=== PATIENT | male | born 1970 | race Caucasian/White ===

== ENCOUNTER 2022-10-06 15:44 | Outpatient (CLI) | payer OTHER, SELFPAY ==
--- NOTE | 2022-10-06 16:00 | CRLHL7_ITS ---
For Patients: As a result of the Cures Act, medical imaging exams and procedure reports are released immediately into your electronic medical record. You may view this report before your referring provider. If you have questions, please contact your health care provider. Indication: SINUS PAIN AND PRESSURE. SINUSITIS Technique: Performed without IV contrast Comparison: 03/15/2020 Findings: Frontal sinuses: Trace mucosal thickening within the frontal sinuses. Ethmoid sinuses: Patchy mucosal thickening within the ethmoid sinuses. Maxillary sinuses: Mild mucosal thickening within the inferior maxillary sinuses, left greater than right. The maxillary sinus drainage pathways are patent on both sides. Sphenoid sinuses: Trace mucosal thickening bilaterally. Patent sphenoethmoidal recesses. Nasal Cavity: Postoperative changes. No polyps. No TMJ abnormalities identified. The visualized portions of the orbits, intracranial contents and upper soft tissue neck are grossly negative. Impression: 1. Mild bilateral sinus disease. Decreased mucosal thickening left sphenoid sinus. 2. Patency of the sinus drainage pathways. Please note that all CT scans at this facility use dose modulation, iterative reconstruction, and/or weight-based dosing when appropriate to reduce radiation dose to as low as reasonably achievable. Dictated by Suman Orellana MD @ 10/07/2022 11:29:37 AM (Electronically Signed)
== END 2022-10-06 15:45 | disposition home or self-care (01) ==
LOC: CT 15:46
PROVIDERS: PCP Family Medicine; Visit Provider Otolaryngology
DX: J32.9 Chronic sinusitis, unspecified (principal); J32.3 Chronic sphenoidal sinusitis
CPT/HCPCS: 70486

== ENCOUNTER 2022-12-04 13:15 | Outpatient (CLI) | payer OTHER, SELFPAY | END 2022-12-04 13:16 | disposition home or self-care (01) | PROVIDERS: PCP Family Medicine; Visit Provider Family Medicine | DX: Z00.00 Encounter for general adult medical examination without abnormal findings (principal); E78.5 Hyperlipidemia, unspecified; R55 Syncope and collapse; Z12.5 Encounter for screening for malignant neoplasm of prostate | CPT/HCPCS: 80048; 80061; 84153 ==

== ENCOUNTER 2022-12-28 07:59 | Outpatient (CLI) | payer OTHER, SELFPAY ==
--- NOTE | 2022-12-28 08:15 | CRLHL7_ITS ---
For Patients: As a result of the Century Cures Act, medical imaging exams and procedure reports are released immediately into your electronic medical record. You may view this report before your referring provider. If you have questions, please contact your health care provider. INDICATION : Cervicalgia. TECHNIQUE : Cervical spine MRI without contrast. The following sequences were obtained: Sagittal T1, T2 weighted and STIR sequences. Axial T2-weighted and gradient sequences. COMPARISON: COMPARISONNone. FINDINGS: Mild cervical kyphosis. No recent compression fracture or marrow replacing process. Posterior fossa structures are normal. Cervical cord signal is normal. No extraspinal soft tissue abnormalities. Discs/Endplates: Disc desiccation at C4-5, C5-6 and C6-7. The remaining discs are within normal limits. Findings at individual levels as follows: Craniocervical junction: Alignment is maintained. C2-C3: No spinal canal or neural foraminal stenosis. C3-C4: Shallow central protrusion minimally flattens the thecal sac. No spinal canal stenosis. Left uncovertebral arthrosis contributes to mild left neural foraminal stenosis. No right neural foraminal stenosis. C4-C5: Shallow disc bulge flattens the thecal sac without spinal canal stenosis. No neural foraminal stenosis. C5-C6: Shallow disc bulge flattens the ventral sac without spinal canal stenosis. No neural foraminal stenosis. Left uncovertebral arthrosis contributes to mild left neural foraminal stenosis. No right neural foraminal stenosis. C6-C7: Shallow disc bulge minimally flattens the thecal sac. No spinal canal or neural foraminal stenosis. C7-T1: No spinal canal or neural foraminal stenosis. T1-2: No spinal canal or neural foraminal stenosis. IMPRESSION: 1. Scattered cervical spondylosis without high-grade spinal canal/neural foraminal stenosis or neural impingement. 2. Cervical cord signal is normal. No intradural pathology Dictated by Michael Roberts MD @ 12/28/2022 1:08:32 PM (Electronically Signed)
== END 2022-12-28 08:00 | disposition home or self-care (01) ==
PROVIDERS: PCP Family Medicine; Visit Provider Family Medicine
DX: M54.2 Cervicalgia (principal); M47.892 Other spondylosis, cervical region
CPT/HCPCS: 72141

== ENCOUNTER 2023-10-12 18:30 | Emergency (ER) | payer BC, SELFPAY ==
[2023-10-12 18:36] VITALS: BP 141/97; PULSE 98; RESP 18; TEMP 36.5; O2SAT 98; BMI 22.9
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
--- OUTSIDE RECORDS SUMMARY | 2023-10-12 18:59 | XMS_ITS | Continuity of Care Document ---
Author Name Unknown Organization [facility] Address [address] [place] [address] Care Team Providers Care Assembler Clip On Sunglasses Name Role Phone Elsewhere, Pcp Primary Care Provider Unavailabl e Source Comments Patient records contain information from all sites at [facility]. For routine questions regarding patient records, call [phone] during business hours, M-F 8:00 AM - 5:00 PM Central Time. Record requests for emergency care only can be directed to [phone] at any time.[facility] Encounters Date Type Department Care Team Description 10/07/2023 Clinical Communication Pharmacy Prior Auth [id number] Larry Jones RX Approval (Emgality 120MG/ML Solution Auto-Injector) 10/04/2023 Orders Only [facility] Pharm[facility] - [address] [phone] Glenda Richards C.Ph.T. 10/03/2023 Refill Department of Neurology in [place], [place] [address] [place] [address] Alber Powers M.D. Med Refill 09/17/2023 [facility] [address] [place] [address] Palmer Quijano M.D. Sinusitis Chronic (Primary Dx) 08/31/2023 Clinical Communication Pharmacy Prior Auth [id number] Jenny Márquez 08/30/2023 Refill Department of Neurology in [address] [address] Leticia De Los Santos M.D. Med Refill 08/30/2023 Refill Department of Neurology in [address] [address] Alber Powers M.D. Med Refill 08/20/2023 3:15 PM CDT Office Visit Department of Neurology in [address] [address] Alber Powers M.D. Occipital Neuralgia (Primary Dx); Migraine Headache; Headache Unspecified 06/22/2023 9:15 AM [place] Procedure visit Department of Neurology in [address] [phone] Trinity Rivers D.O. Occipital Neuralgia 04/14/2023 9:15 AM [place] Procedure visit Department of Neurology in [address] [address] Alber Powers M.D. Occipital Neuralgia 04/02/2023 2:30 PM CDT Comprehensive Visit Department of Neurology in [address] [address] Alber Powers M.D. Migraine Headache (Primary Dx); Occipital Neuralgia 09/21/2022 Orders Only Department of Sleep Medicine in [address] [address] Eduardo Daley M.D., M.P.H. 05/20/2021 1:30 PM [place] Procedure visit Department of Physical Medicine and Rehabilitation in [address] [phone] Mannie Ashford D.O. Pain Neck (Primary Dx); Myofascial Pain Syndrome; Myalgia 04/28/2021 Clinical Communication Department of Physical Medicine and Rehabilitation in [address] [phone] Mannie Ashford D.OCristel 04/18/2021 Orders Only Department of Physical Medicine and Rehabilitation in [place], [place] [address] [place] [address] Mannie Ashford D.O. Pain Neck (Primary Dx); Myofascial Pain Syndrome 04/15/2021 3:30 PM [place] Comprehensive Visit Department of Physical Medicine and Rehabilitation in [address] [phone] Mannie Ashford D.O. Pain Neck (Primary Dx); Spondylosis Cervical Without Myelopathy; Myofascial Pain Syndrome 04/03/2021 2:30 PM CDT Office Visit Department of Neurology in [address] [phone] Eduardo Daley M.D., M.P.H. 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 02/20/2021 Orders Only Department of Pain Medicine in [address] [address] Mannie Wild D.O. 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 Dauffenbach, Jason P, D.O. Pain Neck; Spondylosis Cervical Without Myelopathy Discharge Disposition: Home or Self Care 01/29/2021 Clinical Communication Department of Pain Medicine in [address] [address] Mannie Wild D.O. 01/23/2021 9:15 AM CDT Comprehensive Visit Department of Physical Medicine and Rehabilitation in [address] [address] Mannie Ashford D.O. Pain Neck (Primary Dx); Spondylosis Cervical Without Myelopathy; Myofascial Pain Syndrome; Stenosis Spinal Cervical 01/20/2021 Clinical Communication Department of Sleep Medicine in [place], [place] [address] [place] [phone] Edaurdo Daley M.D., M.P.H. 01/20/2021 7:29 AM CDT - 01/20/2021 11:59 PM CDT Hospital Encounter Department of Radiology in [place] [address] [place] [phone] Eduardo Daley M.D., M.P.H. Post Traumatic Headache Unspecified Not Intractable Discharge Disposition: Home or Self Care 01/20/2021 7:29 AM CDT - 01/20/2021 11:59 PM CDT Hospital Encounter Department of Radiology in [place], [place] [address] [place] [address] Eduardo Daley M.D., M.P.H. Post Traumatic Headache Unspecified Not Intractable Discharge Disposition: Home or Self Care 01/14/2021 9:04 AM CDT - 01/14/2021 11:59 PM CDT Hospital Encounter Department of Radiology in [address] [address] Eduardo Daley M.D., M.P.H. Post Traumatic Headache Unspecified Not Intractable; Pain Neck Discharge Disposition: Home or Self Care 01/14/2021 8:00 AM CDT Comprehensive Visit Department of Neurology in [address] [phone] Eduardo Daley M.D., M.P.H. Pain Neck (Primary Dx); Post Traumatic Headache Unspecified Not Intractable Allergies No known active allergies Medications Medication Sig Dispensed Refills Start Date End Date Status omega 7-bwr-vyh-fish oil 1,000 mg (120 mg-180 mg) capsule Take 1 capsule by mouth. Takes during the school year. 09/28/2016 Active amoxicillin-pot clavulanate (AUGMENTIN) 875-125 mg per tablet Take 1 tablet by mouth 2 (two) times a day. 03/23/2023 Active rizatriptan GRAVITY PROSPECTING OPERATOR HELPER (MAXALT-GRAVITY PROSPECTING OPERATOR HELPER) 5 mg disintegrating tablet Dissolve 5 mg in the mouth as needed. 04/04/2023 Active gabapentin (Neurontin) 100 mg capsule 1 cap every night for 3 days. If symptoms not improved, increase dose per med sched to maximum 3 cap 3 times daily. 270 capsule 12 08/20/2023 Active SUMAtriptan (IMITREX) 100 mg tablet Take 1 tablet (100 mg total) by mouth as needed for migraine. May repeat dose once in 2 hours if migraine unresolved. Do not exceed 200 mg in 24 hours. 9 tablet 5 08/30/2023 Active galcanezumab-gnlm (EMGALITY) 120 mg/mL injection Inject 1 mL (120 mg total) under the skin every 30 (thirty) days. One time 240 mg dose 1 mL 11 08/31/2023 Active Active Problems Problem Noted Date Diagnosed Date Occipital Neuralgia 04/02/2023 Migraine Headache 04/03/2021 Post Traumatic Headache Unspecified Not Intracta ble 04/03/2021 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 Smoking Status as of 10/12/2023 Tobacco Use Types Packs/Day Years Used Date Smoking Tobacco: Never Assessed Social Connection and Isolat ion Panel [NHANES] Answer Date Recorded In a typical week, how many times do you talk on the phone with family, friends, or neighbors? More than three times a week 01/20/2021 How often do you get togethe r with friends or relatives? Twice a week 01/20/2021 How often do you attend chur or pentecostalism services? Never 01/20/2021 Do you belong to any clubs o r organizations such as samaritan groups, unions, fraternal or athletic groups, or school groups? Yes 01/20/2021 How often do you attend meet ings of the clubs or organizations you belong to? More than 4 times per year 01/20/2021 Are you , , di vorced, , never , or living with a partner? 01/20/2021 AUDIT-C Answer Date Recorded Q1: How often do you have a drink containing alcohol? 4 or more times a week 01/20/2021 Q2: How many drinks containi ng alcohol do you have on a typical day when you are drinking? 1 or 2 Q3: How often do you have si x or more drinks on one occasion? Less than monthly 01/20/2021 Overall Financial Resource Strain (CARDIA) Answe r Date Recorded How hard is it for you to pa y for the very basics like food, housing, medical care, and heating? Not hard at all 01/20/2021 [facility] - Occupational Stress Questionnaire Answer Date Recorded Do you feel stress - tense, restless, nervous, or anxious, or unable to sleep at night because your mind is troubled all the time - these days? Only a little 01/20/2021 Exercise Vital Sign Answer Date Recorde d On average, how many days pe r week do you engage in moderate to strenuous exercise (like a brisk walk)? 3 days 01/20/2021 On average, how many minutes do you engage in exercise at this level? 90 min 01/20/2021 Hunger Vital Sign Answer Date Recorded Within the past 12 months, y ou worried that your food would run out before you got the money to buy more. Never true 01/21/20 21 Within the past 12 months, t he food you bought just didn't last and you didn't have money to get more. Never true 01/20/2021 PRAPARE - Transportation Answer Date Re corded In the past 12 months, has l ack of transportation kept you from medical appointments or from getting medications? No 01/05 In the past 12 months, has l ack of transportation kept you from meetings, work, or from getting things needed for daily living? No 01/20/2021 Housing Stability Vital Sign Answer Isrrael e Recorded In the last 12 months, was t here a time when you were not able to pay the mortgage or rent on time? No 01/20/2021 In the last 12 months, how many places have you lived? 1 01/20/2021 In the last 12 months, was t here a time when you did not have a steady place to sleep or slept in a care home (including now)? No 01/20/2021 Nutrition Answer Date Recorded Nutrition: EVOO Fat Source Yes 01/20 On average, how many serving s of fruits and vegetables do you eat per day (serving size is equal to 1 cup or approximately the size of a tennis ball)? 0-1 01/20/2021 Dental Answer Date Recorded Dental: Regular Dentist Yes 06/18/19 Employment Answer Date Recorded Employment status Employed and actively working without restrictions 01/20/2021 Education Answer Date Recorded What is the highest level of school you have completed or the highest degree you have received? 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, [employer], [employer]) 01/20/2021 Sex and Gender Information Value Date Recorded Sex Assigned at Not on file Gender Identity Male 12/30/2020 8:23 AM CDT Sexual Orientation Straight 12/30/2020 8: 23 AM CDT Last Filed Vital Signs Vital Sign Reading Time Taken Comments Blood Pressure 132/85 08/20/2023 2:57 PM CDT Pulse 95 08/20/2023 2:57 PM CDT Temperature 36 ??C (96.8 ??F) 03/11/2021 10:44 AM CDT Respiratory Rate 16 03/11/2021 10:44 AM CDT Oxygen Saturation 100% 03/11/2021 10:35 AM CDT Inhaled Oxygen Concentration - - Weight 71 kg (156 lb 8.4 oz) 08/20/2023 2:57 PM CDT Height 172.7 cm (5' 8) 03/11/2021 9:55 AM CDT Body Mass Index 23.8 03/11/2021 9:55 AM CDT Plan of Treatment Upcoming Encounters Date Type Department Care Team (Late st Contact Info) Description 11/15/2023 9:30 AM CDT Comprehensive Visit Department of Neurology in [place], [place] [address] [place] [address] Alex Clinton M.D. [address] [place] [address] Procedures Procedure Name Priority Date/Time Associated Diagnosis Comments PM NERVE BLOCK INJECTION Routine 06/22/2023 9:15 AM [place] Occipital Neuralgia HEADACHE NERVE BLOCKS - NEUROLOGY Routine 04/14/2023 9:15 AM [place] Occipital Neuralgia WY INJ TRIGGER PNT >=3 MUS Routine 05/20/2021 2:04 PM [place] Pain Neck Myofascial Pain Syndrome FL CERVICAL SPINE MEDIAL BRANCH NERVE BLOCK INJECTION Routine 03/11/2021 10:48 AM CDT Spondylosis Cervical Without Myelopathy FL CERVICAL SPINE MEDIAL BRANCH NERVE BLOCK INJECTION Routine 02/20/2021 4:35 PM CDT Pain Neck Spondylosis Cervical Without Myelopathy MR BRAIN WITHOUT AND WITH IV CONTRAST RAD - Routine (most inpatients and all outpatients) 01/20/2021 8:55 AM CDT Post Traumatic Headache Unspecified Not Intractable MR CERVICAL SPINE WITHOUT IV CONTRAST RAD - Routine (most inpatients and all outpatients) 01/20/2021 8:34 AM CDT Post Traumatic Headache Unspecified Not Intractable DX CERVICAL SPINE 2-3 VIEWS RAD - Routine (most inpatients and all outpatients) 01/14/2021 9:26 AM CDT Post Traumatic Headache Unspecified Not Intractable Pain Neck ECHOCARDIOLOGY IMAGE EXAM Routine 03/22/2015 9:22 AM CDT ECHO STRESS Routine 03/22/2015 9:11 AM CDT RADIOLOGY IMAGE EXAM Routine 06/24/2010 2:27 PM [place] Results * Nerve Block Injection (06/22/2023 9:15 AM [place]) Narrative Trinity Rivers D.O. - 06/22/2023 9:15 AM [place] Trinity Rivers D.O. ? 06/22/2023 ??9:54 AM Nerve Block Injection Performed by: Trinity Rivers D.O. Authorized by: Trinity Rivers D.O. ?? Care team members present 1. Va Perez L.PNeil PROCEDURE SUMMARY Indications: Occipital neuralgia/migraine ?? Body area: head/face/neck Procedure location (head/face/neck nerve): Left greater occipital Greater occipital position: seated Needle size: 25 G Needle length: other (5/8 needle) Nerve block type: single injection INJECTED MEDICATIONS: Injection(s), anesthetic agent(s) and/or steroid(s): The injected medication(s) listed was divided equally between the identified injection location(s) Total volume of injectate (mL): 1.5ml ?? 1 mL BUPivacaine 0.5 % (5 mg/mL) 20 mg methylPREDNISolone acetate 40 mg/mL PROCEDURE DETAILS Greater occipital description: The patient was placed in the appropriate position with the neck in a flexed position. ??Prior to the procedure, the occipital protuberance was palpated, and a point one third from the midline on a line that connects the occipital protuberance to the mastoid process was identified as the anticipated location of the greater occipital nerve. ??Palpation was also performed to note the location of the occipital artery. The needle was introduced in a caudal to cephalad approach at a shallow angle taking care to gently contact periosteum. ?? After negative aspiration the medication was introduced in a fan like manner. Following the injection, the needle was withdrawn. ??The patient tolerated the procedure well and there were no apparent complications. ?? After an appropriate amount of observation, the patient was dismissed from the clinic in good condition under their own power. ?? Complications: no apparent complications ?? CONSENT Consent obtained: verbal Consent given by: Patient Code Number Stamper was present. PRE-PROCEDURE DETAILS Appropriate hand hygiene, gown, cap, mask, protective eyewear, sterile gloves, skin preparation, sterile drape, and strict aseptic technique were utilized as applicable for the procedure.: yes ?? Skin preparation: alcohol Trinity Rivers D.O. PROCEDURE/MINOR SURG ICAL ORDERABLES * Headache nerve block - Neurology (04/14/2023 9:15 AM [place]) Narrative [facility] - 04/14/2023 9:15 AM [place] Alber Powers M.D. ? 04/14/2023 ??9:28 AM Headache nerve block - Neurology Performed by: Alber Powers M.D. Authorized by: Alber Powers M.D. ?? Care team members present 1. Alber Powers M.D. 2. Va Perez, LCristelPCristelNCristel PROCEDURE SUMMARY Indications: occipital neuralgia Pre procedure pain score: 3/10 Post procedure pain score: 0/10 ?? Body area: head/face/neck Procedure location (head/face/neck nerve): Left greater occipital and Left lesser occipital Greater occipital position: seated Lesser occipital position: seated Needle size: 21 G Needle length: 2 in Nerve block type: single injection Nerve stimulator: no INJECTED MEDICATIONS: Injection(s), anesthetic agent(s) and/or steroid(s): The injected medication(s) listed was divided equally between the identified injection location(s) Total volume of injectate (mL): 6 Total steroid in injectate (mg): 0 ?? 4 mL BUPivacaine 0.5 % (5 mg/mL) 2 mL lidocaine 10 mg/mL (1 %) PROCEDURE DETAILS Greater occipital description: The patient was placed in the appropriate position with the neck in a flexed position. ??Prior to the procedure, the occipital protuberance was palpated, and a point one third from the midline on a line that connects the occipital protuberance to the mastoid process was identified as the anticipated location of the greater occipital nerve. ??Palpation was also performed to note the location of the occipital artery. The needle was introduced in a caudal to cephalad approach at a shallow angle taking care to gently contact periosteum. ?? After negative aspiration the medication was introduced in a fan like manner. Following the injection, the needle was withdrawn. ??The patient tolerated the procedure well and there were no apparent complications. ?? After an appropriate amount of observation, the patient was dismissed from the clinic in good condition under their own power. ?? Lesser occipital description: The patient was placed in the appropriate position with the neck in a flexed position. ??Prior to the procedure, the occipital protuberance was palpated and a point two thirds from the midline on a line that connects the occipital protuberance to the mastoid process was identified as the anticipated location of the lesser occipital nerve. The needle was introduced in a caudal to cephalad approach at a shallow angle taking care to gently contact periosteum with the tip of the needle at a shallow depth. ??After negative aspiration the medication was introduced in a fan like manner. Following the injection, the needle was withdrawn. ??The patient tolerated the procedure well and there were no apparent complications. ??After an appropriate amount of observation, the patient was dismissed from the clinic in good condition under their own power. ?? Complications: no apparent complications ?? CONSENT Consent obtained: written (Risks, benefits and alternatives were discussed and a written Informed Consent was obtained. Please see Informed Consent form for further details.) UNIVERSAL PROTOCOL All relevant documentation and testing were reviewed and available. All required blood products, implants, devices and or special equipment were made available as applicable. Pre-procedure verification was conducted and the correct site was marked if required. A fire risk assessment was done as applicable. The procedural time-out to verify correct patient, correct side/site, and procedure was conducted prior to performing the procedure and confirmed in a procedural pause. PRE-PROCEDURE DETAILS Appropriate hand hygiene, gown, cap, mask, protective eyewear, sterile gloves, skin preparation, sterile drape, and strict aseptic technique were utilized as applicable for the procedure.: yes ?? Skin preparation: alcohol SEDATION / ANESTHESIA Anesthesia method: nerve block Nerve block type: lidocaine, bupivacaine Alber Powers M.D. NEUROLOGY ORDERAB LES [facility] NA * WY INJ TRIGGER PNT >=3 MUS (05/20/2021 2:04 PM [place]) Narrative [facility] - 05/20/2021 2:04 PM [place] Mannie Ashford D.O. ? 05/21/2021 ??1:44 PM [facility]R Trigger Point Injection (Procedure Only) (Left cervical and left thoracic) Date/Time: 05/20/2021 2:04 PM Performed by: Mannie Ashford D.O. Authorized by: Mannie Ashford D.O. Care team members present 1. Rex Mcdonough, L.A.T., A.T.C. PROCEDURE SUMMARY Soft tissue site: left cervical and left thoracic Cervical: Levator scapula, upper trapezius, and rhomboid Thoracic: Lattisimus dorsi Cervical position: seated Thoracic position: prone Needle size: 27 G Needle length: 1.25 in Number of muscles injected: 3 or more muscles INJECTED MEDICATIONS The injected medication(s) listed was divided equally between the identified injection location(s) ?? Total volume of injectate (mL): ??6 2 mL lidocaine 10 mg/mL (1 %) 2 mL ropivacaine (PF) 2 mg/mL (0.2 %) 10 mg triamcinolone acetonide 40 mg/mL Other medication: ??1 mL of 8.4% sodium bicarbonate PROCEDURE DETAILS Cervical procedure description: The patient was placed in the appropriate position. Prior to the procedure, the appropriate cervical region was examined to determine the location of the trigger point(s) and optimal needle path. Thereafter, a needle was advanced into the trigger point(s) and after negative aspiration, the medication was injected. Following the injection, the needle was withdrawn. ??The patient tolerated the procedure well and there were no apparent complications. ??After an appropriate amount of observation, the patient was dismissed from the clinic in good condition under their own power. ?? Thoracic procedure description: The patient was placed in the appropriate position. ??Prior to the procedure, the thoracic region was examined to determine the location of the trigger point(s) and optimal needle path. Thereafter, a needle was advanced into the trigger point(s) and after negative aspiration, the medication was injected. Following the injection, the needle was withdrawn. ??The patient tolerated the procedure well and there were no apparent complications. ??After an appropriate amount of observation, the patient was dismissed from the clinic in good condition under their own power. ?? Complications: no apparent complications ?? ADDITIONAL PROCEDURE COMMENTS PPE use information for possible contact monitoring: PPE used during visit: Provider was wearing a mask throughout entire session. Patient was wearing a mask throughout entire session. CONSENT Consent obtained: written PRE-PROCEDURE DETAILS Appropriate hand hygiene, gown, cap, mask, protective eyewear, sterile gloves, skin preparation, sterile drape, and strict aseptic technique were utilized as applicable for the procedure.: hand hygiene performed ?? Skin preparation: ??Chlorhexidine SEDATION / ANESTHESIA Anesthesia method: topical application Topical application type: aerosol cold spray Mannie Ashford D.O. PROCEDURE/MINOR SURG ICAL ORDERABLES [facility] NA * Cervical Spine Medial Branch Nerve (03/11/2021 10:48 AM CDT) Only the most recent of2 resultswithin the time period is included. Narrative Mannie Wild D.O. - 03/11/2021 10:21 AM CDT Mannie Wild D.O. ? 03/11/2021 10:40 AM Cervical Spine Medial Branch Nerve Date/Time: 03/11/2021 10:21 AM Performed by: Mannie Wild D.O. Authorized by: Mannie Wild D.O. PROCEDURE SUMMARY Indications: Spondylosis without myelopathy Site: cervical Cervical: medial branch block Medial branch nerve block innervating the Right C4-C5, Right C5-C6, Right C6-C7, Left C4-C5, Left C5-C6 and Left C6-C7 facet joints. Needle or RF cannula: Spinal Needle size: 25 G Needle length: 3.5 in Flow: not applicable Patient position: prone INJECTED MEDICATIONS Total volume of injectate (mL): 4 ?? 4 mL bupivacaine 0.5 % (5 mg/mL) 2 mL iohexoL 300 mg iodine/mL Other medication: ??Glycopyrrolate 0.2 mg PROCEDURE DETAILS ?? Medial branch block - cervical: Using fluoroscopy, the mid-body of the articular pillar at the appropriate levels were identified and marked. Using fluoroscopic guidance, a spinal needle was advanced to each target. After negative aspiration, the contrast was injected at each site. Spread of contrast approximated the region of the medial branches/dorsal ramus and there was no evidence of intravascular uptake. The patient tolerated the procedure well and there were no apparent complications. After appropriate observation, the patient was dismissed in good condition under their own power. The patient was instructed to keep a pain diary and report the results of the injection. ?? CONSENT Consent obtained: written (splunk architect present) UNIVERSAL PROTOCOL All relevant documentation and testing were reviewed and available. All required blood products, implants, devices and or special equipment were made available as applicable. Pre-procedure verification was conducted and the correct site was marked if required. A fire risk assessment was done as applicable. The procedural time-out was conducted prior to performing the procedure and confirmed in a procedural pause. PRE-PROCEDURE DETAILS Procedure purpose: ??Diagnostic Appropriate hand hygiene, gown, cap, mask, protective eyewear, sterile gloves, skin preparation, sterile drape, and strict aseptic technique were utilized as applicable for the procedure: yes ?? Site preparation: ??Chlorhexidine SEDATION / ANESTHESIA Anesthesia method: none ATTESTATION STATEMENT The teaching physician rule is not applicable. Mannie Wild D.O. FLUORO GUIDED P AIN PROCEDURES * MR Brain without and with IV Contrast (01/20/2021 8:55 AM CDT) Anatomical Region Laterality Modality Head, Brain, Neuroradiology [facility], Neuroradiology [facility], [facility]adiology [facility] N/A Magnetic Resonance 01/20/2021 9:25 AM CDT Impressions 01/20/2021 9:43 AM CDT 1. Nonspecific scattered T2 FLAIR hyperintense white matter lesions which could be seen in the setting of chronic migraine or chronic small vessel ischemic changes. 2. No acute infarct, focal parenchymal enhancement or mass. Narrative 01/20/2021 9:43 AM CDT EXAM: MR BRAIN WITHOUT AND WITH IV CONTRAST COMPARISON:None pertinent to this exams. FINDINGS: No abnormal restricted diffusion to suggest acute infarct. No microhemorrhages. Scattered T2 FLAIR hyperintense lesions involving bilateral centrum semiovale and masterson radiata. No associated abnormal enhancement. No midline shift. The basal cisterns are patent. Flow voids of the major arteries in the skull base are intact. Bilateral orbits, paranasal sinuses and mastoid air cells are normal in signal. Procedure Note Israel Andrew M.B., Castro Santos - 01/20/2021 EXAM: MR BRAIN WITHOUT AND WITH IV CONTRAST COMPARISON:None pertinent to this exams. FINDINGS: No abnormal restricted diffusion to suggest acute infarct. No microhemorrhages. Scattered T2 FLAIR hyperintense lesions involving bilateral centrumsemiovale and masterson radiata. No associated abnormal enhancement. No midline shift. The basal cisterns are patent. Flow voids of the major arteries in the skull base are intact. Bilateral orbits, paranasal sinuses and mastoid air cells are normal insignal. IMPRESSION: 1. Nonspecific scattered T2 FLAIR hyperintense white matter lesions whichcould be seen in the setting of chronic migraine or chronic small vesselischemic changes. 2. No acute infarct, focal parenchymal enhancement or mass. Eduardo Daley M.D., M.P.H. [facility] MRI PROC EDURES * MR Cervical Spine without IV Contrast (01/20/2021 8:34 AM CDT) Anatomical Region Laterality Modality Spine, Cervical Spine, Neuro radiology [facility], Neuroradiology [facility], Neuroradiology [facility] N/A Magneti c Resonance 01/20/2021 8:37 AM CDT Impressions 01/20/2021 8:55 AM CDT 1. No acute fracture or traumatic listhesis. 2. Unchanged mild reversal of cervical lordosis. 3. Mild cervical spondylosis mostly at C6-C7 level with mild bilateral neural foraminal narrowing. Narrative 01/20/2021 8:55 AM CDT EXAM: ??MR CERVICAL SPINE WITHOUT IV CONTRAST COMPARISON: ??Cervical spine radiograph, 01/14/2021 FINDINGS: Craniocervical alignment is normal. Reversed lordosis centered at C4 level, unchanged. Bone marrow signal is age-appropriate. The spinal cord is normal in signal. Skull base-C2: ??The foraminal magnum is patent. C2-3: ??Central canal and neural foramina are patent. C3-4: ??Small disc bulge with mild effacement of the ventral thecal sac. No significant neural foraminal narrowing. C4-5: ??Small disc bulge with mild-moderate effacement of the ventral thecal sac. No significant neural foraminal narrowing. C5-6: ??Central canal and neural foramina are patent. C6-7: ??Mild uncovertebral and facet hypertrophy with mild bilateral neural foraminal narrowing. The central canal is patent. C7-T1: ??Central canal and neural foramina are patent. The paraspinal soft tissues are unremarkable. Procedure Note Israel Andrew M.B., Castro Santos - 01/20/2021 EXAM: MR CERVICAL SPINE WITHOUT IV CONTRAST COMPARISON: Cervical spine radiograph, 01/14/2021 FINDINGS: Craniocervical alignment is normal. Reversed lordosis centered at T3inzkb, unchanged. Bone marrow signal is age-appropriate. The spinal cord is normal insignal. Skull base-C2: The foraminal magnum is patent. C2-3: Central canal and neural foramina are patent. C3-4: Small disc bulge with mild effacement of the ventral thecal sac.No significant neural foraminal narrowing. C4-5: Small disc bulge with mild-moderate effacement of the ventralthecal sac. No significant neural foraminal narrowing. C5-6: Central canal and neural foramina are patent. C6-7: Mild uncovertebral and facet hypertrophy with mild bilateralneural foraminal narrowing. The central canal is patent. C7-T1: Central canal and neural foramina are patent. The paraspinal soft tissues are unremarkable. IMPRESSION: 1. No acute fracture or traumatic listhesis. 2. Unchanged mild reversal of cervical lordosis. 3. Mild cervical spondylosis mostly at C6-C7 level with mild bilateralneural foraminal narrowing. Eduardo Daley M.D., M.P.H. [facility] MRI PROC EDURES * DX Cervical Spine 2-3 Views (01/14/2021 9:26 AM CDT) Anatomical Region Laterality Modality Cervical Spine, Musculoskele marian RST LOS, Neuroradiology ARZ LOS, Muskuloskeletal FLA LOS N/A Digita l Radiography 01/14/2021 9:42 AM CDT Impressions 01/14/2021 9:44 AM CDT Vertebral body heights maintained without evidence of vertebral compression fracture. Mild broad reversal of the normal cervical lordosis. No focal spondylolisthesis or angulation at any level. Mild to moderate degenerative disc disease from C4-C7. Facet arthropathy is moderate in severity and most pronounced bilaterally at C7-T1. Prevertebral soft tissues are normal. Lung apices are clear. Narrative 01/14/2021 9:44 AM CDT EXAM: DX CERVICAL SPINE 2-3 VIEWS Procedure Note Josef Bowling M.D. - 01/14/2021 EXAM: DX CERVICAL SPINE 2-3 VIEWS IMPRESSION: Vertebral body heights maintained without evidence of vertebral compression fracture. Mild broad reversal of the normal cervical lordosis.No focal spondylolisthesis or angulation at any level. Mild to moderate degenerative disc disease from C4-C7. Facet arthropathy is moderate inseverity and most pronounced bilaterally at C7-T1. Prevertebral soft tissues arenormal. Lung apices are clear. Eduardo Daley M.D., M.P.H. [facility] IMAGING PROCEDURES * ECHOCARDIOLOGY IMAGE EXAM (03/22/2015 9:22 AM CDT) Anatomical Region Laterality Modality Other 03/22/2015 9:22 AM CDT Addenda Addendum by ProviderEdgar M.D. on 03/22/2015 9:22 AM CDT ECHO^^^MCR Non-Radiology Image 03/22/2015 09:22:00 Historical Provider IMG NON RAD IMAGING PROCEDURES * Echo Stress (03/22/2015 9:11 AM CDT) Anatomical Region Laterality Modality Echocardiography 03/22/2015 9:11 AM CDT Historical Provider CV ECHO PROCEDURES * XR Chest 2 Views (06/24/2010 2:27 PM [place]) Anatomical Region Laterality Modality Other 06/24/2010 2:27 PM [place] Historical Provider IMG NON RAD IMAGING PROCEDURES Visit Diagnoses Diagnosis Start Date Post Traumatic Headache Unspecified Not Intractable 01/14/2021 Pain Neck 01/14/2021 Post Traumatic Headache Unspecified Not Intractable 01/14/2021 Pain Neck 01/14/2021 Post Traumatic Headache Unspecified Not Intractable 01/20/2021 Post Traumatic Headache Unspecified Not Intractable 01/20/2021 Pain Neck 01/23/2021 Spondylosis Cervical Without Myelopathy 01/23/2021 Myofascial Pain Syndrome 01/23/2021 Stenosis Spinal Cervical 01/23/2021 Spondylosis Cervical Without Myelopathy 02/20/2021 Pain Neck 02/20/2021 Spondylosis Cervical Without Myelopathy 02/20/2021 Spondylosis Cervical Without Myelopathy 03/11/2021 Migraine Headache 04/03/2021 Post Traumatic Headache Unspecified Not Intractable 04/03/2021 Pain Neck 04/15/2021 Spondylosis Cervical Without Myelopathy 04/15/2021 Myofascial Pain Syndrome 04/15/2021 Pain Neck 04/18/2021 Myofascial Pain Syndrome 04/18/2021 Pain Neck 05/20/2021 Myofascial Pain Syndrome 05/20/2021 Myalgia 05/20/2021 Migraine Headache 04/02/2023 Occipital Neuralgia 04/02/2023 Occipital Neuralgia 04/14/2023 Occipital Neuralgia 06/22/2023 Occipital Neuralgia 08/20/2023 Migraine Headache 08/20/2023 Headache Unspecified 08/20/2023 Sinusitis Chronic 09/17/2023 Care Teams Assembler Clip On Sunglasses Relationship Specialty Start Date End Date Elsewhere, Pcp PCP - General Family Medicine 02/20/21
--- OUTSIDE RECORDS SUMMARY | 2023-10-12 18:59 | XMS_ITS | Clinical Summary ---
Author Name Unknown Organization [facility] Address [place], [place] [address] Care Team Providers Care Delivery Manager Name Role Phone Giacomo Mcclain MD Primary Care Provider [phone] Allergies No known active allergies Medications Medication Sig Dispensed Refills Start Date End Date Status csejmbxf-hkr-YO-lyc open-lutein (CENTRUM SILVER MEN) 300-600-300 mcg tab Take 1 tablet by mouth once daily. 0 09/28/2016 Active Txekx-8-GNU-EPA-Fis h Oil (FISH OIL) 1,000 mg (120 mg-180 mg) cap Take 1 capsule by mouth once daily. 0 09/28/2016 Active nortriptyline (PAMELOR) 10 mg capsule 02/04/2022 Active SUMAtriptan (IMITREX) 100 mg tablet 02/23/2022 Active diclofenac (VOLTAREN) 75 mg delayed-release tablet Take 75 mg by mouth. 10/07/2020 Active methylPREDNISolone (Medrol, John,) 4 mg tabletIndications:S ubacute maxillary sinusitis Take by mouth as instructed per packaging. 21 Tablet 04/15/2022 Active 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 Tobacco Use Types Packs/Day Years Used Date Smoking Tobacco: Never Smokeless Tobacco: Never Tobacco Cessation:Counseling Given: Yes Social Connections Answer Date Recorded Frequency of Communication with Friends and Fami ly Not on file 06/07/2021 Financial Resource Strain Answer Date R ecorded Difficulty of Paying Living Expenses Not on file 06/07/2021 Difficulty of Paying Living Expenses Not on file 06/07/2021 Sex and Gender Information Value Date Recorded Sex Assigned at Not on file Gender Identity Not on file Sexual Orientation Not on file Obstetrics History Last Filed Vital Signs Vital Sign Reading Time Taken Comments Blood Pressure 120/80 04/15/2022 12:48 PM ASSISTANCE COORDINATOR Pulse 98 04/15/2022 12:58 PM ASSISTANCE COORDINATOR Temperature 36.4 ??C (97.6 ??F) 04/15/2022 12:[address] Respiratory Rate 14 04/15/2022 12:48 PM ASSISTANCE COORDINATOR Oxygen Saturation 98% 04/15/2022 12:48 PM ASSISTANCE COORDINATOR Inhaled Oxygen Concentration - - Weight 68.6 kg (151 lb 4.8 oz) 04/15/2022 12:48 PM ASSISTANCE COORDINATOR Height 173.5 cm (5' 8.31) 09/28/2016 8:31 AM CD T Body Mass Index 22.8 09/28/2016 8:31 AM CDT Plan of Treatment Health Maintenance Due Date Last Done Comments Tdap 1981 Depression screening for age 12+ 1982 HIV for age 15-65 1985 Hepatitis C screening for ag e 18-79 1988 Tetanus booster 1990 Colonoscopy through age 75 2015 Lipids for age 45-75 2015 BMI (ht and wt on same day) for age 18+ 09/28/2017 09/28/2016 Zoster (shingles) series for age 50+ (1 of 2) 2020 COVID-19 vaccine series (2022- season) 2023 04/25/2021, 08/29/2020, 07/31/2020 Influenza for age 50-64 02/06/2024 Pneumococcal series for age 6-64 Aged Out No longer eligible b ased on patient's age to complete this topic Care Teams Delivery Manager Relationship Specialty Start Date End Date Giacomo Mcclain MD [address] [place] [address] PCP - General Family Practice 06/28/20
--- OUTSIDE RECORDS SUMMARY | 2023-10-12 18:59 | XMS_ITS | Encounter Summary ---
Author Name Unknown Organization [facility] Address [address] [place] [address] Care Team Providers Care Director Sterile Processing Name Role Phone Elsewhere, Pcp Primary Care Provider Unavailabl e Reason for Visit * Reason Onset Date Comments RX Approval 10/07/2023 Emgality 120MG/M L Solution Auto-Injector Encounter Details Date Type Department Care Team (Latest Contact Info) Description 10/07/2023 Clinical Communication Pharmacy Prior Auth RO [phone] Larry Jones RX Approval (Emgality 120MG/ML Solution Auto-Injector) 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 Tobacco Use Types Packs/Day Years Used Date Smoking Tobacco: Never Smokeless Tobacco: Never Social Connection and Isolat ion Panel [NHANES] Answer Date Recorded In a typical week, how many times do you talk on the phone with family, friends, or neighbors? More than three times a week 01/20/2021 How often do you get togethe r with friends or relatives? Twice a week 01/20/2021 How often do you attend chur or rastafari services? Never 01/20/2021 Do you belong to any clubs o r organizations such as moravian groups, unions, fraternal or athletic groups, or [...] and heating? Not hard at all 01/20/2021 [facility] of Occupat ional Health - Occupational Stress Questionnaire Answer Date [...] place to sleep or slept in a alf (including now)? No 01/20/2021 Nutrition Answer Date [...] 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, BEHAVIORAL HEALTH TECH, JHONATAN) 01/20/2021 Sex and Gender Information Value Date Recorded Sex Assigned at Not on file Gender Identity Male 12/30/2020 8:23 AM CDT Sexual Orientation Straight 12/30/2020 8: 23 AM CDT documented as of this encounter Miscellaneous Notes * Telephone Encounter - Larry Jones - 10/07/2023 9:40 AM CDT Pharmaceutical prior authorization has been approved for Emgality 120MG/ML Solution Auto-Injector. If you have any follow-up questions, please send an [place] message to P [facility] EPA POOL. documented in this encounter Plan of Treatment Upcoming Encounters Date Type Department Care Team (Late st Contact Info) Description 11/15/2023 9:30 AM CDT Comprehensive Visit Department of Neurology in [place], [place] [address] [place] [address] Alex Clinton M.D. [address] [place] [address] documented as of this encounter Visit Diagnoses Not on filedocumented in this encounter Care Teams Director Sterile Processing Relationship Specialty Start Date End Date Elsewhere, Pcp PCP - General Family Medicine 02/20/21 documented as of this encounter
--- OUTSIDE RECORDS SUMMARY | 2023-10-12 18:59 | XMS_ITS | Encounter Summary ---
Author Name Unknown Organization [facility] Address [address] [place] [address] Care Team Providers Care Sap Grc Security Name Role Phone Elsewhere, Pcp Primary Care Provider Unavailabl e Encounter Details Date Type Department Care Team (Late st Contact Info) Description 10/04/2023 Orders Only [facility] - [place] [address] [place] [address] Glenda Rihcards C.Ph.T. [address] [place] [address] 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 Tobacco Use Types Packs/Day Years [...] 01/20/2021 How often do you attend chur ch or evangelical services? Never 01/20/2021 Do you belong to any clubs o r organizations such as quaker groups, unions, fraternal or athletic groups, or [...] and heating? Not hard at all 01/20/2021 [facility] of Occupat ional Health - Occupational Stress [...] place to sleep or slept in a correction (including now)? No 01/20/2021 Nutrition Answer Date [...] 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, PATIENT REGISTRATION MANAGER, JHONATAN) 01/20/2021 Sex and Gender Information Value Date Recorded Sex Assigned at Not on file Gender Identity Male 12/30/2020 8:23 AM CDT Sexual Orientation Straight 12/30/2020 8: 23 AM CDT documented as of this encounter Plan of Treatment Upcoming Encounters Date Type Department Care Team (Late st Contact Info) Description 11/15/2023 9:30 AM CDT Comprehensive Visit Department of Neurology in [place], [place] [address] [place] [address] Alex Clinton M.D. [address] [place] [address] documented as of this encounter Visit Diagnoses Not on filedocumented in this encounter Care Teams Sap Grc Security Relationship Specialty Start Date End Date Elsewhere, Pcp PCP - General Family Medicine 02/20/21 documented as of this encounter
--- OUTSIDE RECORDS SUMMARY | 2023-10-12 18:59 | XMS_ITS | Encounter Summary ---
Author Name Unknown Organization [facility] Address [address] [place] [address] Care Team Providers Care Forklift Operator Name Role Phone Elsewhere, Pcp Primary Care Provider Unavailabl e Reason for Visit * Reason Comments Med Refill Encounter Details Date Type Department Care Team (Late st Contact Info) Description 10/03/2023 Refill Department of Neurology in [place], [place] [address] [address] Alber Powers M.D. [address] [place] [phone] Med Refill 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 Tobacco Use Types Packs/Day Years [...] often do you attend chur ch or baptism services? Never 01/20/2021 Do you belong to any clubs o r organizations such as mandaeism groups, unions, fraternal or athletic groups, or [...] and heating? Not hard at all 01/20/2021 [facility] of Occupat ional Health - Occupational Stress [...] place to sleep or slept in a skilled nursing (including now)? No 01/20/2021 Nutrition Answer Date [...] 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, FISHER TRAMMEL NET, JHONATAN) 01/20/2021 Sex and Gender Information Value Date Recorded Sex Assigned at Not on file Gender Identity Male 12/30/2020 8:23 AM CDT Sexual Orientation Straight 12/30/2020 8: 23 AM CDT documented as of this encounter Plan of Treatment Upcoming Encounters Date Type Department Care Team (Late st Contact Info) Description 11/15/2023 9:30 AM CDT Comprehensive Visit Department of Neurology in [place], [place] [address] [place] [address] Alex Clinton M.D. [address] [place] [address] documented as of this encounter Visit Diagnoses Not on filedocumented in this encounter Care Teams Forklift Operator Relationship Specialty Start Date End Date Elsewhere, Pcp PCP - General Family Medicine 02/20/21 documented as of this encounter
--- OUTSIDE RECORDS SUMMARY | 2023-10-12 18:59 | XMS_ITS | Referral Summary ---
Author Name Unknown Organization [facility] Address [address] [place] [address] Care Team Providers Care Data Security Consultant Name Role Phone Elsewhere, Pcp Primary Care Provider Unavailabl e Source Comments Patient records contain information from all sites at [facility]. For routine questions regarding patient records, call [phone] during business hours, M-F 8:00 AM - 5:00 PM Central Time. Record requests for emergency care only can be directed to [phone] at any time.[facility] Encounters Date Type Department Care Team Description 10/07/2023 Clinical Communication Pharmacy Prior Auth [id number] Larry Jones RX Approval (Emgality 120MG/ML Solution Auto-Injector) 10/04/2023 Orders Only [facility] Pharmacy - [address] [phone] Glenda Richards, Gorge.Ph.T. 10/03/2023 Refill Department of Neurology in [place], [place] [address] [place] [address] Alber Powers M.D. Med Refill 09/17/2023 [facility] [address] [place] [address] Palmer Quijano M.D. Sinusitis Chronic (Primary Dx) 08/31/2023 Clinical Communication Pharmacy Prior Auth [phone] Jenny Márquez 08/30/2023 Refill Department of Neurology in [place], [place] [address] [place] [phone] Leticia De Los Santos M.D. Med Refill 08/30/2023 Refill Department of Neurology in [place], [place] [address] [place] [phone] Alber Powers M.D. Med Refill 08/20/2023 3:15 PM CDT Office Visit Department of Neurology in [place], [place] [address] [place] [phone] Alber Powers M.D. Occipital Neuralgia (Primary Dx); Migraine Headache; Headache Unspecified from Last 3 Months Allergies No known active allergies Medications Medication Sig Dispensed Refills Start Date End Date Status omega 7-sbl-law-fish oil 1,000 mg (120 mg-180 mg) capsule Take 1 capsule by mouth. Takes during the school year. 09/28/2016 Active amoxicillin-pot clavulanate (AUGMENTIN) 875-125 mg per tablet Take 1 tablet by mouth 2 (two) times a day. 03/23/2023 Active rizatriptan ESTIMATOR (MAXALT-ESTIMATOR) 5 mg disintegrating tablet Dissolve 5 mg [...] Unspecified Not Intracta ble 04/03/2021 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 Tobacco Use Types Packs/Day Years Used Date Smoking Tobacco: Never Smokeless Tobacco: Never Tobacco Cessation:Counseling Given: Not Answered Social Connection and Isolat ion Panel [NHANES] Answer Date Recorded In a typical week, how many times do you talk on the phone with family, friends, or neighbors? More than three times a week 01/20/2021 How often do you get togethe r with friends or relatives? Twice a week 01/20/2021 How often do you attend chur ch or presybeterian services? Never 01/20/2021 Do you belong to any clubs o r organizations such as yarsanism groups, unions, fraternal or athletic groups, or [...] and heating? Not hard at all 01/20/2021 [facility] of Occupat ional Health - Occupational Stress [...] place to sleep or slept in a detention (including now)? No 01/20/2021 Nutrition Answer Date [...] 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, BLACK TOP SPREADER MACHINE OPERATOR, JHONATAN) 01/20/2021 Sex and Gender Information Value [...] CDT Comprehensive Visit Department of Neurology in [place], [place] [address] [place] [address] Alex Clinton M.D. [address] [place] [address] Care Teams Data Security Consultant Relationship Specialty Start Date End Date Elsewhere, Pcp PCP - General Family Medicine 02/20/21
--- OUTSIDE RECORDS SUMMARY | 2023-10-12 18:59 | XMS_ITS ---
Author Name Unknown Organization [facility] Address [address] [place] [address] Care Team Providers Care Knock Out Hand Name Role Phone Unavailable Unavailable Unavailable Surgery Details Not on file Complications Check Surgery Details section. Procedure Estimated Blood Loss Check Surgery Details section. Procedure Findings Check Surgery Details section. Procedure Specimens Taken Check Surgery Details section.
--- OUTSIDE RECORDS SUMMARY | 2023-10-12 19:00 | XMS_ITS | Encounter Summary ---
Author Name Unknown Organization [facility] Address [address] [place] [address] Care Team Providers Care Head Refrigeration Engineer Name Role Phone Elsewhere, Pcp Primary Care Provider Unavailabl e Reason for Visit * Reason Comments Med Refill Encounter Details Date Type Department Care Team (Late st Contact Info) Description 08/30/2023 Refill Department of Neurology in [place], [place] [address] [place] [address] Leticia De Los Santos M.D. [address] [place] [address] Med Refill 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 Tobacco Use Types [...] often do you attend chur ch or mandaen services? Never 01/20/2021 Do you belong to any clubs o r organizations such as roman catholic groups, unions, fraternal or athletic groups, or [...] and heating? Not hard at all 01/20/2021 [facility] - Occupational Stress Questionnaire Answer Date [...] place to sleep or slept in a jail (including now)? No 01/20/2021 Nutrition Answer Date [...] 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, HEEL TOP LIFT SPLITTER, JHONATAN) 01/20/2021 Sex and Gender Information Value Date Recorded Sex Assigned at Not on file Gender Identity Male 12/30/2020 8:23 AM CDT Sexual Orientation Straight 12/30/2020 8: 23 AM CDT documented as of this encounter Plan of Treatment Upcoming Encounters Date Type Department Care Team (Late st Contact Info) Description 11/15/2023 9:30 AM CDT Comprehensive Visit Department of Neurology in [place], [place] [address] [place] [address] Alex Clinton M.D. [address] [place] [address] documented as of this encounter Visit Diagnoses Not on filedocumented in this encounter Care Teams Head Refrigeration Engineer Relationship Specialty Start Date End Date Elsewhere, Pcp PCP - General Family Medicine 02/20/21 documented as of this encounter
--- OUTSIDE RECORDS SUMMARY | 2023-10-12 19:00 | XMS_ITS | Encounter Summary ---
Author Name Unknown Organization [facility] Address [address] [place] [address] Care Team Providers Care Break Out Man Name Role Phone Elsewhere, Pcp Primary Care Provider Unavailabl e Reason for Referral * Outpatient (Routine) - Authorized Specialty Diagnoses / Procedures Referred By Harsh dooley Referred To Contact Neurology Diagnoses Occipital Neuralgia Headache Unspecified Alber Powers M.D. [address] [place] [phone] [facility] Referral ID Status Reason Start Date Expiration Date V isits Requested Visits Authorized [id number] Authorized 08/20/2023 02/18/2025 1 1 Reason for Visit * Reason Comments Headache * Appointment Request (Routine) - Closed Specialty Diagnoses / Procedures Referred By Harsh dooley Referred To Contact Neurology Referral ID Status Reason Start Date Expiration Date Visits Re quested Visits Authorized [id number] Closed 07/19/2023 07/18/2024 1 1 Encounter Details Date Type Department Care Team (Late st Contact Info) Description 08/20/2023 3:15 PM CDT Office Visit Department of Neurology in [place], [place] [address] [place] [phone] Alber Powers M.D. [address], [place] [address] Occipital Neuralgia (Primary Dx); Migraine Headache; Headache Unspecified 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 Tobacco Use Types Packs/Day Years [...] often do you attend chur ch or islam services? Never 01/20/2021 Do you belong to any clubs o r organizations such as taoism groups, unions, fraternal or athletic groups, or [...] and heating? Not hard at all 01/20/2021 [facility] - Occupational [...] place to sleep or slept in a long-term (including now)? No 01/20/2021 Nutrition Answer Date [...] 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, STATIONARY ENGINEER APPRENTICE, [employer]) 01/20/2021 Sex and Gender Information Value Date Recorded Sex Assigned at Not on file Gender Identity Male 12/30/2020 8:23 AM CDT Sexual Orientation Straight 12/30/2020 8: 23 AM CDT documented as of this encounter Last Filed Vital Signs Vital Sign Reading Time Taken Comments Blood Pressure 132/85 08/20/2023 2:57 PM CDT Pulse 95 08/20/2023 2:57 PM CDT Temperature - - Respiratory Rate - - Oxygen Saturation - - Inhaled Oxygen Concentration - - Weight 71 kg (156 lb 8.4 oz) 08/20/2023 2:57 PM CDT Height - - Body Mass Index 23.8 03/11/2021 9:55 AM CDT documented in this encounter Progress Notes * Alber Powers M.D. - 08/20/2023 3:15 PM CDT SUBJECTIVE CHIEF COMPLAINT / REASON FOR VISIT Destin Schroeder is a 53 y.o. male who presents for evaluation of . 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 Also arrange for occipital nerve block. The occipital nerve block was helpful however did not last as long as we had hoped and we repeated an injection in June with steroids that was performed by Dr. Rivers here in [place]. With the initiation of Emgality he actually has fairly good control of his migraine headaches as they significantly reduced in frequency. He initially mentioned a message to us through the portal about his Emgality wearing off before his next dose although it sounds as though a number of other headpain and headache symptoms of were what he was really experiencing after clarifying with him today.Of it sounds as though he would have some difficulties with what he largely describes as a squeezing, needing and burning-like pain largely centered as a focal spot in the middle of the forehead although at times there can be a more bandlike component although not all the time. The burning and needing component can also move around. He endorses as well different pain in the left side of the neck as well as in the posterior neck and shoulder blade on the left. He did state that because of his symptoms in his forehead he was prescribed Augmentin as well as antihistamines to help with potential sinus infection component. This did help somewhat in terms of removing the burning component but he still had a pressure and squeezing like sensation in the middle of the forehead. REVIEW OF SYSTEMS REVIEW OF SYSTEMS OBJECTIVE PHYSICAL EXAM General: Male in his 50s, alert, attentive, no acute distress Vitals: BP 132/85, HR 95 Neuro: Limited exam today. Alert and interactive. Cranial nerves grossly symmetric. Antigravity strength all extremities. Casual gait is normal. For details of the neurologic examination, please see the neurologic examination form. ASSESSMENT / PLAN #1 Occipital Neuralgia #2 Migraine Headache After clarifying today it sounds as though his migraine headaches in his occipital neuralgia overall are under fairly good control with the initiation of Emgality and occipital nerve blocks. The other pains that he is describing do not seem consistent with migraine and seem like a relatively focal burning type sensation largely centered in the middle of the forehead as outlined below. #3 Focal burning and needing leg pain in the procerus and midline forehead region His symptoms are somewhat peculiar as they do not necessarily fit with a classical tension-type headache nor necessarily local nerve irritation with supraorbital or perhaps supratrochlear branch nerve irritation although again it does not fit definitively in these dermatomes necessarily. I did discuss with him a trial of low-dose gabapentin with slow uptitration to see if this would help with anyof largely neuropathic pain symptoms that he is describing. He does have a meeting with ENT to discuss if any sinus symptoms could be at play and I would encourage him to discuss that with them. Additionally I discussed with him referral to the headache Clinic in [place] to determine if they would have any additional more advanced therapies or a good explanation for his predominantly forehead symptoms given their fairly distressing to him. We would should have a good trial of gabapentin completed prior to this appointment. Questions answered the best my ability. Encouraged him to reach out to our office with questions orconcerns. Total time 25 minutes documented in this encounter Plan of Treatment Upcoming Encounters Date Type Department Care Team (Late st Contact Info) Description 11/15/2023 9:30 AM CDT Comprehensive Visit Department of Neurology in [place], [place] [address] [place] [phone] Alex Clinton M.D. [address] [place] [address] Scheduled Referrals Name Type Priority Associated Diagnoses Orde r Schedule Neurology - Headache consult (clinic) Outpatient Referral Routine Occipital Neuralgia Headache Unspecified Expected: 08/20/2023, Expires: 11/19/2024 documented as of this encounter Visit Diagnoses Diagnosis Occipital Neuralgia- Primary Migraine Headache Headache Unspecified documented in this encounter Care Teams Break Out Man Relationship Specialty Start Date End Date Elsewhere, Pcp PCP - General Family Medicine 02/20/21 documented as of this encounter
--- OUTSIDE RECORDS SUMMARY | 2023-10-12 19:00 | XMS_ITS | Encounter Summary ---
Author Name Unknown Organization [facility] Address [address] [place] [address] Care Team Providers Care Licensed Embalmer Name Role Phone Elsewhere, Pcp Primary Care Provider Unavailabl e Reason for Referral * Outpatient (Routine) - Authorized Specialty Diagnoses / Procedures Referred By Harsh t Referred To Contact Otorhinolaryngology Diagnoses Sinusitis Chronic Palmer Quijano M.D. [address] [place] [address] [facility] Referral ID Status Reason Start Date Expiration Date V isits Requested Visits Authorized [id number] Authorized 09/17/2023 03/18/2025 1 1 Encounter Details Date Type Department Care Team (Late st Contact Info) Description 09/17/2023 [facility] [address] [place] [address] Palmer Quijano M.D. [address] [place] [phone] Sinusitis Chronic (Primary Dx) 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 Tobacco Use Types Packs/Day Years [...] often do you attend chur ch or protestant services? Never 01/20/2021 Do you belong to any clubs o r organizations such as pentecostal groups, unions, fraternal or athletic groups, or [...] and heating? Not hard at all 01/20/2021 [facility] - Occupational [...] 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, POTATO CHIP PACKAGING MACHINE OPERATOR, [employer]) 01/20/2021 Sex and Gender Information Value Date Recorded Sex Assigned at Not on file Gender Identity Male 12/30/2020 8:23 AM CDT Sexual Orientation Straight 12/30/2020 8: 23 AM CDT documented as of this encounter Plan of Treatment Upcoming Encounters Date Type Department Care Team (Late st Contact Info) Description 11/15/2023 9:30 AM CDT Comprehensive Visit Department of Neurology in [place], [place] [address] [place] [phone] Alex Clinton M.D. [address] [place] [phone] Scheduled Referrals Name Type Priority Associated Diagnoses Order Schedule Otolaryngology Referral Outpatient Referral Routine Sinusitis Chronic Expected: 09/17/2023 (Approximate), Expires: 12/16/2024 documented as of this encounter Visit Diagnoses Diagnosis Sinusitis Chronic- Primary documented in this encounter Care Teams Licensed Embalmer Relationship Specialty Start Date End Date Elsewhere, Pcp PCP - General Family Medicine 02/20/21 documented as of this encounter
--- OUTSIDE RECORDS SUMMARY | 2023-10-12 19:00 | XMS_ITS | Encounter Summary ---
Author Name Unknown Organization [facility] Address [address] [place] [address] Care Team Providers Care Petroleum Blending Plant Operator Name Role Phone Elsewhere, Pcp Primary Care Provider Unavailabl e Reason for Visit * Reason Comments Med Refill Encounter Details Date Type Department Care Team (Late st Contact Info) Description 08/30/2023 Refill Department of Neurology in [place], [place] [address] [phone] Alber Powers M.D. [address], [place] [address] Med Refill 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 Tobacco Use [...] often do you attend chur ch or anabaptist services? Never 01/20/2021 Do you belong to any clubs o r organizations such as zoroastrian groups, unions, fraternal or athletic groups, or [...] and heating? Not hard at all 01/20/2021 [facility] - Occupational Stress [...] 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, EDITOR IN CHIEF, JHONATAN) 01/20/2021 Sex and Gender Information Value Date Recorded Sex Assigned at Not on file Gender Identity Male 12/30/2020 8:23 AM CDT Sexual Orientation Straight 12/30/2020 8: 23 AM CDT documented as of this encounter Plan of Treatment Upcoming Encounters Date Type Department Care Team (Late st Contact Info) Description 11/15/2023 9:30 AM CDT Comprehensive Visit Department of Neurology in [place], [place] [address] [place] [address] Alex Clinton M.D. [address] [place] [address] documented as of this encounter Visit Diagnoses Not on filedocumented in this encounter Care Teams Petroleum Blending Plant Operator Relationship Specialty Start Date End Date Elsewhere, Pcp PCP - General Family Medicine 02/20/21 documented as of this encounter
--- OUTSIDE RECORDS SUMMARY | 2023-10-12 19:00 | XMS_ITS | Encounter Summary ---
Author Name Unknown Organization [facility] Address [address] [place] [address] Care Team Providers Care Aemt Name Role Phone Elsewhere, Pcp Primary Care Provider Unavailabl e Encounter Details Date Type Department Care Team (Late st Contact Info) Description 08/31/2023 Clinical Communication Pharmacy Prior Auth [id number] [phone] Jenny Márquez 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 Tobacco Use Types Packs/Day Years [...] often do you attend chur ch or episcopalian services? Never 01/20/2021 Do you belong to [...] and heating? Not hard at all 01/20/2021 [facility] - Occupational Stress [...] place to sleep or slept in a longterm (including now)? No 01/20/2021 Nutrition Answer Date [...] 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, WEATHER STRIPPER, JHONATAN) 01/20/2021 Sex and Gender Information Value Date Recorded Sex Assigned at Not on file Gender Identity Male 12/30/2020 8:23 AM CDT Sexual Orientation Straight 12/30/2020 8: 23 AM CDT documented as of this encounter Plan of Treatment Upcoming Encounters Date Type Department Care Team (Late st Contact Info) Description 11/15/2023 9:30 AM CDT Comprehensive Visit Department of Neurology in [place], [place] [address] [place] [address] Alex Clinton M.D. [address] [place] [address] documented as of this encounter Visit Diagnoses Not on filedocumented in this encounter Care Teams Aemt Relationship Specialty Start Date End Date Elsewhere, Pcp PCP - General Family Medicine 02/20/21 documented as of this encounter
[2023-10-12 19:36] VITALS: PULSE 68
--- NOTE | 2023-10-12 20:11 | CT_ITS ---
Patient: SHAINA RENTERIA Facility:?[facility] Patient ID:?[id number] Site Patient ID:?[id number] Site :?[id number] Study:?CT-Knee Right WO-10/12/2023 8:37:15 PM Ordering Physician:JUSTIN Final Report: Indication: Tibial plateau fracture. Technique: Multiple axial CT images of the right knee without contrast. Sagittal and coronal reformatted images were submitted for review. Comparison: Right knee radiographs 10/12/2023. Findings: There is a splitting comminuted, impacted and depressed fracture of the lateral tibial plateau which extends to involve the medial tibial spine and posterior medial aspect of the medial tibial plateau. There is approximately 7 mm of depression in the lateral tibial plateau with up to 20 mm of lateral widening on axial image 125 of series 3. Fracture line also extends to the tibial fibular joint and into the proximal lateral tibial diaphysis. No additional fracture demonstrated. No additional osseous abnormality. Hardware in the distal femur as imaged appears intact. Large lipohemarthrosis. Soft tissues elsewhere as imaged are unremarkable. Impression: 1. Comminuted, splitting and depressed fracture of the lateral tibial plateau with extension into the posterior medial tibial plateau. 2. Large lipohemarthrosis. Dictated by Mannie Helton MD @ 10/12/2023 8:57:43 PM Please note that all CT scans at this facility use dose modulation, iterative reconstruction, and/or weight-based dosing when appropriate to reduce radiation dose to as low as reasonably achievable. Dictated by: Mannie Helton MD @ 10/12/2023 20:57:54 Signed by:Fina Helton MD @10/12/2023 8:57:54 PM (Electronic Signature)
[2023-10-12 20:15] VITALS: O2SAT 98
[2023-10-12 20:30] VITALS: BP 128/84; PULSE 74; RESP 18; TEMP 36.5; O2SAT 98
[2023-10-12 21:30] VITALS: BP 132/74; PULSE 78; RESP 18; TEMP 36.5; O2SAT 98
[2023-10-12 21:48] VITALS: BP 132/74; PULSE 78; RESP 18; TEMP 36.5
== END 2023-10-12 21:58 | disposition home or self-care (01) ==
PROVIDERS: Emergency Provider Emergency Medicine Emergency Medical Services; PCP Family Medicine
DX: S82.101A Unspecified fracture of upper end of right tibia, initial encounter for closed fracture (principal); V19.3XXA Pedal cyclist (driver) (passenger) injured in unspecified nontraffic accident, initial encounter
CPT/HCPCS: 73552; 73560; 73700; 94761; 99284

== ENCOUNTER 2024-01-20 09:13 | Outpatient (CLI) | payer BC, SELFPAY ==
--- OUTSIDE RECORDS SUMMARY | 2024-01-20 09:16 | XMS_ITS | Encounter Summary ---
Author Organization [facility] Address [address] [place] [address]. [place] [address] Care Team Providers Care Plant Puller Name Role Phone Suman Hartman MD Primary Care Provider [phone] Encounter Details Date Type Department Care Team (Late st Contact Info) Description 10/15/2023 11:00 AM CDT Office Visit [facility] [address] [place] [phone] Sonia Roldan 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 Tobacco Use Types Packs/Day Years Used Date Smoking Tobacco: Never Smokeless Tobacco: Never Alcohol Use Standard Drinks/Week Comments Yes 0 (1 standard drink = 0.6 oz pur e alcohol) occ Adolescent Education Answer Date Record ed Getting School Help Needed Not on file 10/14 Sex and Gender Information Value Date Recorded Sex Assigned at Not on file Gender Identity Not on file Sexual Orientation Not on file documented as of this encounter Plan of Treatment Not on file documented as of this encounter Visit Diagnoses Not on filedocumented in this encounter Care Teams Plant Puller Relationship Specialty Start Date End Date Suman Hartman MD [facility] [address] [place] [address] PCP - General Family Medicine 10/15/23 documented as of this encounter
--- OUTSIDE RECORDS SUMMARY | 2024-01-20 09:16 | XMS_ITS | Encounter Summary ---
Author Organization [facility] Address formerly [facility] [address] Care Team Providers Care Senior Relationship Manager Name Role Phone Suman Hartman MD Primary Care Provider + [phone] Reason for Visit * Auth/Cert Specialty Diagnoses / Procedures Referred By Contac t Referred To Contact Surgery Diagnoses Fracture of tibial plateau, closed, right, initial encounter Fracture of tibial plateau, closed, right, initial encounter [S82.141A] Procedures IN OPEN TX TIBIAL FRACTURE PROXIMAL UNICONDYLAR IN OPEN RX BILAT TIB PLAT FX Open reduction internal fixation tibial plateau fracture, right knee Periop Services [address] [place] [address] Referral ID Status Reason Start Date Expiration Date Visits Re quested Visits Authorized [id number] 1 1 Encounter Details Date Type Department Care Team (Late st Contact Info) Description 10/15/2023 1:26 PM CDT Anesthesia Event [facility] PeriOp Services [address] [place] [phone] [facility] ANESTHESIA [address] [place], [place] [address] Anesthesia Record Procedure Summary Procedure Name Responsible Anesthesiologist Anesthesia Start Time Anesthesia Stop Time Open reduction and internal fixation of right Schatzker 2 tibial plateau fracture (Right: Knee) Fahad Wisdom MD 10/15/23 1326 10/15/23 1618 Events Date Time Event Comment 10/15/2023 1326 An Start 1326 MD Present 1329 An Start Data 1330 AN REASSESS I attest that I have identified and re-evaluated the patient immediately before the induction of anesthesia and I am satisfied that the anesthetic plan is suitable for the patient's condition and procedure. The first vital signs recorded are pre- induction. Rachel Valentin, DIANDRA ASSISTANT DEAN 1330 MD Present 1331 An Induction 1332 An LMA 1332 MD Present 1335 Anesthesia Ready for Procedu re 1335 MD Present 1335 MD Present 1354 Quick Note Tourniquet infl ated RLE 300mmHg. 1410 MD Present 1505 MD Present 1550 MD Present 1611 MD Present 1612 LMA Removed 1612 an stop data 1618 An Stop Electronically signed by Bhanu Zendejas APRN CRNA on October 15, 2023 4:18 PM 1618 MD Present Meds Name Total midazolam 1 mg/mL 2 mg ketorolac 30 mg/mL 30 mg lidocaine 2% 50 mg propofol 10 mg/mL 200 mg propofol drip mcg/kg/min 516.71 mg phenylephrine (LAURA-SYNEPHRINE) injection 200 mcg dexamethasone (DECADRON) 4 mg/mL 8 mg ondansetron 2 mg/mL 4 mg glycopyrrolate 0.2 mg/mL 0.2 mg ceFAZolin Sodium (ANCEF) injection 2 g 2 g methadone 10 mg/mL 20 mg rocuronium 10 mg/mL 20 mg lactated ringers infusion 1,300 mL * Agents Name O2 N2O Air Exp Sevoflurane Exp Isoflurane Exp Desflurane Ins Sevoflurane Ins Isoflurane Ins Desflurane * Blood No blood administrations on file. Lines, Drains, and Airways Type Details Placement Removal Incision/Surgical Site 10/15/23; 1555; R ight; Tibial 10/15/23 1555 by Pramod Preciado RN Peripheral IV 10/15/23; 1156; 20 G ; Right; Antecubital fossa; Chlorhexidine; Tolerated well 10/15/23 1156 by Nola Unger RN 10/15/23 1849 by Chelsea Loving RN Urethral Catheter 10/15/23; 1342; No; Surgical procedure; 16 fr; Other (comment) (End of surgery) 10/15/23 1342 by Pramod Preciado RN 10/15/23 1556 by Pramod Preciado RN Supraglottic Airway Placement Date: 10/15/23; Placement Time: 1342 (created via procedure documentation); Mask Ventilation: 1; LMA Size: 4; Airway Brand: I-Gel; Attempts: 1 10/15/23 1343 by Rachel Valentin APRN ASSISTANT DEAN 10/15/23 1612 by Bhanu Zendejas APRN ASSISTANT DEAN Brace/Orthotic/Orthosis 10/15/23; 1613; lower, right; leg; immobilizer, hinged brace (Immobilizer); 10/15/23; 211010/15/23 161 by Anna Maier RN 10/15/232110 by Inpatient, Nurse documented in this encounter 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 Tobacco Use Types Packs/Day Years [...] on file documented as of this encounter OR Notes * Anesthesia Postprocedure Evaluation - Fahad Wisdom MD - 10/15/2023 4:19 PM CDT Patient: Destin Schroeder Procedure: Procedure(s): Open reduction internal fixation tibial plateau fracture, right knee Anesthesia Type: General Note: Disposition: Inpatient Postop Pain Control: Challenging Challenges/Interventions: Acute Pain Sign Out: ONGOING pain issues (pain in foot distant from surgical site. Surgeon aware.) PONV: No Neuro/Psych: Uneventful Sign Out: Acceptable/Baseline neuro status Airway/Respiratory: Uneventful Sign Out: Acceptable/Baseline resp. status CV/Hemodynamics: Uneventful Sign Out: Acceptable CV status; No obvious hypovolemia; No obvious fluid overload Other NRE: NONE DID A NON-ROUTINE EVENT OCCUR? No Last vitals: Vitals Value Taken Time BP 155/101 10/15/23 1615 Temp Pulse 91 10/15/23 1618 Resp 4 10/15/23 1618 SpO2 98 % 10/15/23 1618 Vitals shown include unfiled device data. Electronically Signed By: Fahad Wisdom MD October 15, 2023 4:19 PM * Anesthesia Procedure Notes - Rachel Valentin APRN CRNA - 10/15/2023 1:43 PM CDTAssociated Order(s): Airway Airway Patient location during procedure: OR Staff - ASSISTANT DEAN: Rachel Valentin APRN CRNA Performed By: ASSISTANT DEAN Consent for Airway Urgency: elective Indications and Patient Condition Indications for airway management: burt-procedural Induction type:intravenous Mask difficulty assessment: 1 - vent by mask Final Airway Details Final airway type: supraglottic airway Supraglottic Airway Details Type: LMA Brand: I-Gel LMA size: 4 Post intubation assessment Placement verified by: capnometry, equal breath sounds and chest rise Number of attempts at approach: 1 Number of other approaches attempted: 0 Secured with: commercial tube hyde Ease of procedure: easy Dentition: Unchanged * Anesthesia Preprocedure Evaluation - Fahad Wisdom MD - 10/15/2023 10:05 AM CDT Anesthesia Pre-Procedure Evaluation Patient: Destin Schroeder : 1970 Procedure : Procedure(s): Open reduction internal fixation tibial plateau fracture, right knee History reviewed. No pertinent past medical history. History reviewed. No pertinent surgical history. No Known Allergies 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 Tobacco Use Smoking status: Never Smokeless tobacco: Never Substance Use Topics Alcohol use: Yes Comment: occ Wt Readings from Last 1 Encounters: No data found for Wt Anesthesia Evaluation Pt has had prior anesthetic. Type: General. No history of anesthetic complications ROS/MED HX ENT/Pulmonary: - neg pulmonary ROS Neurologic: Comment: Congenital hearing loss (+) migraines, Cardiovascular: - neg cardiovascular ROS METS/Exercise Tolerance: Hematologic: - neg hematologic ROS Musculoskeletal: - neg musculoskeletal ROS GI/Hepatic: - neg GI/hepatic ROS Renal/Genitourinary: - neg Renal ROS Endo: - neg endo ROS Psychiatric/Substance Use: - neg psychiatric ROS Infectious Disease: - neg infectious disease ROS Malignancy: - neg malignancy ROS Other: - neg other ROS Physical Exam Airway Mallampati: I TM distance: > 3 FB Neck ROM: full Mouth opening: > 3 cm Respiratory Devices and Support Dental Cardiovascular cardiovascular exam normal Rhythm and rate: regular and normal Pulmonary pulmonary exam normal breath sounds clear to auscultation OUTSIDE LABS: CBC: No results found for: WBC, HGB, HCT, PLT BMP: No results found for: NA, POTASSIUM, CHLORIDE, CO2, BUN, CR, GLC COAGS: No results found for: PTT, INR, FIBR POC: No results found for: BGM, HCG, HCGS HEPATIC: No results found for: ALBUMIN, PROTTOTAL, ALT, AST, GGT, ALKPHOS, BILITOTAL,BILIDIRECT, ROSSANA OTHER: No results found for: PH, LACT, A1C, JOSÉ MIGUEL, PHOS, MAG, LIPASE, AMYLASE, TSH,T4, T3, CRP, SED Anesthesia Plan ASA Status: 2 NPO Status: NPO Appropriate Anesthesia Type: General. - Airway: LMA Induction: Intravenous. Maintenance: Balanced. Consents Anesthesia Plan(s) and associated risks, benefits, and realistic alternatives discussed. Questions answered and patient/lifeline representatives(s) expressed understanding. - Discussed: Risks, Benefits and Alternatives for BOTH SEDATION and the PROCEDURE were discussed - Discussed with: Patient, Rubber Off - Extended Intubation/Ventilatory Support Discussed: No. - Patient is DNR/DNI Status: No Use of blood products discussed: No . Postoperative Care Pain management: IV analgesics, Oral pain medications, Multi-modal analgesia. - Plan for long acting post-op opioid use PONV prophylaxis: Ondansetron (or other 5HT-3), Dexamethasone or Solumedrol, Background Propofol Infusion Comments: Other Comments: Methadone for opiate analgesia Fahad Wisdom MD I have reviewed the pertinent notes and labs in the chart from the past 30 days and (re)examined the patient. Any updates or changes from those notes are reflected in this note. documented in this encounter Miscellaneous Notes * Addendum Note - Fahad Wisdom MD - 10/15/2023 5:35 PM CDT Addendum created 10/15/23 1735 by Fahad Wisdom MD Clinical Note Signed * Anesthesia Care Transfer Note - Bhanu Zendejas APRN CRNA - 10/15/2023 4:18 PM CDT Patient: Destin Schroeder Procedure: Procedure(s): Open reduction internal fixation tibial plateau fracture, right knee Diagnosis: Fracture of tibial plateau, closed, right, initial encounter [S82.141A] Diagnosis Additional Information: No value filed. Anesthesia Type: General Note: Oropharynx: oropharynx clear of all foreign objects Level of Consciousness: drowsy Oxygen Supplementation: face mask Level of Supplemental Oxygen (L/min / FiO2): 6 Independent Airway: airway patency satisfactory and stable Dentition: dentition unchanged Vital Signs Stable: post-procedure vital signs reviewed and stable Report to RN Given: handoff report given Patient transferred to: PACU Handoff Report: Identifed the Patient, Identified the Reponsible Provider, Reviewed the pertinent medical history, Discussed the surgical course, Reviewed Intra-OP anesthesia mangement and issues during anesthesia, Set expectations for post-procedure period and Allowed opportunity for questions andacknowledgement of understanding Vitals: Vitals Value Taken Time BP 155/101 10/15/23 1615 Temp Pulse 84 10/15/23 1617 Resp 4 10/15/23 1617 SpO2 98 % 10/15/23 1617 Vitals shown include unfiled device data. Electronically Signed By: Bhanu Zendejas APRN CRNA October 15, 2023 4:18 PM documented in this encounter Plan of Treatment Not on file documented as of this encounter Procedures Procedure Name Priority Date/Time Associated Diagnosis Comments ANE AIRWAY SUPRAGLOTTIC PERFORMABLE Routine 10/15/2023 1:43 PM CDT documented in this encounter Results * ANE AIRWAY SUPRAGLOTTIC PERFORMABLE (10/15/2023 1:43 PM CDT) Narrative Rachel Valentin APRN ASSISTANT DEAN - 10/15/2023 1:43 PM CDT Rachel Valentin APRN ASSISTANT DEAN ? 10/15/2023 ??1:43 PM Airway ? Patient location during procedure: OR Staff - ? ASSISTANT DEAN: Rachel Valentin APRN ASSISTANT DEAN ? Performed By: ASSISTANT DEAN Consent for Airway ? Urgency: elective Indications and Patient Condition ? Indications for airway management: burt-procedural ? Induction type:intravenous ? Mask difficulty assessment: 1 - vent by mask Final Airway Details ? Final airway type: supraglottic airway Supraglottic Airway Details ? Type: LMA ? Brand: I-Gel ? LMA size: 4 Post intubation assessment ? Placement verified by: capnometry, equal breath sounds and chest rise ? Number of attempts at approach: 1 ? Number of other approaches attempted: 0 ? Secured with: commercial tube hyde ? Ease of procedure: easy ? Dentition: Unchanged Fahad Wisdom MD IN [facility] [place] documented in this encounter Visit Diagnoses Not on filedocumented in this encounter Administered Medications Inactive Administered Medications - up to 3 most recent administrations Medication Order MAR Action Action Date Dose Rate Site ceFAZolin Sodium (ANCEF) injection 2 g Routine, 2 g, Intravenous, PRE-OP/PRE-PROCEDURE, Starting on Wed10/15/23 at 1123, For 1 dose, Give first dose within 1 hour PRIOR to incision. If patient weight is greater than or equal to 120 kg increase dose to 3 g., Indications: Perioperative Pharmacoprophylaxis, Pre-procedure $Given 10/15/2023 1:26 PM CDT 2 g dexAMETHasone (DECADRON) injection Intravenous, PRN, Administer over 1 Minutes, Starting on Wed10/15/23 at 1331, Anesthesia Intra-op $Given 10/15/2023 1:31 PM CDT 8 mg glycopyrrolate (ROBINUL) injection Intravenous, PRN, Administer over 1-2 Minutes, Starting on Wed10/15/23 at 1331, Anesthesia Intra-op $Given 10/15/2023 1:31 PM CDT 0.2 mg ketorolac (TORADOL) injection Intravenous, PRN, Administer over 2 Minutes, Starting on Wed10/15/23 at 1331, Anesthesia Intra-op $Given 10/15/2023 1:31 PM CDT 30 mg lactated ringers infusion at 10 mL/hr, Intravenous, CONTINUOUS, IF patient NOT on dialysis., Pre-procedure, Starting on Wed10/15/23 at 1130, Until Wed10/15/23 at 1613 $New Bag 10/15/2023 2:57 PM CDT Restarted 10/15/2023 1:26 PM CDT $New Bag 10/15/2023 11:56 AM CDT 10 mL/hr lidocaine 2% injection (MDV) Intravenous, PRN, Starting on Wed10/15/23 at 1331, Anesthesia Intra-op $Given 10/15/2023 1:31 PM CDT 50 mg methadone (DOLOPHINE) injection Intravenous, PRN, Starting on Wed10/15/23 at 1331, Anesthesia Intra-op $Given 10/15/2023 1:31 PM CDT 20 mg midazolam (VERSED) injection Intravenous, Administer over 2 Minutes, PRN, Starting on Wed10/15/23 at 1328, Anesthesia Intra-op $Given 10/15/2023 1:28 PM CDT 2 mg ondansetron (ZOFRAN) injection Intravenous, PRN, Administer over 2-5 Minutes, Starting on Wed10/15/23 at 1331, Anesthesia Intra-op $Given 10/15/2023 1:31 PM CDT 4 mg phenylephrine (LAURA-SYNEPHRINE) injection Intravenous, CONTINUOUS PRN, Starting on Wed10/15/23 at 1336, Anesthesia Intra-op $New Bag 10/15/2023 1:36 PM CDT 200 mcg propofol (DIPRIVAN) infusion Intravenous, CONTINUOUS PRN, Starting on Wed10/15/23 at 1331, Anesthesia Intra-op $New Bag 10/15/2023 1:31 PM CDT 50 mcg/kg/min 21.09 mL/hr propofol (DIPRIVAN) injection 10 mg/mL vial Intravenous, PRN, Starting on Wed10/15/23 at 1331, Anesthesia Intra-op $Given 10/15/2023 1:31 PM CDT 200 mg rocuronium injection Intravenous, PRN, Starting on Wed10/15/23 at 1331, Anesthesia Intra-op $Given 10/15/2023 1:31 PM CDT 20 mg documented in this encounter Care Teams Senior Relationship Manager Relationship Specialty Start Date End Date Suman Hartman MD [facility] [address] [place] [address] PCP - General Family Medicine 10/15/23 documented as of this encounter
--- OUTSIDE RECORDS SUMMARY | 2024-01-20 09:16 | XMS_ITS | Encounter Summary ---
Author Organization [facility] Address [address] [place] [address]. [place] [address] Care Team Providers Care Analytics Intern Name Role Phone Suman Hartman MD Primary Care Provider Encounter Details Date Type Department Care Team (Late st Contact Info) Description 10/15/2023 4:05 PM CDT Office Visit [facility] Supervisor Services [address] [place] [phone] Suman Martin 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 Tobacco Use Types Packs/Day Years [...] on filedocumented in this encounter Care Teams Analytics Intern Relationship Specialty Start Date End Date Suman Hartman MD [facility] [address] [place] [address] PCP - General Family Medicine 10/15/23 documented as of this encounter
--- OUTSIDE RECORDS SUMMARY | 2024-01-20 09:16 | XMS_ITS | Clinical Summary ---
Author Organization [facility] Address [address] [place] [address] Care Team Providers Care Painter Spray Name Role Phone Suman Hartman MD Primary Care Provider Allergies No known active allergies Medications Medication Sig Dispensed Refills Start Date End Date Status galcanezumab-gnlm (EMGALITY) 120 MG/ML injection Inject 120 mg Subcutaneous every 28 days Active oxyCODONE (ROXICODONE) 5 MG tablet Take 5 mg by mouth every 6 hours as needed for severe pain Active ibuprofen (ADVIL/MOTRIN) 200 MG capsule Take 200 mg by mouth every 4 hours as needed for fever Active acetaminophen (TYLENOL) 325 MG tabletIndications:Cl osed fracture of right tibial plateau, initial encounter Take 2 tablets (650 mg) by mouth every 4 hours as needed for mild pain 50 tablet 10/15/2023 Active oxyCODONE (ROXICODONE) 5 MG tabletIndications:Cl osed fracture of right tibial plateau, initial encounter Take 1-2 tablets (5-10 mg) by mouth every 4 hours as needed for moderate to severe pain 26 tablet 10/15/2023 Active senna-docusate (SENOKOT-S/PERICOLAC E) 8.6-50 MG tabletIndications:Cl osed fracture of right tibial plateau, initial encounter Take 1-2 tablets by mouth 2 times daily 30 tablet 10/15/2023 Active rivaroxaban ANTICOAGULANT (XARELTO) 10 MG TABS tabletIndications:Cl osed fracture of right tibial plateau, initial encounter Take 1 tablet (10 mg) by mouth daily (with dinner) for 30 days 30 tablet 10/15/2023 Active Active Problems No known active problems 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 Tobacco Use Types Packs/Day Years Used Date Smoking Tobacco: Never Smokeless Tobacco: Never Tobacco Cessation:Counseling Given: Not Answered Alcohol Use Standard Drinks/Week Comments Yes 0 (1 standard drink = 0.6 oz pur e alcohol) occ Adolescent Education Answer Date Record ed Getting School Help Needed Not on file 10/14 Sex and Gender Information Value Date Recorded Sex Assigned at Not on file Gender Identity Not on file Sexual Orientation Not on file Last Filed Vital Signs Vital Sign Reading Time Taken Comments Blood Pressure 148/99 10/15/2023 6:47 PM CDT Pulse 99 10/15/2023 6:47 PM CDT Temperature 36.8 ??C (98.2 ??F) 10/15/2023 6:47 PM CD T Respiratory Rate 18 10/15/2023 6:47 PM CDT Oxygen Saturation 94% 10/15/2023 6:47 PM CDT Inhaled Oxygen Concentration - - Weight 70.3 kg (154 lb 14.4 oz) 024 11:29 AM CDT Height 172.7 cm (5' 8) 10/15/2023 11:2 9 AM CDT Body Mass Index 23.55 10/15/2023 11:29 AM CDT Plan of Treatment Health Maintenance Due Date Last Done Comments ADVANCE CARE PLANNING 1970 ANNUAL REVIEW OF HM ORDERS 1970 CT COLONOGRAPHY 1970 FIT 1970 FLEX SIG 1970 GLUCOSE 1970 YEARLY PREVENTIVE VISIT 1970 sDNA (Cologuard) 1970 COLONOSCOPY 1980 COLORECTAL CANCER SCREENING 1980 HIV SCREENING 1985 HEPATITIS C SCREENING 1988 HEPATITIS B IMMUNIZATION (1 of 3 - 19+ 3-dose series) 1989 LIPID 2010 ZOSTER IMMUNIZATION (1 of 2) 2020 COVID-19 Vaccine ( - 2022- season) 2023 05/21/2022, 04/25/2021, 08/29/2020, Additional history exists PHQ-2 (once per calendar year) 2023 INFLUENZA VACCINE (#1) 2024 05/21/2022, 2021 DTAP/TDAP/TD IMMUNIZATION (3 - Td or Tdap) 06/06/2031 06/06/2021, 12/24/2005 HPV IMMUNIZATION Aged Out No longer e ligible based on patient's age to complete this topic IPV IMMUNIZATION Aged Out No longer e ligible based on patient's age to complete this topic MENINGITIS IMMUNIZATION Aged Out No l onger eligible based on patient's age to complete this topic Pneumococcal Vaccine: Pediatrics (0 to 5 Years) and At-Risk Patients (6 to 64 Years) Aged Out No longer eligible based on patient's age to complete this topic RSV MONOCLONAL ANTIBODY Aged Out No l onger eligible based on patient's age to complete this topic Medical Devices Implanted Type Area Burner Tender Device Identifier Shelf Expiration Date Model / Serial / Lot Drillable Bone Void Filler 5 Cc Implanted:Qty : 1 on 10/15/2023 by Francis Banks MD at [facility] Cement, Bone Right: Knee Depuy 01/01/2026 07.705.00 5S / / [id number] Drillable Bone Void Filler, 3cc Implanted:Qty : 1 on 10/15/2023 by Francis Banks MD at [facility] Cement, Bone Right: Knee SYNTHES 02/01/2026 07.705.00 3S / / [id number] Imp Scr Syn Ang Locking 3.5x80mm 02.127.180 - [id number] Implanted:Qty : 1 on 10/15/2023 by Francis Banks MD at [facility] Metallic Hardware/Anc hor Right: Tibia SYNTHES-STRATEC 02.127.18 0 / / LOAD [id number] SEPTEMBER 30 2023 Imp Scr Syn Cortex 3.5x34mm Self Tap Ss 204.834 - [id number] Implanted:Qty : 1 on 10/15/2023 by Francis Banks MD at [facility] Metallic Hardware/Anc hor Right: Tibia SYNTHES-STRATEC 204.834 / / LOAD [id number] 07 OCT 2023 Plate Proximal Tibia 6h Rt 3.4x702kk - [id number] Implanted:Qty : 1 on 10/15/2023 by Francis Banks MD at [facility] Metallic Hardware/Anc hor Right: Tibia SYNTHES-STRATEC 02.127.22 0 / / LOAD 8102 SEPTEMBER 30 2023 Screw Stardrive W/T15 3.5x32mm - [id number] Implanted:Qty : 1 on 10/15/2023 by Francis Banks MD at [facility] Metallic Hardware/Anc hor Right: Tibia SYNTHES-STRATEC 02.127.13 2 / / LOAD 8102 SEPTEMBER 30 2023 Screw Stardrive W/T15 3.5x34mm - [id number] Implanted:Qty : 1 on 10/15/2023 by Francis Banks MD at [facility] Metallic Hardware/Anc hor Right: Tibia SYNTHES-STRATEC 02.127.13 4 / / LOAD 8102 SEPTEMBER 30 2023 Screw Stardrive W/T15 3.5x50mm - [id number] Implanted:Qty : 2 on 10/15/2023 by Francis Banks MD at [facility] Metallic Hardware/Anc hor Right: Tibia SYNTHES-STRATEC 02.127.15 0 / / LOAD 8102 SEPTEMBER 30 2023 Imp Scr Syn Ang Locking 3.5x70mm 02.127.170 - [id number] Implanted:Qty : 1 on 10/15/2023 by Francis Banks MD at [facility] Metallic Hardware/Anc hor Right: Tibia SYNTHES-STRATEC 02.127.17 0 / / LOAD 8102 SEPTEMBER 30 2023 Screw Stardrive W/T15 3.5x75mm - [id number] Implanted:Qty : 2 on 10/15/2023 by Francis Banks MD at [facility] Metallic Hardware/Anc hor Right: Tibia SYNTHES-STRATEC 02.127.17 5 / / LOAD 8102 SEPTEMBER 30 2023 Imp Wire Jane 1.6v923sd 292.71 - [id number] Implanted:Qty : 10 on 10/15/2023 by Francis Banks MD at [facility] Right: Knee SYNTHES-STRATEC 292.71 / / LOAD [id number] 07 OCT 2023 Care Teams Painter Spray Relationship Specialty Start Date End Date Suman Hartman MD [facility] [address] [address] PCP - General Family Medicine 10/15/23
--- OUTSIDE RECORDS SUMMARY | 2024-01-20 09:16 | XMS_ITS | Clinical Summary ---
Author Organization [facility] Address [place], [place] [address] Care Team Providers Care Auto Washer Name Role Phone Giacomo Mcclain MD Primary Care Provider [phone] Allergies No known active allergies Medications Medication Sig Dispensed Refills Start Date End Date Status wcxtxpcf-yjy-HU-lyc open-lutein (CENTRUM SILVER MEN) 300-600-300 mcg tab Take 1 tablet by mouth once daily. 0 09/28/2016 Active Wrbsm-0-FYJ-EPA-Fis h Oil (FISH OIL) 1,000 mg (120 [...] Comments Blood Pressure 120/80 04/15/2022 12:48 PM MULTIMEDIA TECHNICIAN Pulse 98 04/15/2022 12:58 PM MULTIMEDIA TECHNICIAN Temperature 36.4 ??C (97.6 ??F) 04/15/2022 12:[address] Respiratory Rate 14 04/15/2022 12:48 PM MULTIMEDIA TECHNICIAN Oxygen Saturation 98% 04/15/2022 12:48 PM MULTIMEDIA TECHNICIAN Inhaled Oxygen Concentration - - Weight 68.6 kg (151 lb 4.8 oz) 04/15/2022 12:48 PM MULTIMEDIA TECHNICIAN Height 173.5 cm (5' 8.31) 09/28/2016 8:31 [...] age to complete this topic Care Teams Auto Washer Relationship Specialty Start Date End Date Giacomo Mcclain MD [address] [place] [phone] PCP - General Family Practice 06/28/20
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
--- OUTSIDE RECORDS SUMMARY | 2024-01-20 09:16 | XMS_ITS | Referral Summary ---
Author Organization [place] Address [address] [place] [id number] Care Team Providers Care Dialysis Technician Name Role Phone Suman Hartman MD Primary [...] 10/15/2023 11:29 AM CDT Plan of Treatment Not on file Medical Devices Implanted Type Area Heat Seal Operator Device Identifier Shelf Expiration Date Model / Serial / Lot Drillable Bone Void Filler 5 Cc Implanted:Qty : 1 on 10/15/2023 by Francis Banks MD at [facility] Cement, Bone Right: Knee Depuy 01/01/2026. 5S / / [id number] Drillable Bone Void Filler, 3cc Implanted:Qty : 1 on 10/15/2023 by Francis Banks MD at [facility] Cement, Bone Right: Knee SYNTHES 02/01/2026. 3S / / [id number] Imp Scr Syn Ang Locking 3.5x80mm 180 - [id number] Implanted:Qty : 1 on 10/15/2023 by Francis Banks MD at [facility] Metallic Hardware/Anc hor Right: Tibia SYNTHES-STRATEC 18 0 / / LOAD 8102 SEPTEMBER 30 2023 Imp Scr Syn Cortex 3.5x34mm Self Tap Ss 204.834 - [id number] Implanted:Qty : 1 on 10/15/2023 by Francis Banks MD at [facility] Metallic Hardware/Anc hor Right: Tibia SYNTHES-STRATEC 204.834 / / LOAD 8006 07 OCT 2023 Plate Proximal Tibia 6h Rt 3.2v162vs - [id number] Implanted:Qty : 1 on 10/15/2023 by Francis Banks MD at [facility] Metallic Hardware/Anc hor Right: Tibia SYNTHES-STRATEC 02.127.22 0 / / LOAD 8102 SEPTEMBER 30 2023 Screw Stardrive W/T15 3.5x32mm - [id number] Implanted:Qty : 1 on 10/15/2023 by Francis Banks MD at [facility] Metallic Hardware/Anc hor Right: Tibia SYNTHES-STRATEC 02.127.13 2 / / LOAD 8102 SEPTEMBER 30 2023 Screw Stardrive W/T15 3.5x34mm - [id number] Implanted:Qty : 1 on 10/15/2023 by Francis Banks MD at [facility] Metallic Hardware/Anc hor Right: Tibia SYNTHES-STRATEC 02.127.13 4 / / LOAD 8102 SEPTEMBER 30 2023 Screw Stardrive W/T15 3.5x50mm - [id number] Implanted:Qty : 2 on 10/15/2023 by Francis Banks MD at [facility] Metallic Hardware/Anc hor Right: Tibia SYNTHES-STRATEC 02.127.15 0 / / LOAD 8102 SEPTEMBER 30 2023 Imp Scr Syn Ang Locking 3.5x70mm 02.127.170 - [id number] Implanted:Qty : 1 on 10/15/2023 by Francis Banks MD at [facility] Metallic Hardware/Anc hor Right: Tibia SYNTHES-STRATEC 02.127.17 0 / / LOAD 8102 SEPTEMBER 30 2023 Screw Stardrive W/T15 3.5x75mm - [id number] Implanted:Qty : 2 on 10/15/2023 by Francis Banks MD at [facility] Metallic Hardware/Anc hor Right: Tibia SYNTHES-STRATEC 02.127.17 5 / / LOAD 8102 SEPTEMBER 30 2023 Imp Wire Jane 1.2t331xg 292.71 - [id number] Implanted:Qty : 10 on 10/15/2023 by Francis Banks MD at [facility] Right: Knee SYNTHES-STRATEC 292.71 / / LOAD 8006 07 OCT 2023 Care Teams Dialysis Technician Relationship Specialty Start Date End Date Suman Hartman MD [facility] [address] [place] [address] PCP - General Family Medicine 10/15/23
--- OUTSIDE RECORDS SUMMARY | 2024-01-20 09:16 | XMS_ITS | Encounter Summary ---
Author Organization [facility] Address [address] [place] [address]. [place] [address] Care Team Providers Care Permit Agent Name Role Phone Suman Hartman MD Primary Care Provider [phone] Reason for Visit * Auth/Cert Specialty Diagnoses / Procedures Referred By Enricoac t Referred To Contact Surgery Diagnoses Fracture of tibial plateau, closed, right, initial encounter Fracture of tibial plateau, closed, right, initial encounter [S82.141A] Procedures OH OPEN TX TIBIAL FRACTURE PROXIMAL UNICONDYLAR OH OPEN RX BILAT TIB PLAT FX Open reduction internal fixation tibial plateau fracture, right knee [facility] [address] [place] [address] Referral ID Status Reason Start Date Expiration Date Visits Re quested Visits Authorized [id number] 1 1 Encounter Details Date Type Department Care Team (Latest Contact Info) Description 10/15/2023 11:05 AM CDT - 10/15/2023 7:00 PM CDT Hospital Encounter [facility] PreOP/PostOP [address] [place] [id number] Francis Banks MD [facility] [address] [place] [address] Closed fracture of right tibial plateau, initial encounter (Primary Dx) Discharge Disposition: Home or Self Care 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 Tobacco Use Types Packs/Day Years [...] DR. FRANCIS B[facility]KS M.D. CLINIC PHONE NUMBER: [phone] [facility] * Attachments The following attachments cannot be sent through Care Everywhere. * (s) After Anesthesia (Sleep Medicine) (Japanese) documented in this encounter Medications at Time [...] All of this was verbalized via the studio producer and additional written instructions provided in the AVS. documented in this encounter Miscellaneous Notes * Op Note - Francis Banks MD - 10/15/2023 4:39 PM CDT Destin Schroeder October 15, 2023 [facility] PREOPERATIVE DIAGNOSIS: Right Schatzker II tibial plateau fracture POSTOPERATIVE DIAGNOSIS: Right Schatzker II tibial plateau fracture PROCEDURE: Open reduction and internal fixation of right Schatzker 2 tibial plateau fracture SURGEON: Santosh Banks MD. SPECIAL EDUCATION CASE MANAGER: Ximena Shepherd PA-C, who provided retraction, positioning and was crucial throughout the entire case. ANESTHESIA: Femoral nerve block followed by general anesthetic. ESTIMATED BLOOD LOSS: 10 cc. Implants: Implant Name Type Inv. Item Serial No. Room Clerk Lot No. LRB No. Used Action Drillable Bone Void Filler 5 cc Depuy [id number] Right 1 Implanted IMP WIRE GAMALIEL 1.3P090FH 292.71 - [id number] IMP WIRE GAMALIEL 1.1Z457UH 292.71 SYNTHES-STRATEC LOAD 8006 07 OCT 2023 Right 4 Used as a Supply PLATE PROXIMAL TIBIA 6H RT 3.4O800NT - [id number] Metallic Hardware/[place] PLATE PROXIMAL TIBIA 6H RT 3.6X401VN SYNTHES-STRATEC LOAD 8102 SEPTEMBER 30 2023 Right 1 Implanted IMP SCR SYN CORTEX 3.5X75MM SELF TAP SS 204.875 - [id number] Metallic Hardware/[place] IMP SCR SYN CORTEX 3.5X75MM SELF TAP SS 204.875 SYNTHES-STRATEC LOAD 8102 SEPTEMBER 30 2023 Right 1 Wasted IMP SCR SYN CORTEX 3.5X80MM SELF TAP SS 204.880 - [id number] Metallic Hardware/[place] IMP SCR SYN CORTEX 3.5X80MM SELF TAP SS 204.880 SYNTHES-STRATEC LOAD 8102 SEPTEMBER 30 2023 Right 1 Wasted SCREW STARDRIVE W/T15 3.5X32MM - [id number] Metallic Hardware/[place] SCREW STARDRIVE W/T15 [id number] LOAD 8102 SEPTEMBER 30 2023 Right 1 Implanted SCREW STARDRIVE W/T15 3.5X34MM - [id number] Metallic Hardware/[place] SCREW STARDRIVE W/T15 [id number] LOAD 8102 SEPTEMBER 30 2023 Right 1 Implanted SCREW STARDRIVE W/T15 3.5X50MM - [id number] Metallic Hardware/[place] SCREW STARDRIVE W/T15 [id number] LOAD 8102 SEPTEMBER 30 2023 Right 2 Implanted IMP SCR SYN ANG LOCKING 3.5X70MM 02.127.170 - [id number] Metallic Hardware/[place] IMP SCR SYN ANG LOCKING 3.5X70MM 02.127.170 SYNTHES-STRATEC LOAD 8102 SEPTEMBER 30 2023 Right 1 Implanted SCREW STARDRIVE W/T15 3.5X75MM - [id number] Metallic Hardware/[place] SCREW STARDRIVE W/T15 3.1J37JUZPMEFFY-[id number] LOAD 8102 SEPTEMBER 30 2023 Right 2 Implanted IMP SCR SYN ANG LOCKING 3.5X80MM 02.127.180 - [id number] Metallic Hardware/[place] IMP SCR SYN ANG LOCKING 3.5X80MM 02.127.180 SYNTHES-STRATEC LOAD 8102 SEPTEMBER 30 2023 Right 1 Implanted IMP SCR SYN CORTEX 3.5X34MM SELF TAP SS 204.834 - [id number] Metallic Hardware/[place] IMP SCR SYN CORTEX 3.5X34MM SELF TAP SS 204.834 SYNTHES-STRATEC LOAD 8006 07 OCT 2023 Right 1 Implanted IMP SCR SYN CORTEX 3.5X36MM SELF TAP SS 204.836 - [id number] Metallic Hardware/[place] IMP SCR SYN CORTEX 3.5X36MM SELF TAP SS 204.836 SYNTHES-STRATEC LOAD 8006 07 OCT 2023 Right 2 Wasted IMP SCR SYN CORTEX 3.5X38MM SELF TAP SS 204.838 - [id number] Metallic Hardware/[place] IMP SCR SYN CORTEX 3.5X38MM SELF TAP SS 204.838 SYNTHES-STRATEC LOAD 8006 07 OCT 2023 Right 1 Wasted IMP SCR SYN CORTEX 3.5X60MM SELF TAP SS 204.860 - [id number] Metallic Hardware/[place] IMP SCR SYN CORTEX 3.5X60MM SELF TAP [...] hearing impaired. Contact Rachel with Surgery Info: [phone] services notified of need for cellar worker on 10/15/23 at 11:00 AM EKG CARDIAC - HIM SCAN 10/14/2023 12:00 AM CDT documented in this encounter Results * XR Surgery TEODORA L/T 5 Min Fluoro w Stills (10/15/2023 3:42 PM CDT) Narrative [facility] - 10/15/2023 3:43 PM CDT This exam was marked as non-reportable because it will not be read by a radiologist or a [facility] non-radiologist provider. Francis Banks MD IMG DIAGNOSTI C IMAGING ORDERABLES [facility] * EKG Cardiac - HIM Scan (10/14/2023 12:00 AM CDT) 10/14/2023 Provider Outside ECG ORDERABLES documented in this encounter Visit Diagnoses Diagnosis Closed fracture of right tibial plateau, initial encounter- Primary documented in this encounter Administered Medications Inactive [...] $Given 10/15/2023 5:05 PM CDT 5 mg tranexamic acid (LYSTEDA) tablet 1,950 mg 1,950 [...] ($Given - Provi zachariah: Rachel Valentin APRN CRNA) celecoxib (celeBREX) capsule 400 mg (COMPLETED) 400 [...] Switch to gravity)1326 (Restarted - Provider: Rachel Vlaentin APRN CRNA)1457 ($New Bag - Provider: Rachel L Homero, SQL SERVER DBA FLATBED TRUCK DRIVER)1601 (Anesthesia Volume Adjustment - Provider: Bhanu Zendejas, SQL SERVER DBA FLATBED TRUCK DRIVER) PRN Medication Order 10/13/2023 10/14/2023 10/15/2023 acetaminophen [...] MD) documented in this encounter Care Teams Permit Agent Relationship Specialty Start Date End Date Suman Hartman MD [facility] [address] . [place] [address] PCP - General Family Medicine 10/15/23 documented as of this encounter
--- OUTSIDE RECORDS SUMMARY | 2024-01-20 09:17 | XMS_ITS | Encounter Summary ---
Author Organization [facility] Address [address] [place] [id number] Care Team Providers Care Recreational Aide Name Role Phone Elsewhere, Pcp Primary Care Provider Unavailabl e Reason for Visit * Outpatient (Routine) - Closed Specialty Diagnoses / Procedures Referred By Harsh dooley Referred To Contact Neurology Diagnoses Occipital Neuralgia Headache Unspecified Alber Powers M.D. [address] [place] [address] [facility] Referral ID Status Reason Start Date Expiration Date Visits Re quested Visits Authorized [id number] Closed 08/20/2023 02/18/2025 1 1 Encounter Details Date Type Department Care Team (Latest Contact Info) Description 11/15/2023 9:30 AM CDT Comprehensive Visit Department of Neurology in [place], [place] [address] [place] [address] Alex Clinton M.D. [address] [place] [address] Occipital Neuralgia; Headache Unspecified 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 Tobacco Use Types Packs/Day Years Used Date Smoking Tobacco: Never Smokeless Tobacco: Never MILI Utilities Answer Date Recorded In the past 12 months has e electric, gas, oil, or water company threatened to shut off services in your home? No 11/14/2023 Social Connection and Isolat ion Panel [NHANES] Answer Date Recorded In a typical week, how many times do you talk on the phone with family, friends, or neighbors? More than three times a week 01/20/2021 How often do you get togethe r with friends or relatives? Twice a week 01/20/2021 How often do you attend chur ch or yazdanism services? Never 01/20/2021 Do you belong to any clubs o r organizations such as confucianism groups, unions, fraternal or athletic groups, or [...] and heating? Not hard at all 01/20/2021 PHQ-2 Answer Date Recorded PHQ-2 Score 3 11/15/2023 [facility] [...] to strenuous exercise (like a brisk walk)? 4 days 11/14/2023 On average, how many minutes do you engage in exercise at this level? 70 min 11/14/2023 Hunger Vital Sign Answer Date Recorded Within the past 12 months, y ou worried that your food would run out before you got the money to buy more. Never true 11/14/19 24 Within the past 12 months, t he food you bought just didn't last and you didn't have money to get more. Never true 11/14/2023 PRAPARE - Transportation Answer Date Re corded In the past 12 months, has l ack of transportation kept you from medical appointments or from getting medications? No 02/2024 In the past 12 months, has l ack of transportation kept you from meetings, work, or from getting things needed for daily living? No 11/14/2023 Depression Answer Date Recor ded PHQ-9 Total Score (max 27) 7 11/14 Nutrition Answer Date Recorded On average, how many serving s of fruits and vegetables do you eat per day (serving size is equal to 1 cup or approximately the size of a tennis ball)? 0-2 11/14/2023 Dental Answer Date Recorded Dental: Regular Dentist Yes 06/18/19 Employment Answer Date Recorded Employment status N/A 11/14/2023 Housing Stability Answer Date Recorded What is your living situation today? I have a [employer] [facility] to live 11/14/2023 Education Answer Date Recorded What is the highest level of school you have completed or the highest degree you have received? 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, [employer], [employer]) 01/20/2021 Sex and Gender Information Value Date Recorded Sex Assigned at Male 11/14/2023 12:11 PM CDT Gender Identity Male 12/30/2020 8:23 AM CDT Sexual Orientation Straight 12/30/2020 8: 23 AM CDT documented as of this encounter Last Filed Vital Signs Vital Sign Reading Time Taken Comments Blood Pressure 121/80 11/15/2023 9:15 AM CDT Pulse 90 11/15/2023 9:15 AM CDT Temperature - - Respiratory Rate - - Oxygen Saturation - - Inhaled Oxygen Concentration - - Weight - - Height - - Body Mass Index - - documented in this encounter Patient Instructions * Patient Instructions* Alex Clinton M.D. - 11/15/2023 9:30 AM CDT Consider duloxetine (Cymbalta) starting at 20 mg once daily and increase by 20 mg each week up to 60 mg once daily over 3 weeks. Otherwise, consider the Cefaly device 20 minutes once daily as an adjunctive preventive treatment or on an as needed basis for 60 minutes at onset of headache. This can be purchased online or at the [facility] store without the need for prescription. documented in this encounter Consult Notes * Alex Clinton M.D. - 11/15/2023 9:30 AM CDT SUBJECTIVE REFERRING PROVIDER / PRIMARY CARE PROVIDER Alber Powers M.D. [address] [id number] CHIEF COMPLAINT / REASON FOR VISIT Mr. Schroeder is a 53 y.o.right handed male who was evaluated today for headaches. HISTORY OF PRESENT ILLNESS: He has had a 4-5 year history of headaches. He has 3 types of pain at this point, the most problematic pain is in the center of the forehead that is a burning pain in the forehead. This has been present since his last MRI of head and no significant change in the pain since the prior imaging. He hasleft sided headaches with trigeminal autonomic features (watering in the left eye), but that could last the entire day. He has rare moments of pain with 1-2 days in the past month. In the past month,he has had 28-30 headache days with 1-2 severe headache days per week. At times he will have tingling in the left shoulder and posterior up to ear. He has been taking frequent analgesics in the past month related to a right lower extremity injury, but before this was not overusing medication (1-2 times per week acetaminophen or ibuprofen). He takes sumatriptan 1-3 days per month. He has been irritable with nortriptyline and gabapentin so no longer taking. Patient Reported History Via Questionnaire His headaches began to occur about 7 year(s) ago.In describing the headaches today, he says they tend to start unilaterally and sometimes bilaterally and tend to start in the frontal region. The quality of the head pain is constant and pressure-like. He estimates the maximal intensity of his headaches to be 9 out of 10 on a scale in which 0 out of ten signifies no pain and 10 out of 10 signifies the worst pain imaginable. The headaches are sometimes associated with no migrainous symptoms and a sense of restlessness or agitation and tearing in an eye. He does not experience vertigo. Once established, his headaches are generally worsened by coughing/sneezing/bending over/straining and routinemental activity (e.g. concentrating, reading). Untreated or ineffectively treated headaches may persist for 2 day(s) and the most severe headaches may last up to 4 day(s). Patient reports that he experiences mixing up words or having difficulty expressing thoughts at thestart of headaches and it lasts for less than 5 minutes. He has noticed feeling worse physically or mentally than circumstances would dictate and increased neck pain or stiffness in the last day or two before a headache starts. At times during his headaches and on the same side as the head pain he experiences a sense of restlessness or agitation and tearing in an eye. The patient notes that too little sleep, changes in the weather/barometric pressure, alcohol, stress, fatigue, physical exertion and other Lifting, signing in ASL, working on iPad and laptop. tends to trigger his headaches. The patient rates the severity and disability of average headaches as 3 out of 3 in severity. Over the past 4 weeks he reports having a headache for 10 days out of 28. CURRENT HEADACHE TREATMENTS: The patient has used the following headache acute treatments in the last 4 weeks: acetaminophen (Tylenol) at a dose of 500 to 4000 mg daily for headaches only. Sumatriptan (Imitrex) at a dose of 100 to 200 mg 1 to 3 days per month for headaches only. The patient has used the following headache preventative treatments in the last 4 weeks: Galcanezumab (Emgality) at a dose of 240 mg for the first month followed by 120 mg monthly. Taken for 2 - 12 Months. Improvement noted? - Yes. Tolerated? - Yes. PRIOR HEADACHE TREATMENTS: The patient has tried the following acute (abortive) treatments in the past: ibuprofen (Advil, Motrin) at a dose of 400 to 2400 mg 3 to 6 days per week for both headaches and other reasons. Rizatriptan (Maxalt) at a dose of less than 10 mg less often than monthly for headaches only. The patient has tried following headache preventative treatments in the past: Propranolol (Inderal) at a dose of less than 80 mg. Taken for Less than 1 Month. Improvement noted?- No. Tolerated? - No. Nortriptyline (Pamelor, Aventyl HCL) at a dose of less than 40 mg. Taken for Less than 1 Month. Improvement noted? - No. Tolerated? - No. Gabapentin (Neurontin) at a dose of less than 900 mg. Taken for Days. Improvement noted? - No. Tolerated? - No. Magnesium at a dose of Less than 400 mg. Taken for Days. Improvement noted? - No. Tolerated? - Yes. REVIEW OF SYSTEMS Destin Schroeder's history was reviewed including allergies, current medications, review of systems, family history, medical and surgical history, social history, and problem list. Mr. Schroeder has given his verbal consent to participate in the [facility] Headache registry. OBJECTIVE PHYSICAL EXAMINATION General: Alert, oriented, and answering questions appropriately. Skin: No gross rashes or lesions present. Head: Normocephalic and atraumatic. Eyes: Sclera anicteric. Lungs: Normal respiratory excursions. Neuro: In summary, it was a normal neurologic examination with no focal deficits or pathologic reflexes. However, limited due to right lower extremity injury. For details of the neurologic examination, please see the neurologic examination form. DIAGNOSTICS Reviewed MRI of head from 01/20/21 was reviewed and normal other than non- specific subcortical T2 hyperintensities and a prominent sella turcica. 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 Schroeder is a 53 y.o. male who is presenting with headache. Findings are consistent with a mixedclinical presentation. The focal frontal pain would best be described as a nummular headache, but burning pain in my experience can be seen on rare occasion in migraine. MRI of head has not shown a secondary cause to headaches and headaches have not changed character since last imaging. The headaches have some trigeminal autonomic features, but the temporal profile is more consistent with migraine rather than a trigeminal autonomic cephalgia. RECOMMENDATIONS Consider duloxetine (Cymbalta) starting at 20 mg once daily and increase by 20 mg each week up to 60 mg once daily over 3 weeks. Otherwise, consider the Cefaly device 20 minutes once daily as an adjunctive preventive treatment or on an as needed basis for 60 minutes at onset of headache. This can be purchased online or at the [facility] store without the need for prescription. If the above is not effective, then would consider a trial of topiramate starting at 15 mg at nightand increase by 15 mg each week up to 100 mg at night over 6 weeks. Side effects can include difficulties thinking, weight loss, and a tingling sensation in the extremities. They should take the medication two hours before bedtime. This medication should be avoided with a prior history of kidney stones, glaucoma, or during . If the above is not effective, then would consider a trial of Botox following a standard chronic migraine (PREEMPT) protocol, performing one round, every 3 months, for a minimum of 3 rounds. There shannon cumulative benefit with each round of Botox. The rounds usually consist of anywhere from 25 to 33injections with 150-200 units of Botox. Typically, there are no side effects, but rarely a droopy eyelid, sore neck, or neck weakness can occur and these side effects often resolve after several weeks. If these side effects occur, let the proceduralist know and they can make adjustments to the protocol in order to prevent a recurrence. If the above is not effective, then would consider a trial of verapamil starting at 80 mg once daily and increase by 80 mg each week up to 80 mg three times daily over 3 weeks. Side effects can include postural dizziness and constipation, but is often well tolerated. For severe headache instead of sumatriptan could consider naratriptan 2.5 mg as needed, but limit the use to no more than 9 days a month (twice a week). On days of use, may repeat dose once 2-4 hourslater. Rescue therapy or nausea with severe headaches, take Compazine 10 mg at onset. May repeat dose onceafter 6 hours. Limit use to no more than 9 days a month (twice a week). At some point could consider bilateral supraorbital nerve blocks. Otherwise, indomethacin trial, atogepant, or rimegepant would be alternative considerations at somepoint. I have completed my evaluation and made my recommendations. The patient will follow up with their primary provider. We are a consultative practice and prescriptions should come from the patient's primary providers. Each of the above described preventive medications should be tried one at a time for at least threemonths at the highest tolerated dose before believing it has failed. A successful preventive will be one that decreases the headache frequency by at least 50%. Once a successful preventive is found, then would continue it for at least 12 months before considering a taper and stopping the medication. Mr. Schroeder was given written instructions for the dosing and titration and the common side effectsof these medications. I attempted to answer any questions that he had regarding his headaches and the proposed treatment. Patient education: The patient was ready to learn and had no apparent learning barriers. Their learning preferences includes listening. The diagnosis and treatment plans were explained and the patient expressed understanding of the content. I personally spent 56 minutes in care of the patient today. Time includes both non face to face andface to face patient care. Alex Clinton M.D. 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 [address] [place] [phone] 01/21/2024 2:00 PM CDT Comprehensive Visit Department of Otorhinolaryngology in [address] [phone] Priti Martínez APRN, C.N.P., D.N.P. [address] [place] [phone] documented as of this encounter Visit Diagnoses Diagnosis Occipital Neuralgia Headache Unspecified documented in this encounter Additional Health Concerns Assessment Noted Time PHQ-9 Depression Total Score: 7 11/15/19 24 9:00 AM CDT documented as of this encounter Care Teams Recreational Aide Relationship Specialty Start Date End Date Elsewhere, Pcp PCP - General Family Medicine 02/20/21 documented as of this encounter
--- OUTSIDE RECORDS SUMMARY | 2024-01-20 09:17 | XMS_ITS | Encounter Summary ---
Author Organization [facility] Address [address] [place] [address] Care Team Providers Care Information Clerk Name Role Phone Elsewhere, Pcp Primary Care Provider Unavailabl e Reason for Visit * Reason Comments Neuralgia Occipital - Nerve bl ock * Outpatient (Routine) - Closed Specialty Diagnoses / Procedures Referred By Contfawad t Referred To Contact Diagnoses Occipital Neuralgia Procedures Headache nerve block - Neurology Alber Powres M.D. [address], [place] [address] [facility] Region Referral ID Status Reason Start Date Expiration Date Visits Re quested Visits Authorized [id number] Closed 11/24/2023 11/23/2024 1 1 Encounter Details Date Type Department Care Team (Latest Contact Info) Description 12/24/2023 9:45 AM CDT Procedure visit Department of Neurology in [place], [place] [address] [place] [phone] Alber Powers M.D. [address], [place] [address] Occipital Neuralgia 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 Tobacco Use Types Packs/Day Years Used Date Smoking Tobacco: Never Smokeless Tobacco: Never C Utilities Answer Date Recorded In the past [...] any clubs o r organizations such as congregation groups, unions, fraternal or athletic groups, or [...] Answer Date Recorded PHQ-2 Score 3 11/15/2023 [employer] of Occupat ional Health - Occupational Stress [...] your living situation today? I have a [facility] place to live 11/14/2023 Education Answer Date Recorded What is the highest level of school you have completed or the highest degree you have received? 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, MUD JACK OPERATOR, JHONATAN) 01/20/2021 Sex and Gender Information Value Date Recorded Sex Assigned at Male 11/14/2023 12:11 PM CDT Gender Identity Male 12/30/2020 8:23 AM CDT Sexual Orientation Straight 12/30/2020 8: 23 AM CDT documented as of this encounter Procedure Notes * Alber Powers M.D. - 12/24/2023 9:45 AM CDTAssociated Order(s): Headache nerve block - Neurology Pre-Procedure Diagnose(s): Occipital Neuralgia Post-Procedure Diagnose(s): Occipital Neuralgia Headache nerve block - Neurology Performed by: Alber Powers M.D. Authorized by: Alber Powers M.D. Care team members present 1. Alber Pwoers M.D. 2. Va Perez, L.P.NCristel PROCEDURE SUMMARY Indications: occipital neuralgia, supraorbital neuralgia Pre procedure pain score: 4/10 Post procedure pain score: 0/10 Body area: head/face/neck Procedure location (head/face/neck nerve): Left greater occipital, Left lesser occipital and Left supraorbital Greater occipital position: seated Lesser occipital position: seated Supraorbital position: supine Needle size: 21 G Needle length: 2 in Nerve block type: single injection Nerve stimulator: no INJECTED MEDICATIONS: Injection(s), anesthetic agent(s) and/or steroid(s): Total volume of injectate (mL): 7 Total steroid in injectate (mg): 40 4 mL BUPivacaine 0.5 % (5 mg/mL) 2 mL lidocaine 10 mg/mL (1 %) 40 mg triamcinolone acetonide 40 mg/mL PROCEDURE DETAILS Greater occipital description: The patient was placed in the appropriate position with the neck in a flexed position. Prior to the procedure, the occipital protuberance was palpated, and a point one third from the midline on a line that connects the occipital protuberance to the mastoid process was identified as the anticipated location of the greater occipital nerve. Palpation was also performedto note the location of the occipital artery. The needle was introduced in a caudal to cephalad approach at a shallow angle taking care to gently contact periosteum. After negative aspiration the medication was introduced in a fan like manner. Following the injection, the needle was withdrawn. The patient tolerated the procedure well and there were no apparent complications. After an appropriate amount of observation, the patient was dismissed from the clinic in good condition under their own power. Lesser occipital description: The patient was placed in the appropriate position with the neck in aflexed position. Prior to the procedure, the occipital protuberance was palpated and a point two thirds from the midline on a line that connects the occipital protuberance to the mastoid process was identified as the anticipated location of the lesser occipital nerve. The needle was introduced in acaudal to cephalad approach at a shallow angle taking care to gently contact periosteum with the tip of the needle at a shallow depth. After negative aspiration the medication was introduced in a fanlike manner. Following the injection, the needle was withdrawn. The patient tolerated the procedure well and there were no apparent complications. After an appropriate amount of observation, the patient was dismissed from the clinic in good condition under their own power. Supraorbital description: The patient was appropriate position. Prior to the procedure, the supraorbital foramen was palpated and examined to determine the location of the nerve and optimal needle path. Thereafter, a needle was advanced near the nerve and after negative aspiration, the medication was injected. Following the injection, the needle was withdrawn. The patient tolerated the procedure well and there were no apparent complications. After an appropriate amount of observation, the patient was dismissed from the clinic in good condition under their own power. Complications: no apparent complications Additional Procedure Comments Patient did have mild nausea after occipital nerve blocks what sounds as though it is a common symptom he experiences during nerve block. CONSENT Consent obtained: written (Risks, benefits and [...] utilized as applicable for the procedure.: yes Skin preparation: alcohol SEDATION / ANESTHESIA Anesthesia method: nerve block Nerve block type: lidocaine, bupivacaine documented in this encounter Plan of Treatment Upcoming Encounters Date Type Department Care Team (Latest Contact Info) Description 01/20/2024 11:15 AM CDT Clinical Communication Virtual Review in [place], [place] [address] [place] [address] 01/21/2024 9:30 AM CDT Appointment Department of Radiology, [facility], in [place], [place] [address] [place] [phone] Priti Martínez, DIANDRA, C.N.P., D.N.P. [address] [place] [phone] 01/21/2024 2:00 PM CDT Comprehensive Visit Department of Otorhinolaryngology in [place], [place] 200 [place] [address] Priti Martínez, DIANDRA, C.N.P., D.N.P. 200 [place] [address] documented as of this encounter Procedures Procedure Name Priority Date/Time Associated Diagnosis Comments GA INJ ANES GREATER OCCIPITAL NRV Routine 12/24/2023 9:45 AM CDT Occipital Neuralgia documented in this encounter Results * GA INJ ANES GREATER OCCIPITAL NRV (12/24/2023 9:45 AM CDT) Narrative MMODAL - 12/24/2023 9:45 AM CDT Alber Powers M.D. ? 12/24/2023 10:18 AM Headache nerve block - Neurology Performed by: Alber Powers M.D. Authorized by: Alber Powers M.D. ?? Care team members present 1. Alber Powers M.D. 2. Va Perez, L.PNeil PROCEDURE SUMMARY Indications: occipital neuralgia, supraorbital neuralgia Pre procedure pain score: 4/10 Post procedure pain score: 0/10 ?? Body area: head/face/neck Procedure location (head/face/neck nerve): Left greater occipital, Left lesser occipital and Left supraorbital Greater occipital position: seated Lesser occipital position: seated Supraorbital position: supine Needle size: 21 G Needle length: 2 in Nerve block type: single injection Nerve stimulator: no INJECTED MEDICATIONS: Injection(s), anesthetic agent(s) and/or steroid(s): Total volume of injectate (mL): 7 Total steroid in injectate (mg): 40 ?? 4 mL BUPivacaine 0.5 % (5 mg/mL) 2 mL lidocaine 10 mg/mL (1 %) 40 mg triamcinolone acetonide 40 mg/mL PROCEDURE DETAILS Greater occipital description: [...] good condition under their own power. ?? Supraorbital description: The patient was appropriate position. ??Prior to the procedure, the supraorbital foramen was palpated and examined to determine the location of the nerve and optimal needle path. Thereafter, a needle was advanced near the nerve and after negative aspiration, the medication was injected. Following the injection, the needle was withdrawn. ??The patient tolerated the procedure well and there were no apparent complications. ??After an appropriate amount of observation, the patient was dismissed from the clinic in good condition under their own power. ? Complications: no apparent complications ?? Additional Procedure Comments Patient did have mild nausea after occipital nerve blocks what sounds as though it is a common symptom he experiences during nerve block. CONSENT Consent obtained: written (Risks, benefits and [...] Powers M.D. NEUROLOGY ORDERAB LES MMODAL NA documented in this encounter Visit Diagnoses Diagnosis Occipital Neuralgia documented in this encounter Administered Medications Inactive Administered Medications - up to 3 most recent administrations Medication Order MAR Action Action Date Dose Rate Site BUPivacaine 0.5 % (5 mg/mL) injection 4 mL (Marcaine) 4 mL, injection, One-Time Injection, Starting on Wed12/24/23 at 0945, For 1 dose Given 12/24/2023 9:45 AM CDT 4 mL lidocaine 10 mg/mL (1 %) injection 2 mL (Xylocaine) 2 mL, injection, One-Time Injection, Starting on Wed12/24/23 at 0945, For 1 dose Given 12/24/2023 9:45 AM CDT 2 mL triamcinolone acetonide injection 40 mg (Kenalog-40) 40 mg, injection, One-Time Injection, Starting on Wed12/24/23 at 0945, For 1 dose Given 12/24/2023 9:45 AM CDT 40 mg documented in this encounter Additional Health Concerns Assessment Noted Time PHQ-9 Depression Total Score: 7 11/15/19 24 9:00 AM CDT documented as of this encounter Care Teams Information Clerk Relationship Specialty Start Date End Date Elsewhere, Pcp PCP - General Family Medicine 02/20/21 documented as of this encounter
--- OUTSIDE RECORDS SUMMARY | 2024-01-20 09:17 | XMS_ITS | Referral Summary ---
Author Organization [facility] Address [address] [place] [phone] Care Team Providers Care Spray Maker Name Role Phone Elsewhere, Pcp Primary Care Provider Unavailabl e Source Comments Patient records contain information from all sites at [facility]. For routine questions regarding patient records, call [phone] during business hours, M-F 8:00 AM - 5:00 PM Central Time. Record requests for emergency care only can be directed to [phone] at any time.[facility] Encounters Date Type Department Care Team Description 12/24/2023 9:45 AM CDT Procedure visit Department of Neurology in [place], [place] [address] [place] [phone] Alber Powers M.D. Occipital Neuralgia 12/06/2023 Orders Only Department of Otorhinolaryngology in [place], [place] [address] [place] [address] Quita Cabrera R.N. Occipital Neuralgia (Primary Dx); Post Traumatic Headache Unspecified Not Intractable 12/06/2023 Clinical Communication Department of Otorhinolaryngology in [place], [place] [address] [place] [address] Prescheduling , Provider Order Request 12/06/2023 Clinical Communication Department of Otorhinolaryngology in [place], [place] [address] [place] [address] Prescheduling , Provider Communication 11/23/2023 Refill Department of Neurology in [place], [place] [address] [place] [address] Alber Powers M.D. Med Change Request 11/22/2023 Clinical Communication Department of Neurology in [place], [place] [address] [place] [address] Alber Powers M.D. Order Request (Nerve block/injection) 11/15/2023 9:30 AM CDT Comprehensive Visit Department of Neurology in [place], [place] [address] [place] [address] Alex Clinton M.D. Occipital Neuralgia; Headache Unspecified from Last 3 Months Allergies No known active allergies Medications Medication Sig Dispensed Refills Start Date End Date Status rizatriptan INTERNAL CONTROL ANALYST (MAXALT-INTERNAL CONTROL ANALYST) 5 mg disintegrating tablet Dissolve 5 mg in the mouth as needed. 04/04/2023 Active gabapentin (Neurontin) 100 mg capsule 1 cap every night for 3 days. If symptoms not improved, increase dose per med sched to maximum 3 cap 3 times daily. 270 capsule 12 08/20/2023 Active galcanezumab-gnlm (EMGALITY) 120 mg/mL injection Inject 1 mL (120 mg total) under the skin every 30 (thirty) days. One time 240 mg dose 1 mL 11 08/31/2023 Active Additional Information Patient not taking.Reported on 12/24/2023 DULoxetine (Cymbalta) [address] capsule 1 cap every night for 1 week, then increase dose every week by 1 cap daily per med sched to target dose of 60mg at night at which point switch to 60mg capsule 21 capsule 11/24/2023 Active DULoxetine (Cymbalta) [address] capsule If max dose reached with 20 mg cap per med sched, switch to 60 mg cap and take 1 cap every night. 30 capsule 12 11/24/2023 Active SUMAtriptan (Imitrex) 100 mg tablet Take 1 tablet (100 mg total) by mouth as needed for migraine. May repeat dose once in 2 hours if migraine unresolved. Do not exceed 200 mg in 24 hours. 9 tablet 5 12/17/2023 Active Active Problems Problem Noted Date Diagnosed Date Occipital Neuralgia 04/02/2023 Migraine Headache 04/03/2021 Post Traumatic Headache Unspecified Not Intracta ble 04/03/2021 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 Tobacco Use Types Packs/Day Years Used Date Smoking Tobacco: Never Smokeless Tobacco: Never Tobacco Cessation:Counseling Given: Not Answered [facility] Utilities Answer Date Recorded In the past 12 months has th e electric, gas, oil, or water company [...] often do you attend chur ch or jehovah's witness services? Never 01/20/2021 Do you belong to any clubs o r organizations such as uatsdin groups, unions, fraternal or athletic groups, or [...] Answer Date Recorded PHQ-2 Score 3 11/15/2023 [facility] of Occupat ional Health - Occupational Stress [...] your living situation today? I have a [facility] place to live 11/14/2023 Education Answer Date Recorded What is the highest level of school you have completed or the highest degree you have received? 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, FLEET SERVICE MANAGER, JHONATAN) 01/20/2021 Sex and Gender Information Value Date Recorded Sex Assigned at Male 11/14/2023 12:11 PM CDT Gender Identity Male 12/30/2020 8:23 AM CDT Sexual Orientation Straight 12/30/2020 8: 23 AM CDT Last Filed Vital Signs Vital Sign Reading Time Taken Comments Blood Pressure 121/80 11/15/2023 9:15 AM CDT Pulse 90 11/15/2023 9:15 AM CDT Temperature 36 ??C (96.8 ??F) 03/11/2021 [...] AM CDT Clinical Communication Virtual Review in [place], [place] 200 [place] [address] 01/21/2024 9:30 AM CDT Appointment Department of Radiology, [facility], in [address] [phone] Priti Martínez APRN, C.N.P., D.N.P. [address] [place] [phone] 01/21/2024 2:00 PM CDT Comprehensive Visit Department of Otorhinolaryngology in [place], [place] [address] [place] [phone] Priti Martínez APRN, C.N.P., D.N.P. [address] [place] [phone] Medical Devices Implanted Type Area Senior Product Integrity Engineer Device Identifier Shelf Expiration Date Model / Serial / Lot Hardware E.G. Pins/Screws/Ro ds-10/15/2023 Implanted:10/05 (Quantity not on file) Hardware e.g. pins/screws/ rods Right: Knee Description:Titanium screws and rods Procedures Procedure Name Priority Date/Time Associated Diagnosis Comments [place] INJ ANES GREATER OCCIPITAL NRV Routine 12/24/2023 9:45 AM CDT Occipital Neuralgia from Last 3 Months Results * [place] INJ ANES GREATER OCCIPITAL NRV (12/24/2023 9:45 AM CDT) Narrative [facility]ODAL - 12/24/2023 9:45 AM CDT Alber Powers M.D. ? 12/24/2023 10:18 AM Headache nerve block - Neurology Performed by: Alber Powers M.D. Authorized by: Alber Powers M.D. ?? Care team members present 1. Alber Powers M.D. 2. Va Perez L.P.N. PROCEDURE SUMMARY Indications: occipital neuralgia, supraorbital neuralgia [...] Powers M.D. NEUROLOGY ORDERAB LES [facility]AL NA from Last 3 Months Care Teams Spray Maker Relationship Specialty Start Date End Date Elsewhere, Pcp PCP - General Family Medicine 02/20/21
--- OUTSIDE RECORDS SUMMARY | 2024-01-20 09:17 | XMS_ITS ---
Author Organization [facility] Address [address] [place] [address] Care Team Providers Care Solar Sales Manager Name Role Phone Unavailable Unavailable Unavailable Surgery Details Not on file Complications Check Surgery Details section. Procedure Estimated Blood Loss Check Surgery Details section. Procedure Findings Check Surgery Details section. Procedure Specimens Taken Check Surgery Details section.
--- OUTSIDE RECORDS SUMMARY | 2024-01-20 09:17 | XMS_ITS | Encounter Summary ---
Author Organization [facility] Address [address] [place] [address] Care Team Providers Care Glass Carrier Name Role Phone Elsewhere, Pcp Primary Care Provider Unavailabl e Reason for Visit * Reason Onset Date Comments Communication 12/06/2023 Encounter Details Date Type Department Care Team (Latest Contact Info) Description 12/06/2023 Clinical Communication Department of Otorhinolaryngology in [place], [place] [address] [place] [address] Prescheduling, Provider Communication 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 Tobacco Use Types Packs/Day Years Used Date Smoking Tobacco: Never Smokeless Tobacco: Never [facility] Utilities Answer Date Recorded In the past [...] often do you attend chur ch or nondenominational services? Never 01/20/2021 Do you belong to any clubs o r organizations such as anabaptist groups, unions, fraternal or athletic groups, or [...] Answer Date Recorded PHQ-2 Score 3 11/15/2023 [facility] - Occupational Stress Questionnaire Answer Date Recorded [...] your living situation today? I have a [facility] place to live 11/14/2023 Education Answer Date Recorded What is the highest level of school you have completed or the highest degree you have received? 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, PARAFFIN PLANT OPERATOR, JHONATAN) 01/20/2021 Sex and Gender Information Value Date Recorded Sex Assigned at Male 11/14/2023 12:11 PM CDT Gender Identity Male 12/30/2020 8:23 AM CDT Sexual Orientation Straight 12/30/2020 8: 23 AM CDT documented as of this encounter Plan of Treatment Upcoming Encounters Date Type Department Care Team (Latest Contact Info) Description 01/20/2024 11:15 AM CDT Clinical Communication Virtual Review in [place], [place] [address] [place] [address] 01/21/2024 9:30 AM CDT Appointment Department of Radiology, [facility], in [place], [place] [address] [place] [phone] Priti Martínez APRN, C.N.P., D.N.P. [address] [place] [phone] 01/21/2024 2:00 PM CDT Comprehensive Visit Department of Otorhinolaryngology in [place], [place] [address] [place] [phone] Priti Martínez APRN, C.N.P., D.N.P. [address] [place] [phone] documented as of this encounter Visit Diagnoses Not on filedocumented in this encounter Additional Health Concerns Assessment Noted Time PHQ-9 Depression Total Score: 7 11/15/19 24 9:00 AM CDT documented as of this encounter Care Teams Glass Carrier Relationship Specialty Start Date End Date Elsewhere, Pcp PCP - General Family Medicine 02/20/21 documented as of this encounter
--- OUTSIDE RECORDS SUMMARY | 2024-01-20 09:17 | XMS_ITS | Encounter Summary ---
Author Organization [facility] Address [address] [place] [address] Care Team Providers Care Nut Feeder Name Role Phone Elsewhere, Pcp Primary Care Provider Unavailabl e Reason for Visit * Reason Onset Date Comments Order Request 11/22/2023 Nerve block/inje ction Encounter Details Date Type Department Care Team (Latest Contact Info) Description 11/22/2023 Clinical Communication Department of Neurology in [place], [place] [address] [phone] Alber Powers M.D. [address] [phone] Order Request (Nerve block/injection) 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 Tobacco Use Types Packs/Day Years Used Date Smoking Tobacco: Never Smokeless Tobacco: Never [employer] Utilities Answer Date Recorded In the past 12 months has [facility] Renewable Funding, gas, oil, or water [employer] threatened to shut off services in your [...] How often do you attend chur or cheondoism services? Never 01/20/2021 Do you belong to any clubs o r organizations such as gnosticism groups, unions, fraternal or athletic groups, or [...] Answer Date Recorded PHQ-2 Score 3 11/15/2023 [facility] - Occupational Stress Questionnaire Answer Date Recorded [...] your living situation today? I have a [facility] place to live 11/14/2023 Education Answer Date Recorded What is the highest level of school you have completed or the highest degree you have received? 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, CUPBOARD BUILDER, JHONATAN) 01/20/2021 Sex and Gender Information Value Date Recorded Sex Assigned at Male 11/14/2023 12:11 PM CDT Gender Identity Male 12/30/2020 8:23 AM CDT Sexual Orientation Straight 12/30/2020 8: 23 AM CDT documented as of this encounter Plan of Treatment Upcoming Encounters Date Type Department Care Team (Latest Contact Info) Description 01/20/2024 11:15 AM CDT Clinical Communication Virtual Review in [place], [place] 200 [place] [address] 01/21/2024 9:30 AM CDT Appointment Department of Radiology, [facility], in [place], [place] [address] [place] [phone] Priti Martínez APRN, C.N.P., D.N.P. [address] [place] [phone] 01/21/2024 2:00 PM CDT Comprehensive Visit Department of Otorhinolaryngology in [place], [place] [address] [place] [phone] Priti Martínez APRN, C.N.P., D.N.P. [address] [place] [phone] documented as of this encounter Visit Diagnoses Not on filedocumented in this encounter Additional Health Concerns Assessment Noted Time PHQ-9 Depression Total Score: 7 11/15/19 24 9:00 AM CDT documented as of this encounter Care Teams Nut Feeder Relationship Specialty Start Date End Date Elsewhere, Pcp PCP - General Family Medicine 02/20/21 documented as of this encounter
--- OUTSIDE RECORDS SUMMARY | 2024-01-20 09:17 | XMS_ITS | Continuity of Care Document ---
Author Organization [facility] Address [address] [place] [address] Care Team Providers Care Warehouse Traffic Supervisor Name Role Phone Elsewhere, Pcp Primary Care Provider Unavailabl e Source Comments Patient records contain information from all sites at [facility]. For routine questions regarding patient records, call [phone] during business hours, M-F 8:00 AM - 5:00 PM Central Time. Record requests for emergency care only can be directed to [phone] at any time.[facility] Encounters Date Type Department Care Team Description 12/24/2023 9:45 AM CDT Procedure visit Department of Neurology in [place], [place] [address] [place] [phone] Alber Powers M.D. Occipital Neuralgia 12/06/2023 Orders Only Department of Otorhinolaryngology in [place], [place] [address] [place] [address] Quita Cabrera R.N. Occipital Neuralgia (Primary Dx); Post Traumatic Headache Unspecified Not Intractable 12/06/2023 Clinical Communication Department of Otorhinolaryngology in [place], [place] [address] [place] [address] Prescheduling , Provider Order Request 12/06/2023 Clinical Communication Department of Otorhinolaryngology in [place], [place] [address] [place] [address] Prescheduling , Provider Communication 11/23/2023 Refill Department of Neurology in [place], [place] [address] [place] [phone] Alber Powers M.D. Med Change Request 11/22/2023 Clinical Communication Department of Neurology in [place], [place] [address] [address] Alber Powers M.D. Order Request (Nerve block/injection) 11/15/2023 9:30 AM CDT Comprehensive Visit Department of Neurology in [place], [place] [address] [place] [address] Alex Clinton M.D. Occipital Neuralgia; Headache Unspecified 10/07/2023 Clinical Communication Pharmacy Prior Auth [id number] Larry Jones RX Approval (Emgality 120MG/ML Solution Auto-Injector) 10/04/2023 Orders Only [facility] - [place] [address] [place] [address] Glenda Richards, C.Ph.T. 10/03/2023 Refill Department of Neurology in [place], [place] [address] [phone] Alber Powers M.D. Med Refill 09/17/2023 [facility] AND [address] [address] Palmer Quijano M.D. Sinusitis Chronic (Primary Dx) 08/31/2023 Clinical Communication Pharmacy Prior Auth [phone] Jenny Márquez 08/30/2023 Refill Department of Neurology in [place], [place] [address] [phone] Leticia De Los Santos M.D. Med Refill 08/30/2023 Refill Department of Neurology in [place], [place] [address] [phone] Alber Powers M.D. Med Refill 08/20/2023 3:15 PM CDT Office Visit Department of Neurology in [place], [place] [address] [place] [phone] Alber Powers M.D. Occipital Neuralgia (Primary Dx); Migraine Headache; Headache Unspecified 06/22/2023 9:15 AM PAYROLL SUPERVISOR Procedure visit Department of Neurology in [address] [address] Trinity Rivers D.O. Occipital Neuralgia 04/14/2023 9:15 AM PAYROLL SUPERVISOR Procedure visit Department of Neurology in [address] [address] Alber Pwoers M.D. Occipital Neuralgia 04/02/2023 2:30 PM CDT Comprehensive Visit Department of Neurology in [address] [phone] Alber Powers M.D. Migraine Headache (Primary Dx); Occipital Neuralgia 09/21/2022 Orders Only Department of Sleep Medicine in [place], [place] [address] [place] [phone] Eduardo Daley M.D., M.P.H. 05/20/2021 1:30 PM PAYROLL SUPERVISOR Procedure visit Department of Physical Medicine and Rehabilitation in [address] [phone] Mannie Ashford D.O. Pain Neck (Primary Dx); Myofascial Pain Syndrome; Myalgia 04/28/2021 Clinical Communication Department of Physical Medicine and Rehabilitation in [place], [place] [address] [place] [phone] Mannie Ashford D.O. 04/18/2021 Orders Only Department of Physical Medicine and Rehabilitation in [place], [place] [address] [place] [address] Dejon, Mannie A, D.O. Pain Neck (Primary Dx); Myofascial Pain Syndrome 04/15/2021 3:30 PM PAYROLL SUPERVISOR Comprehensive Visit Department of Physical Medicine and Rehabilitation in [address] [phone] Mannie Ashford D.O. Pain Neck (Primary Dx); Spondylosis Cervical Without Myelopathy; Myofascial Pain Syndrome 04/03/2021 2:30 PM CDT Office Visit Department of Neurology in [address] [phone] Eduardo Daley M.D., M.P.H. Migraine Headache (Primary Dx); Post Traumatic Headache Unspecified Not Intractable 03/11/2021 9:24 AM CDT - 03/11/2021 11:59 PM CDT Hospital Encounter Department of Pain Medicine in [address] [phone] Mannie Wild D.O. Spondylosis Cervical Without Myelopathy Discharge Disposition: Home or Self Care 03/06/2021 Clinical Communication Department of Pain Medicine in [address] [phone] Farheen Lopez, IT TRAINEE, M.S.N., R.N., [facility]- 02/24/2021 Clinical Communication Department of Pain Medicine in [address] [phone] Mannie Wild D.O. 02/20/2021 Orders Only Department of Pain Medicine in [address] [phone] Mannie Wild D.O. Spondylosis Cervical Without Myelopathy (Primary Dx) 02/20/2021 3:33 PM CDT - 02/20/2021 11:59 PM CDT Hospital Encounter Department of Pain Medicine in [address] [phone] Mannie Ashford D.O. Dauffenbach, Jason P, D.O. 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 01/23/2021 9:15 AM CDT Comprehensive Visit Department of Physical Medicine and Rehabilitation in [address] [phone] Mannie Ashford D.O. Pain Neck (Primary Dx); Spondylosis Cervical Without Myelopathy; Myofascial Pain Syndrome; Stenosis Spinal Cervical 01/20/2021 Clinical Communication Department of Sleep Medicine in [place], [place] [address] [place] [phone] Eduardo Daley M.D., M.P.H. 01/20/2021 7:29 AM CDT - 01/20/2021 11:59 PM CDT Hospital Encounter Department of Radiology in [address] [phone] Eduardo Daley M.D., M.P.H. Post Traumatic Headache Unspecified Not Intractable Discharge Disposition: Home or Self Care 01/20/2021 7:29 AM CDT - 01/20/2021 11:59 PM CDT Hospital Encounter Department of Radiology in [address] [phone] Eduardo Daley M.D., M.P.H. Post Traumatic Headache Unspecified Not Intractable Discharge Disposition: Home or Self Care 01/14/2021 9:04 AM CDT - 01/14/2021 11:59 PM CDT Hospital Encounter Department of Radiology in [address] [phone] Eduardo Daley M.D., M.P.H. Post Traumatic Headache Unspecified Not Intractable; Pain Neck Discharge Disposition: Home or Self Care 01/14/2021 8:00 AM CDT Comprehensive Visit Department of Neurology in [place], [place] [address] [facility] [place] [address] Eduardo Daley M.D., M.P.H. Pain Neck (Primary Dx); Post Traumatic Headache Unspecified Not Intractable Allergies No known active allergies Medications Medication Sig Dispensed Refills Start Date End Date Status rizatriptan COLORED LEATHER SETTER (MAXALT-COLORED LEATHER SETTER) 5 mg disintegrating tablet Dissolve 5 mg [...] 04/03/2021 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 Smoking Status as of 01/20/2024 Tobacco Use Types Packs/Day Years Used Date Smoking Tobacco: Never Assessed [facility] Utilities Answer Date Recorded In the past 12 months has [employer], gas, oil, or water company threatened to [...] often do you attend chur ch or jainism services? Never 01/20/2021 Do you belong to any clubs o r organizations such as christian groups, unions, fraternal or athletic groups, or [...] Answer Date Recorded PHQ-2 Score 3 11[facility]2023 [facility] Answer Date Recorded [...] your living situation today? I have a [facility] place to live 11/14/2023 Education Answer Date Recorded What is the highest level of school you have completed or the highest degree you have received? 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, SENIOR PAYROLL ADMINISTRATOR, JHONATAN) 01/20/2021 Sex and Gender Information Value [...] AM CDT Clinical Communication Virtual Review in [place], [place] 200 [place] [address] 01/21/2024 9:30 AM CDT Appointment Department of Radiology, [facility], in [place], [place] [address] [place] [phone] Priti Martínez APRN, C.N.P., D.N.P. [address] [place] [phone] 01/21/2024 2:00 PM CDT Comprehensive Visit Department of Otorhinolaryngology in [place], [place] [address] [place] [phone] Priti Martínez APRN, C.N.P., D.N.P. [address] [place] [phone] Medical Devices Implanted Type Area Private Secretary Device Identifier Shelf Expiration Date Model / Serial / Lot Hardware E.G. Pins/Screws/Ro ds-10/15/2023 Implanted:10/05 (Quantity not on file) Hardware e.g. pins/screws/ rods Right: Knee Description:Titanium screws and rods Procedures Procedure Name Priority Date/Time Associated Diagnosis Comments WI INJ ANES GREATER OCCIPITAL NRV Routine 12/24/2023 9:45 AM CDT Occipital Neuralgia PM NERVE BLOCK INJECTION Routine 06/22/2023 9:15 AM PAYROLL SUPERVISOR Occipital Neuralgia HEADACHE NERVE BLOCKS - NEUROLOGY Routine 04/14/2023 9:15 AM PAYROLL SUPERVISOR Occipital Neuralgia OUTSIDE CT NEURO Routine 10/06/2022 3:55 PM CDT WI INJ TRIGGER PNT >=3 MUS Routine 05/20/2021 2:04 PM PAYROLL SUPERVISOR Pain Neck Myofascial Pain Syndrome FL CERVICAL [...] RADIOLOGY IMAGE EXAM Routine 06/24/2010 2:27 PM PAYROLL SUPERVISOR Results * WI INJ ANES GREATER OCCIPITAL NRV (12/24/2023 9:45 AM CDT) Only the most recent of2 resultswithin the time period is included. Narrative MMODAL - 12/24/2023 9:45 AM CDT Alber Powers M.D. ? 12/24/2023 10:18 AM Headache nerve block - Neurology Performed by: Alber Powers M.D. Authorized by: Alber Powers M.D. ?? Care team members present 1. Alber Powers M.D. 2. Va Perez, L.P.NCristel PROCEDURE SUMMARY [...] M.D. NEUROLOGY ORDERAB LES MMODAL NA * Nerve Block Injection (06/22/2023 9:15 AM PAYROLL SUPERVISOR) Narrative Trinity Rivers D.O. - 06/22/2023 9:15 AM PAYROLL SUPERVISOR Trinity Rivers D.O. ? 06/22/2023 ??9:54 AM Nerve Block Injection Performed by: Trinity Rivers D.O. Authorized by: Trinity Rivers D.O. ?? Care team members present 1. Va Perez, LCristelPCristelNCristel PROCEDURE SUMMARY Indications: Occipital neuralgia/migraine ?? Body [...] Consent obtained: verbal Consent given by: Patient Lab Technician was present. PRE-PROCEDURE DETAILS Appropriate hand hygiene, gown, cap, mask, protective eyewear, sterile gloves, skin preparation, sterile drape, and strict aseptic technique were utilized as applicable for the procedure.: yes ?? Skin preparation: alcohol Trinity Rivers D.O. PROCEDURE/MINOR SURG ICAL ORDERABLES * CT sinus wo con-Outside CT Neuro (10/06/2022 3:55 PM CDT) Narrative IINY - 12/03/2023 9:40 AM CDT This order has been created and auto-finalized to support the import of outside images. If available, original interpretation can be found on the Media Tab in Chart Review, in Document Viewer, as an image in QREADS or as an Addendum. If a re-interpretation or overread is required please follow defined workflow.?? Provider Not In System IMG CT PROCEDURES IIMS NA * WI INJ TRIGGER PNT >=3 MUS (05/20/2021 2:04 PM PAYROLL SUPERVISOR) Narrative MMODAL - 05/20/2021 2:04 PM PAYROLL SUPERVISOR Mannie Ashford D.O. ? 05/21/2021 ??1:44 PM PMR Trigger Point Injection (Procedure Only) (Left cervical and left thoracic) Date/Time: 05/20/2021 2:04 PM Performed by: Mannie Ashford D.O. Authorized by: Mannie Ashford D.O. Care team members present 1. Rex Mcdonough, Viridiana, A.T.C. PROCEDURE SUMMARY Soft tissue site: left [...] the injection. ?? CONSENT Consent obtained: written (community health educator present) UNIVERSAL PROTOCOL All relevant documentation and [...] Region Laterality Modality Head, Brain, Neuroradiology RST LOS, Neuroradiology ARZ LOS, Neuroradiology FLA LOS N/A Magnetic Resonance 01/20/2021 9:25 AM CDT [...] are normal in signal. Procedure Note Israel Anrdew M.B., Castro Santos - 01/20/2021 EXAM: MR [...] enhancement or mass. Eduardo Daley M.D., M.P.H. [facility] MRI PROC EDURES * MR Cervical Spine without IV Contrast (01/20/2021 8:34 AM CDT) Anatomical Region Laterality Modality Spine, Cervical Spine, Neuro radiology RST [facility], Neuroradiology [facility], Neuroradiology [facility] N/A Magneti c Resonance 01/20/2021 8:37 AM [...] alignment is normal. Reversed lordosis centered at [id number], unchanged. Bone marrow signal is age-appropriate. The [...] bilateralneural foraminal narrowing. Eduardo Daley M.D., M.P.H. [facility] MRI PROC EDURES * DX Cervical Spine [...] apices are clear. Eduardo Daley M.D., M.P.H. [facility] DIAGNOST IC IMAGING PROCEDURES * ECHOCARDIOLOGY IMAGE EXAM (03/22/2015 9:22 AM CDT) Anatomical Region Laterality Modality Other 03/22/2015 9:22 AM CDT Addenda Addendum by ProviderEdgar M.D. on 03/22/2015 9:22 AM CDT ECHO^^^MCR Non-Radiology Image 03/22/2015 09:22:00 Historical Provider [facility] NON RAD IMAGING PROCEDURES * Echo Stress (03/22/2015 9:11 AM CDT) Anatomical Region Laterality Modality Echocardiography 03/22/2015 9:11 AM CDT Historical Provider CV ECHO PROCEDURES * XR Chest 2 Views (06/24/2010 2:27 PM PAYROLL SUPERVISOR) Anatomical Region Laterality Modality Other 06/24/2010 2:27 PM PAYROLL SUPERVISOR Historical Provider IMG NON RAD IMAGING PROCEDURES [...] 08/20/2023 Headache Unspecified 08/20/2023 Sinusitis Chronic 09/17/2023 Occipital Neuralgia 11/15/2023 Headache Unspecified 11/15/2023 Occipital Neuralgia 12/06/2023 Post Traumatic Headache Unspecified Not Intractable 12/06/2023 Occipital Neuralgia 12/24/2023 Care Teams Warehouse Traffic Supervisor Relationship Specialty Start Date End Date Elsewhere, Pcp PCP - General Family Medicine 02/20/21
--- OUTSIDE RECORDS SUMMARY | 2024-01-20 09:17 | XMS_ITS | Encounter Summary ---
Author Organization [facility] Address [address] [place] [address] Care Team Providers Care Hand Striper Name Role Phone Elsewhere, Pcp Primary Care Provider Unavailabl e Reason for Visit * Reason Comments Med Change Request Encounter Details Date Type Department Care Team (Late st Contact Info) Description 11/23/2023 Refill Department of Neurology in [place], [place] [address] [phone] Alber Powers M.D. [address] [phone] Med Change Request 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 Tobacco Use Types Packs/Day Years Used Date Smoking Tobacco: Never Smokeless Tobacco: Never [employer] Utilities Answer Date Recorded In the past 12 months has [facility] electric, gas, oil, or water company threatened [...] often do you attend chur ch or faith services? Never 01/20/2021 Do you belong to any clubs o r organizations such as jain groups, unions, fraternal or athletic groups, or [...] Answer Date Recorded PHQ-2 Score 3 11/15/2023 [facility] - Occupational [...] your living situation today? I have a [facility] place to live 11/14/2023 Education Answer Date Recorded What is the highest level of school you have completed or the highest degree you have received? 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, CUSTOMS DIRECTOR, JHONATAN) 01/20/2021 Sex and Gender Information Value Date Recorded Sex Assigned at Male 11/14/2023 12:11 PM CDT Gender Identity Male 12/30/2020 8:23 AM CDT Sexual Orientation Straight 12/30/2020 8: 23 AM CDT documented as of this encounter Miscellaneous Notes * Telephone Encounter - Kyara Torres - 11/24/2023 9:21 AM CDT Provider Review: Medication Change Request Primary Provider: ELSEWHERE, PCP Pharmacy comment: Alternative Requested:PTS INSURANCE WILL PAY FOR A MAX OF 2 CAPS DAILY, PLEASE SEND IN A SEPARATE RX FOR THE 60MG DOSE. Pharmacy (include location): [facility] documented in this encounter Plan of Treatment Upcoming Encounters Date Type Department Care Team (Latest Contact Info) Description 01/20/2024 11:15 AM CDT Clinical Communication Virtual Review in [place], [place] [address] [place] [address] 01/21/2024 9:30 AM CDT Appointment Department of Radiology, [facility], in [place], [place] [address] [place] [phone] Priti Martínez, DIANDRA, C.N.P., D.N.P. [address] [place] [phone] 01/21/2024 2:00 PM CDT Comprehensive Visit Department of Otorhinolaryngology in [place], [place] [address] [place] [address] Priti Martínez, DIANDRA, C.N.P., D.N.P. [address] [place] [address] documented as of this encounter Visit Diagnoses Not on filedocumented in this encounter Additional Health Concerns Assessment Noted Time PHQ-9 Depression Total Score: 7 11/15/19 24 9:00 AM CDT documented as of this encounter Care Teams Hand Striper Relationship Specialty Start Date End Date Elsewhere, Pcp PCP - General Family Medicine 02/20/21 documented as of this encounter
--- OUTSIDE RECORDS SUMMARY | 2024-01-20 09:17 | XMS_ITS | Encounter Summary ---
Author Organization [facility] Address [address] [place] [address] Care Team Providers Care Family Health Nurse Practitioner Name Role Phone Elsewhere, Pcp Primary Care Provider Unavailabl e Reason for Visit * Reason Onset Date Comments Order Request 12/06/2023 Encounter Details Date Type Department Care Team (Latest Contact Info) Description 12/06/2023 Clinical Communication Department of Otorhinolaryngology in [place], [place] [address] [place] [address] Prescheduling, Provider Order Request 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 Tobacco Use Types Packs/Day Years Used Date Smoking Tobacco: Never Smokeless Tobacco: Never [facility] Utilities Answer Date Recorded In the past [...] often do you attend chur ch or sabianism services? Never 01/20/2021 Do you belong to any clubs o r organizations such as sabianism groups, unions, fraternal or athletic groups, or [...] 3 11/15/2023 [facility] - Occupational Stress Questionnaire Answer Date Recorded [...] your living situation today? I have a [facility] place to live 11/14/2023 Education Answer Date Recorded What is the highest level of school you have completed or the highest degree you have received? 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, COUPON AND BOND COLLECTION CLERK, JHONATAN) 01/20/2021 Sex and Gender Information Value Date Recorded Sex Assigned at Male 11/14/2023 12:11 PM CDT Gender Identity Male 12/30/2020 8:23 AM CDT Sexual Orientation Straight 12/30/2020 8: 23 AM CDT documented as of this encounter Plan of Treatment Upcoming Encounters Date Type Department Care Team (Latest Contact Info) Description 01/20/2024 11:15 AM CDT Clinical Communication Virtual Review in [place], [place] 200 [place] [address] 01/21/2024 9:30 AM CDT Appointment Department of Radiology, [facility], in [place], [place] [address] [place] [phone] Priti Martínez APRN, C.N.P., D.N.P. [address] [place] [phone] 01/21/2024 2:00 PM CDT Comprehensive Visit Department of Otorhinolaryngology in [place], [place] [address] [place] [phone] Priti Martínez APRN, C.N.P., D.N.P. [address] [place] [phone] documented as of this encounter Visit Diagnoses Not on filedocumented in this encounter Additional Health Concerns Assessment Noted Time PHQ-9 Depression Total Score: 7 11/15/19 24 9:00 AM CDT documented as of this encounter Care Teams Family Health Nurse Practitioner Relationship Specialty Start Date End Date Elsewhere, Pcp PCP - General Family Medicine 02/20/21 documented as of this encounter
--- OUTSIDE RECORDS SUMMARY | 2024-01-20 09:17 | XMS_ITS | Encounter Summary ---
Author Organization [facility] Address [address] [place] [address] Care Team Providers Care Supervisor Statement Clerks Name Role Phone Elsewhere, Pcp Primary Care Provider Unavailabl e Encounter Details Date Type Department Care Team (Late st Contact Info) Description 10/04/2023 Orders Only [facility] [address] [place] [phone] Glenda Richards, C.Ph.T. [address] [place] [address] 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 Tobacco Use Types Packs/Day Years [...] often do you attend chur ch or yazidi services? Never 01/20/2021 Do you belong to any clubs o r organizations such as anglican groups, unions, fraternal or athletic groups, or [...] and heating? Not hard at all 01/20/2021 [facility] - Occupational Stress Questionnaire Answer Date [...] 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, SURVEILLANCE DUAL RATE OFFICER, JHONATAN) 01/20/2021 Sex and Gender Information Value Date Recorded Sex Assigned at Male 11/14/2023 12:11 PM CDT Gender Identity Male 12/30/2020 8:23 AM CDT Sexual Orientation Straight 12/30/2020 8: 23 AM CDT documented as of this encounter Plan of Treatment Upcoming Encounters Date Type Department Care Team (Latest Contact Info) Description 01/20/2024 11:15 AM CDT Clinical Communication Virtual Review in [place], [place] 200 [place] [address] 01/21/2024 9:30 AM CDT Appointment Department of Radiology, [facility], in [place], [place] [address] [place] [phone] Priti Martínez APRN, C.N.P., D.N.P. [address] [place] [phone] 01/21/2024 2:00 PM CDT Comprehensive Visit Department of Otorhinolaryngology in [place], [place] [address] [place] [phone] Priti Martínez APRN, C.N.P., D.N.P. [address] [place] [phone] documented as of this encounter Visit Diagnoses Not on filedocumented in this encounter Care Teams Supervisor Statement Clerks Relationship Specialty Start Date End Date Elsewhere, Pcp PCP - General Family Medicine 02/20/21 documented as of this encounter
--- OUTSIDE RECORDS SUMMARY | 2024-01-20 09:17 | XMS_ITS | Encounter Summary ---
Author Organization [facility] Address [address] [place] [address] Care Team Providers Care Red Leader Name Role Phone Elsewhere, Pcp Primary Care Provider Unavailabl e Reason for Visit * Reason Onset Date Comments RX Approval 10/07/2023 Emgality 120MG/M L Solution Auto-Injector Encounter Details Date Type Department Care Team (Latest Contact Info) Description 10/07/2023 Clinical Communication Pharmacy Prior Auth RO [phone] Larry Jones RX Approval (Emgality 120MG/ML Solution [...] often do you attend chur ch or judaism services? Never 01/20/2021 Do you belong to [...] 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, KNOBBER, JHONATAN) 01/20/2021 Sex and Gender Information Value [...] have any follow-up questions, please send an FlightStats in Zeto message to P [facility] EPA POOL. documented in this encounter Plan of Treatment Upcoming Encounters Date Type Department Care Team (Latest Contact Info) Description 01/20/2024 11:15 AM CDT Clinical Communication Virtual Review in [place], [place] 200 [place] [phone] 01/21/2024 9:30 AM CDT Appointment Department of Radiology, [facility], in [place], [place] [address] [place] [phone] Priti Martínez, DIANDRA, C.N.P., D.N.P. [address] [place] [phone] 01/21/2024 2:00 PM CDT Comprehensive Visit Department of Otorhinolaryngology in [place], [place] [address] [place] [phone] Priti Martínez, DIANDRA, C.N.P., D.N.P. [address] [place] [phone] documented as of this encounter Visit Diagnoses Not on filedocumented in this encounter Care Teams Red Leader Relationship Specialty Start Date End Date Elsewhere, Pcp PCP - General Family Medicine 02/20/21 documented as of this encounter
--- OUTSIDE RECORDS SUMMARY | 2024-01-20 09:17 | XMS_ITS | Encounter Summary ---
Author Organization [facility] Address [address] [place] [address] Care Team Providers Care Residence Director Name Role Phone Elsewhere, Pcp Primary Care Provider Unavailabl e Reason for Referral * MRI/CAT/PET Scan (Routine) - Authorized Specialty Diagnoses / Procedures Referred By Harsh dooley Referred To Contact Radiology Diagnoses Occipital Neuralgia Post Traumatic Headache Unspecified Not Intractable Procedures CT Sinuses without IV Contrast Priti Martínez APRN, C.N.P., D.N.P. [address] [place] [phone] [facility] Referral ID Status Reason Start Date Expiration Date V isits Requested Visits Authorized [id number] Authorized 12/06/2023 12/05/2024 1 1 Encounter Details Date Type Department Care Team (Latest Contact Info) Description 12/06/2023 Orders Only Department of Otorhinolaryngology in [place], [place] [address] [place] [phone] Quita Cabrera R.N. [address] [place] [phone] Occipital Neuralgia (Primary Dx); Post Traumatic Headache Unspecified Not Intractable 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 Tobacco Use Types Packs/Day Years Used Date Smoking Tobacco: Never Smokeless Tobacco: Never [facility] Utilities Answer Date Recorded In the [...] any clubs o r organizations such as evangelical groups, unions, fraternal or athletic groups, or [...] Answer Date Recorded PHQ-2 Score 3 11/15/2023 [facility] - Occupational Stress Questionnaire Answer Date [...] your living situation today? I have a [facility] place to live 11/14/2023 Education Answer Date Recorded What is the highest level of school you have completed or the highest degree you have received? 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, JHONATAN) 01/20/2021 Sex and Gender Information Value Date Recorded Sex Assigned at Male 11/14/2023 12:11 PM CDT Gender Identity Male 12/30/2020 8:23 AM CDT Sexual Orientation Straight 12/30/2020 8: 23 AM CDT documented as of this encounter Plan of Treatment Upcoming Encounters Date Type Department Care Team (Latest Contact Info) Description 01/20/2024 11:15 AM CDT Clinical Communication Virtual Review in [place], [place] [address] [place] [phone] 01/21/2024 9:30 AM CDT Appointment Department of Radiology, [facility], in [place], [place] [address] [place] [phone] Priti Martínez, TOP LIFT CUTTER, C.N.P., D.N.P. [address] [place] [phone] 01/21/2024 2:00 PM CDT Comprehensive Visit Department of Otorhinolaryngology in [place], [place] [address] [place] [phone] Priti Martínez APRN, C.N.P., D.N.P. [address] [place] [phone] Scheduled Orders Name Type Priority Associated Diagnoses Orde r Schedule CT Sinuses without IV Contrast Imaging RAD - Routine (most inpatients and all outpatients) Occipital Neuralgia Post Traumatic Headache Unspecified Not Intractable Expected: 12/15/2023, Expires: 03/07/2025 documented as of this encounter Visit Diagnoses Diagnosis Occipital Neuralgia- Primary Post Traumatic Headache Unspecified Not Intractable documented in this encounter Additional Health Concerns Assessment Noted Time PHQ-9 Depression Total Score: 7 11/15/19 24 9:00 AM CDT documented as of this encounter Care Teams Residence Director Relationship Specialty Start Date End Date Elsewhere, Pcp PCP - General Family Medicine 02/20/21 documented as of this encounter
== END 2024-01-20 09:14 | disposition home or self-care (01) ==
PROVIDERS: PCP Family Medicine; Visit Provider Family Medicine
DX: Z00.00 Encounter for general adult medical examination without abnormal findings (principal); E78.5 Hyperlipidemia, unspecified; R79.89 Other specified abnormal findings of blood chemistry; Z12.5 Encounter for screening for malignant neoplasm of prostate
CPT/HCPCS: 80048; 80061; 80076; G0103

== ENCOUNTER 2024-11-13 08:02 | Outpatient (CLI) | payer BC, SELFPAY ==
--- NOTE | 2024-11-13 09:22 | P.ANES_ITS ---
Anesthesia Charges Start Date/Time Anesthesia Start Date: 11/13/24 Anesthesia Start Time: 08:54 Stop Date/Time Anesthesia Stop Date: 11/13/24 Anesthesia Stop Time: 09:17 Coding CPT Codes CPT Codes: ROJELIO LWR INTST NDPA NOS - 33374 ([id number]) P1 - NORMAL HEALTHY PATIENT, QK - ELA TEACHER 2-4 CNCRNT ANES PROC, QX - CONTRACTS INTERN SVC W/ MED DIRECTION
--- NOTE | 2024-11-13 09:22 | W.ANESCHARGE ---
Anesthesia Charges Start Date/Time Anesthesia Start Date: 11/13/24 Anesthesia Start Time: 08:54 Stop Date/Time Anesthesia Stop Date: 11/13/24 Anesthesia Stop Time: 09:17 Coding CPT Codes CPT Codes: ROJELIO LWR INTST NDVA NOS - 62254 ([id number]) P1 - NORMAL HEALTHY PATIENT, QK - QUALITY LEAD 2-4 CNCRNT ANES PROC, QX - MANGLE TENDER SVC W/ MED DIRECTION
--- NOTE | 2024-11-13 09:34 | P.ANES_ITS ---
Anesthesia Charges Start Date/Time Anesthesia Start Date: 11/13/24 Anesthesia Start Time: 08:54 Stop Date/Time Anesthesia Stop Date: 11/13/24 Anesthesia Stop Time: 09:17 Coding CPT Codes CPT Codes: ROJELIO LWR INTST NDNE NOS - 62500 ([id number]) P1 - NORMAL HEALTHY PATIENT, QK - MAXILLOFACIAL PROSTHETICS DENTIST 2-4 CNCRNT ANES PROC, QX - CRIMINAL PSYCHOLOGIST SVC W/ MED DIRECTION
--- NOTE | 2024-11-13 09:34 | W.ANESCHARGE ---
Anesthesia Charges Start Date/Time Anesthesia Start Date: 11/13/24 Anesthesia Start Time: 08:54 Stop Date/Time Anesthesia Stop Date: 11/13/24 Anesthesia Stop Time: 09:17 Coding CPT Codes CPT Codes: ROJELIO LWR INTST NDOK NOS - 69266 ([id number]) P1 - NORMAL HEALTHY PATIENT, QK - ASSISTANT PUBLIC DEFENDER 2-4 CNCRNT ANES PROC, QX - GARBAGE DEPOT WORKER SVC W/ MED DIRECTION
== END 2024-11-13 08:03 | disposition home or self-care (01) ==
LOC: OP CLINIC 08:03
PROVIDERS: PCP Family Medicine; Visit Provider Surgery
DX: Z12.11 Encounter for screening for malignant neoplasm of colon (principal); Z80.0 Family history of malignant neoplasm of digestive organs; D12.3 Benign neoplasm of transverse colon
CPT/HCPCS: 00811; 00812; 45385; 88305; J2704

== ENCOUNTER 2025-01-05 07:28 | Emergency (ER) | payer BC, SELFPAY ==
--- OUTSIDE RECORDS SUMMARY | 2024-12-19 14:00 | XMS_ITS | Encounter Summary ---
Author Organization [facility] Address [address] [place] [phone] Care Team Providers Care Warehouse Worker Name Role Phone Elsewhere, Pcp Primary Care Provider Unavailabl e Reason for Referral * Outpatient (Routine) - Closed Specialty Diagnoses / Procedures Referred By Harsh dooley Referred To Contact Diagnoses Occipital Neuralgia Headache Unspecified Procedures PM Nerve Block injection AK INJ ANES [facility] NRV Trinity Rivers D.O. 200 [place] [phone] Phone: tel: fax: [facility] Region Referral ID Status Reason Start Date Expiration Date Visits Re quested Visits Authorized [id number] Closed 12/19/2024 03/21/2026 1 1 Reason for Visit * Appointment Request (Routine) - Pending Review Specialty Diagnoses / Procedures Referred By Harsh dooley Referred To Contact Neurology Referral ID Status Reason Start Date Expiration Date V isits Requested Visits Authorized [id number] Pending Review 09/05/2024 12/06/2025 1 1 Encounter Details Date Type Department Care Team (Latest Contact Info) Description 12/19/2024 2:00 PM CDT Procedure visit Department of Neurology in [place], [place] [address] [place] [phone] Trinity Rivers D.O. 200 [place] [phone] Occipital Neuralgia (Primary Dx); Headache Unspecified 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 Tobacco Use Types Packs/Day Years Used Date Smoking Tobacco: Never Smokeless Tobacco: Never [facility] Utilities Answer Date Recorded In the past 12 months has th e electric, gas, oil, or water company threatened to shut off services in your home? No 11/14/2023 Hunger Vital Sign Answer Date Recorded [...] PHQ-9 Total Score (max 27) 7 11/14 Housing Stability Answer Date Recorded What is your living situation today? I have a [facility] place to live 11/14/2023 Education Answer Date Recorded What is the highest level of school you have completed or the highest degree you have received? 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, BROKERAGE COORDINATOR, JHONATAN) 01/20/2021 Sex and Gender Information Value Date Recorded Sex Assigned at Male 11/14/2023 12:11 PM CDT Legal Sex Male 4:54 PM IT APPLICATION ARCHITECT Gender Identity Male 12/30/2020 8:23 AM CDT Sexual Orientation Straight 12/30/2020 8: 23 AM CDT documented as of this encounter Procedure Notes * Trinity Rivers D.O. - 12/19/2024 2:00 PM CDTAssociated Order(s): PM Nerve Block injection Post-Procedure Diagnose(s): Occipital Neuralgia; Headache Unspecified PM Nerve Block injection Performed by: Trinity Rivers D.O. Authorized by: Trinity Rivers D.O. Care team members present 1. Va Perez L.P.N. PROCEDURE SUMMARY Body area: head/face/neck Procedure location (head/face/neck nerve): Left greater occipital, Left lesser occipital and Left supraorbital Greater occipital position: seated Lesser occipital position: seated Supraorbital position: seated Needle size: 25 G Needle length: other INJECTED MEDICATIONS: Injection(s), anesthetic agent(s) and/or steroid(s): The injected medication(s) listed was divided equally between the identified injection location(s) Total volume of injectate (mL): 4.5 cc: 0.5 cc supraorbital left, 3 cc greater occipital left, 1 cclesser occipital left PROCEDURE DETAILS Greater occipital description: The patient [...] needle was withdrawn. The patient tolerated the procedurewell and there were no apparent complications. After [...] their own power. Complications: no apparent complications CONSENT Consent obtained: verbal Consent given by: Patient PRE-PROCEDURE DETAILS Appropriate hand hygiene, gown, cap, mask, protective eyewear, sterile gloves, skin preparation, sterile drape, and strict aseptic technique were utilized as applicable for the procedure.: yes Skin preparation: alcohol documented in this encounter Plan of Treatment Upcoming Encounters Date Type Department Care Team (Late st Contact Info) Description 03/14/2025 3:15 PM CDT Procedure visit Department of Neurology in [place], [place] [address] [phone] Alber Powers M.D. [address] [phone] documented as of this encounter Procedures Procedure Name Priority Date/Time Associated Diagnosis Comments PM NERVE BLOCK INJECTION Routine 12/19/2024 2:00 PM CDT Occipital Neuralgia Headache Unspecified documented in this encounter Results * PM Nerve Block injection (12/19/2024 2:00 PM CDT) Narrative Trinity Rivers D.O. - 12/19/2024 2:00 PM CDT Trinity Rivers D.O. 12/19/2024 2:33 PM PM Nerve Block injection Performed by: Trinity Rivers D.O. Authorized by: Trinity Rivers D.O. Care team members present 1. Va Perez, L.P.N. PROCEDURE SUMMARY Body area: head/face/neck Procedure location (head/face/neck nerve): Left greater occipital, Left lesser occipital and Left supraorbital Greater occipital position: seated Lesser occipital position: seated Supraorbital position: seated Needle size: 25 G Needle length: other INJECTED MEDICATIONS: Injection(s), anesthetic agent(s) and/or steroid(s): The injected medication(s) listed was divided equally between the identified injection location(s) Total volume of injectate (mL): 4.5 cc: 0.5 cc supraorbital left, 3 cc greater occipital left, 1 cc lesser occipital left PROCEDURE DETAILS Greater occipital description: The patient was placed in the appropriate position with the neck in a flexed position. Prior to the procedure, the occipital protuberance was palpated, and a point one third from the midline on a line that connects the occipital protuberance to the mastoid process was identified as the anticipated location of the greater occipital nerve. Palpation was also performed to note the location [...] their own power. Complications: no apparent complications CONSENT Consent obtained: verbal Consent given by: Patient PRE-PROCEDURE DETAILS Appropriate hand hygiene, gown, cap, mask, protective eyewear, sterile gloves, skin preparation, sterile drape, and strict aseptic technique were utilized as applicable for the procedure.: yes Skin preparation: alcohol us Trinity Rivers D.O. PROCEDURE/MINOR SURGICAL ORD ERABLES Final Result documented in this encounter Visit Diagnoses Diagnosis Occipital Neuralgia- Primary Headache Unspecified documented in this encounter Additional Health Concerns Assessment Noted Time PHQ-9 Depression Total Score: 7 11/15/19 24 9:00 AM CDT documented as of this encounter Care Teams Warehouse Worker Relationship Specialty Start Date End Date Elsewhere, Pcp PCP - General Family Medicine 02/20/21 documented as of this encounter
[2025-01-05] VITALS (16 sets, daily range): BP systolic 138–153; BP diastolic 87–104; PULSE 82–108; RESP 16–18; TEMP 37.3; O2SAT 94–100; BMI 23.1
--- OUTSIDE RECORDS SUMMARY | 2025-01-05 07:30 | XMS_ITS | Continuity of Care Document ---
Author Organization [facility] Address [address] [place] [address] Care Team Providers Care Bander Hand Name Role Phone Elsewhere, Pcp Primary Care Provider Unavailabl e Source Comments Patient records contain information from all sites at [facility]. For routine questions regarding patient records, call [phone] during business hours, M-F 8:00 AM - 5:00 PM Central Time. Record requests for emergency care only can be directed to [phone] at any time.[facility] Encounters Date Type Department Care Team Description 12/19/2024 2:00 PM CDT Procedure visit Department of Neurology in [place], [place] [address] [place] [phone] Trinity Rivers D.O. Occipital Neuralgia (Primary Dx); Headache Unspecified 11/10/2024 Refill Department of Neurology in [place], [place] [address] [place] [phone] Leticia De Los Santos M.D., M.B.A. Med Refill 10/03/2024 Orders Only Department of Otorhinolaryngology in [place], [place] [address] [place] [address] Miriam Dey R.N. Sinusitis Chronic (Primary Dx); Headache Sinus 09/05/2024 3:30 PM CDT Procedure visit Department of Neurology in [place], [place] [address] [place] [phone] Trinity Rivers D.O. Occipital Neuralgia 08/30/2024 Refill Department of Neurology in [address] [phone] Alber Powers M.D. Med Refill 08/25/2024 Clinical Communication Department of Neurology in [address] [phone] Alber Powers M.D. 06/01/2024 Refill Department of Neurology in [address] [phone] Alber Powers M.D. Med Refill 04/25/2024 3:30 PM [employer] SAL[employer] BEAUTY ADVISOR Procedure visit Department of Neurology in [address] [phone] Trinity Rivers D.O. Occipital Neuralgia 04/13/2024 Clinical Communication Department of Neurology in [address] [phone] Alber Powers M.D. 01/21/2024 9:10 PM CDT Ancillary Procedure Department of Otorhinolaryngology 01/21/2024 9:08 AM CDT - 01/21/2024 11:59 PM CDT Hospital Encounter Department of Radiology, [facility], in [place], [place] [address] [place] [address] Priti Martínez APRN, C.N.P., D.N.P. Occipital Neuralgia; Post Traumatic Headache Unspecified Not Intractable Discharge Disposition: Home or Self Care 01/21/2024 2:00 PM CDT Comprehensive Visit Department of Otorhinolaryngology in [place], [place] [address] [place] [address] Priti Martínez APRN, C.N.P., D.N.P. Headache Sinus (Primary Dx); Sinusitis Chronic 12/24/2023 9:45 AM CDT Procedure visit Department of Neurology in [place], [place] [address] [phone] Alber Powers M.D. Occipital Neuralgia 12/06/2023 Orders Only Department of Otorhinolaryngology in [place], [place] [address] [place] [address] Quita Cabrera R.N. Occipital Neuralgia (Primary Dx); Post Traumatic Headache Unspecified Not Intractable 12/06/2023 Clinical Communication Department of Otorhinolaryngology in [place], [place] [address] [place] [address] Prescheduling , Provider Order Request 12/06/2023 Clinical Communication Department of Otorhinolaryngology in [place], [place] [address] [place] [address] Prescheduling , Provider Communication 11/23/2023 Refill Department of Neurology in [place], [place] [address] [phone] Alber Powers M.D. Med Change Request 11/22/2023 Clinical Communication Department of Neurology in [place], [place] [address] [phone] Alber Powers M.D. Order Request (Nerve block/injection) 11/15/2023 9:30 AM CDT Comprehensive Visit Department of Neurology in [place], [place] [address] [place] [address] Alex Clinton M.D. Occipital Neuralgia; Headache Unspecified 10/07/2023 Clinical Communication Pharmacy Prior Auth RO [id number] Larry Jones RX Approval (Emgality 120MG/ML Solution Auto-Injector) 10/04/2023 Orders Only [facility] [place] [address] [place] [id number] Glenda Richards 10/03/2023 Refill Department of Neurology in [place], [place] [address] [place] [phone] Alber Powers M.D. Med Refill 09/17/2023 [facility] AND [address] [address] Palmer Quijano M.D. Sinusitis Chronic (Primary Dx) 08/31/2023 Clinical Communication Pharmacy [facility] [phone] Jenny Márquez 08/30/2023 Refill Department of Neurology in [place], [place] [address] [place] [phone] Leticia De Los Santos M.D., M.B.A. Med Refill 08/30/2023 Refill Department of Neurology in [place], [place] [address] [place] [phone] Alber Powers M.D. Med Refill 08/20/2023 3:15 PM CDT Office Visit Department of Neurology in [place], [place] [address] [place] [phone] Alber Powers M.D. Occipital Neuralgia (Primary Dx); Migraine Headache; Headache Unspecified 06/22/2023 9:15 AM [employer] SAL[employer] BEAUTY ADVISOR Procedure visit Department of Neurology in [place], [place] [address] [place] [phone] Trinity Rivers D.O. Occipital Neuralgia 04/14/2023 9:15 AM [employer] SAL[employer] BEAUTY ADVISOR Procedure visit Department of Neurology in [place], [place] [address] [place] [phone] Alber Powers M.D. Occipital Neuralgia 04/02/2023 2:30 PM CDT Comprehensive Visit Department of Neurology in [place], [place] [address] [place] [phone] Alber Powers M.D. Migraine Headache (Primary Dx); Occipital Neuralgia 09/21/2022 Orders Only Department of Sleep Medicine in [place], [place] [address] [place] [address] Eduardo Daley M.D., M.P.H. 05/20/2021 1:30 PM [employer] SAL[employer] BEAUTY ADVISOR Procedure visit Department of Physical Medicine and Rehabilitation in [address] [phone] Mannie Ashford D.O. Pain Neck (Primary Dx); Myofascial Pain Syndrome; Myalgia 04/28/2021 Clinical Communication Department of Physical Medicine and Rehabilitation in [address] [phone] aMnnie Ashford D.O. 04/18/2021 Orders Only Department of Physical Medicine and Rehabilitation in [place], [place] [address] [place] [address] Mannie Ashford D.O. Pain Neck (Primary Dx); Myofascial Pain Syndrome 04/15/2021 3:30 PM [employer] SAL[employer] BEAUTY ADVISOR Comprehensive Visit Department of Physical Medicine and Rehabilitation in [address] [phone] Mannie Ashford D.O. Pain Neck (Primary Dx); Spondylosis Cervical Without Myelopathy; Myofascial Pain Syndrome 04/03/2021 2:30 PM CDT Office Visit Department of Neurology in [address] [phone] Eduardo Daley M.D., M.P.H. Migraine Headache (Primary Dx); Post Traumatic Headache Unspecified Not Intractable 03/11/2021 9:24 AM CDT - 03/11/2021 11:59 PM CDT Hospital Encounter Department of Pain Medicine in [place], [place] [address] [place] [address] Mannie Wild D.O. Spondylosis Cervical Without Myelopathy Discharge Disposition: Home or Self Care 03/06/2021 Clinical Communication Department of Pain Medicine in [address] [phone] Farheen Lopez, PHILOSOPHY FACULTY MEMBER, M.S.N., R.N., PHILOSOPHY FACULTY MEMBER- 02/24/2021 Clinical Communication Department of Pain Medicine in [address] [phone] Mannie Wild D.OCristel 02/20/2021 Orders Only Department of Pain Medicine in [address] [phone] Mannie Wild D.OCristel Spondylosis Cervical Without Myelopathy (Primary Dx) 02/20/2021 3:33 PM CDT - 02/20/2021 11:59 PM CDT Hospital Encounter Department of Pain Medicine in [address] [phone] Mannie Ashford D.O. Dauffenbach, Jason P, D.O. Pain Neck; Spondylosis Cervical Without Myelopathy Discharge Disposition: Home or Self Care 01/29/2021 Clinical Communication Department of Pain Medicine in [address] [phone] Mannie Wild D.O. 01/23/2021 9:15 AM CDT Comprehensive Visit Department of Physical Medicine and Rehabilitation in [address] [phone] Mannie Ashford D.O. Pain Neck (Primary Dx); Spondylosis Cervical Without Myelopathy; Myofascial Pain Syndrome; Stenosis Spinal Cervical 01/20/2021 Clinical Communication Department of Sleep Medicine in [place], [place] [address] [place] [phone] Eduardo Daley M.D., M.P.H. 01/20/2021 7:29 AM CDT - 01/20/2021 11:59 PM CDT Hospital Encounter Department of Radiology in [place], [place] [address], [place] [address] Eduardo Daley M.D., M.P.H. Post Traumatic Headache Unspecified Not Intractable Discharge Disposition: Home or Self Care 01/20/2021 7:29 AM CDT - 01/20/2021 11:59 PM CDT Hospital Encounter Department of Radiology in [place], [place] [address], [place] [address] Eduardo Daley M.D., M.P.H. Post Traumatic Headache Unspecified Not Intractable Discharge Disposition: Home or Self Care 01/14/2021 9:04 AM CDT - 01/14/2021 11:59 PM CDT Hospital Encounter Department of Radiology in [place], [place] [address] [place] [address] Eduardo Daley M.D., M.P.H. Post Traumatic Headache Unspecified Not Intractable; Pain Neck Discharge Disposition: Home or Self Care 01/14/2021 8:00 AM CDT Comprehensive Visit Department of Neurology in [place], [place] [address] [place] [address] Eduardo Daley M.D., M.P.H. Pain Neck (Primary Dx); Post Traumatic Headache Unspecified Not Intractable Allergies No known active allergies Medications rizatriptan FUR OPERATOR (MAXALT-FUR OPERATOR) 5 mg disintegrating tablet Dissolve 5 mg in the mouth as needed. 3 Active gabapentin (Neurontin) 100 mg capsule 1 cap every night for 3 days. If symptoms not improved, increase dose per med sched to maximum 3 cap 3 times daily. 270 capsule 12 4 Active DULoxetine (Cymbalta) [address] capsule 1 cap every night for 1 week, then increase dose every week by 1 cap daily per med sched to target dose of 60mg at night at which point switch to 60mg capsule 21 capsule 4 Active DULoxetine (Cymbalta) [address] capsule If max dose reached with 20 mg cap per med sched, switch to 60 mg cap and take 1 cap every night. 30 capsule 12 4 Active budesonide (Pulmicort) 0.5 mg/2 mL nebulizer solution Mix 1 ampule in sinus irrigation bottle and irrigate twice daily. 360 mL 3 4 Active galcanezumab-gnlm (Emgality Pen) 120 mg/mL injection Inject 1 mL (120 mg total) under the skin every 30 (thirty) days. 1 mL 11 5 Active SUMAtriptan (Imitrex) 100 mg tablet TAKE 1TAB BY MOUTH NEEDED FOR MIGRAINE.MAY REPEAT DOSE ONCE IN 2HRS IF MIGRAINE UNRESOLVED.DO NOT EXCEED 2TABS/24HRS 9 tablet 5 5 Active cyclobenzaprine (FlexeriL) 10 mg tablet Take 10 mg by mouth at bedtime as needed for muscle spasms. 5 Active Active Problems Problem Noted Date Diagnosed Date Occipital Neuralgia 04/02/2023 Migraine Headache 04/03/2021 Post Traumatic Headache Unspecified Not Intracta ble 04/03/2021 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 Smoking Status as of 01/05/2025 Tobacco Use Types Packs/Day Years Used Date Smoking Tobacco: Never Assessed [facility] Utilities Answer Date Recorded In the past 12 months has th e [employer], gas, oil, or water [employer] threatened to shut off services in your [...] your living situation today? I have a [facility] place to live 11/14/2023 Education Answer Date Recorded What is the highest level of school you have completed or the highest degree you have received? 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 [address], [place] [phone] Medical Devices Implanted Type Area Business Case Analyst Device Identifier Shelf Expiration Date Model / Serial / Lot Hardware E.G. Pins/Screws/Ro ds-10/15/2023 Implanted:10/05 (Quantity not on file) Hardware e.g. pins/screws/ rods Right: Knee Description:Titanium screws and rods Procedures Procedure Name Priority Date/Time Associated Diagnosis Comments PM NERVE BLOCK INJECTION Routine 025 2:00 PM CDT Occipital Neuralgia Headache Unspecified PM NERVE BLOCK INJECTION Routine 025 3:30 PM CDT Occipital Neuralgia HEADACHE NERVE BLOCKS - NEUROLOGY Routine 04/25/2024 3:30 PM [employer] SAL[employer] BEAUTY ADVISOR Occipital Neuralgia OTORHINOLARYNGOLOGY IMAGE EXAM Routine 01/21/2024 9:[address] SINUSES WITHOUT IV CONTRAST RAD - Routine (most inpatients and all outpatients) 01/21/2024 9:41 AM CDT Occipital Neuralgia Post Traumatic Headache Unspecified Not Intractable MD INJ ANES GREATER OCCIPITAL NRV Routine 12/24/2023 9:45 AM CDT Occipital Neuralgia PM NERVE BLOCK INJECTION Routine 024 9:15 AM [employer] SAL[employer] BEAUTY ADVISOR Occipital Neuralgia HEADACHE NERVE BLOCKS - NEUROLOGY Routine 04/14/2023 9:15 AM [employer] SAL[employer] BEAUTY ADVISOR Occipital Neuralgia OUTSIDE CT NEURO Routine 10/06/2022 3:55 PM CDT MD INJ TRIGGER PNT >=3 MUS Routine 05/20/2021 2:04 PM [employer] SAL[employer] BEAUTY ADVISOR Pain Neck Myofascial Pain Syndrome FL CERVICAL [...] Intractable Pain Neck ECHOCARDIOLOGY IMAGE EXAM Routine 2014 9:22 AM CDT ECHO STRESS Routine 03/22/2015 9:11 AM CDT RADIOLOGY IMAGE EXAM Routine 06/24/2010 2:27 PM [employer] SAL[employer] BEAUTY ADVISOR Results * PM Nerve Block injection (12/19/2024 2:00 PM CDT) Only the most recent of3 resultswithin the time period is included. Narrative Trinity Rivers D.O. - 12/19/2024 2:00 PM CDT Trinity Rivers D.O. 12/19/2024 2:33 PM PM Nerve Block injection Performed by: Trinity Rivers D.O. Authorized by: Trinity Rivers D.O. Care team members present 1. Va Perez, LCristelPCristelN. PROCEDURE SUMMARY Body area: head/face/neck Procedure location [...] D.O. PROCEDURE/MINOR SURGICAL ORD ERABLES Final Result * Headache nerve block - Neurology (04/25/2024 3:30 PM [employer] SALES BEAUTY ADVISOR) Only the most recent of3 resultswithin the time period is included. Narrative [facility] - 04/25/2024 3:30 PM [employer] SALES BEAUTY ADVISOR Trinity Rivers D.O. 04/25/2024 4:13 PM Headache nerve block - Neurology Performed by: Trinity Rivers D.O. Authorized by: Alber Powers M.D. Care team members present 1. Va Perez L.P.N. PROCEDURE SUMMARY Indications: occipital neuralgia, supraorbital neuralgia Body area: head/face/neck Procedure location (head/face/neck nerve): Left greater occipital, Left lesser occipital and Left supraorbital Greater occipital position: seated Lesser occipital position: seated Supraorbital position: supine Needle size: 25 G Needle length: 1 in Nerve block type: single injection Nerve stimulator: no INJECTED MEDICATIONS: Injection(s), anesthetic agent(s) and/or steroid(s): Total volume of injectate (mL): 4.5 mL (4 mL greater and lesser occipital nerve left, 0.5 mL supraorbital nerve left) Total steroid in injectate (mg): 20 mg 4 mL BUPivacaine 0.5 % (5 mg/mL) 20 mg methyl prednisolone 40 mg/mL PROCEDURE DETAILS Greater occipital description: [...] Complications: no apparent complications CONSENT Consent obtained: written (Risks, benefits and [...] the procedure.: yes Skin preparation: alcohol us Alber Powers M.D. NEUROLOGY ORDERABLES Laura l Result MM[facility] NA * Nasal Endoscopy-Otorhinolaryngology Image Exam (01/21/2024 9:10 PM CDT) Narrative IIIL - 01/24/2024 7:11 AM CDT This order has been created and auto-finalized to support the import of images acquired without order. The clinical documentation to support these images can be found on the encounter that produced images. us Provider Not In System IMG NON RAD IMAGING PROCE DURES Final Result [facility] NA * CT Sinuses without IV Contrast (01/21/2024 9:41 AM CDT) Anatomical Region Laterality Modality Head, Neuroradiology RST LOS , Neuroradiology ARZ LOS, Neuroradiology FLA LOS N/A Computed Tomography, Compute d Tomography Impressions 01/21/2024 10:40 AM CDT 1. Mild pansinus mucosal thickening, slightly improved when compared to the prior study. No frothy secretions, air-fluid levels or destructive bony lesions Narrative 01/21/2024 10:40 AM CDT EXAM: CT SINUSES WITHOUT IV CONTRAST COMPARISON: Outside CT sinus October 06, 2022 FINDINGS: Mild pansinus mucosal thickening is redemonstrated and appears slightly improved when compared to the prior study. No frothy secretions, air-fluid levels or destructive bony lesions. Frontal recesses, maxillary ostia/infundibula and sphenoidal recesses are clear. Accessory maxillary ostia bilaterally. No significant deviation of the nasal septum. Normal-appearing olfactory fossa. The external auditory and middle ear cavities appear normal. Well-aerated mastoid air cells. Soft tissues of the orbits are unremarkable. No midline shift in the visualized brain. Small lucency about the root of the right maxillary lateral incisor (tooth #7) as before. Procedure Note Damon Bateman M.B.B.S., M.MED. - 01/21/2024 EXAM: CT SINUSES WITHOUT IV CONTRAST COMPARISON: Outside CT sinus October 06, 2022 FINDINGS: Mild pansinus mucosal thickening is redemonstrated and appearsslightly improved when compared to the prior study. No frothy secretions,air-fluid levels or destructive bony lesions. Frontal recesses, maxillaryostia/infundibula and sphenoidal recesses are clear. Accessory maxillary ostia bilaterally. No significantdeviation of the nasal septum. Normal-appearing olfactory fossa. The external auditory and middle ear cavities appear normal. Well-aeratedmastoid air cells. Soft tissues of the orbits are unremarkable. No midlineshift in the visualized brain. Small lucency about the root of the rightmaxillary lateral incisor (tooth #7) as before. IMPRESSION: 1. Mild pansinus mucosal thickening, slightly improved when compared tothe prior study. No frothy secretions, air-fluid levels or destructivebony lesions Priti Martínez APRN, C.N.P., D.N.P. IMG CT PROCED URES Final Result * CT sinus wo con-Outside CT Neuro (10/06/2022 3:55 PM CDT) Narrative [facility] - 12/03/2023 9:40 AM CDT This order has been created and auto-finalized to support the import of outside images. If available, original interpretation can be found on the Media Tab in Chart Review, in Document Viewer, as an image in QREADS or as an Addendum. If a re-interpretation or overread is required please follow defined workflow. Provider Not In System IMG CT PROCEDURES Final R esult [facility] NA * MD INJ TRIGGER PNT >=3 MUS (05/20/2021 2:04 PM [employer] SALES BEAUTY ADVISOR) Narrative MMODAL - 05/20/2021 2:04 PM [employer] SALES BEAUTY ADVISOR Mannie Ashford D.O. 05/21/2021 1:44 PM PMR Trigger Point Injection (Procedure Only) [...] location(s) Total volume of injectate (mL): 6 2 mL lidocaine 10 mg/mL (1 %) 2 mL ropivacaine (PF) 2 mg/mL (0.2 %) 10 mg triamcinolone acetonide 40 mg/mL Other medication: 1 mL of 8.4% sodium bicarbonate PROCEDURE DETAILS [...] in good condition under their own power. Thoracic procedure description: The patient was placed in the appropriate position. Prior to the procedure, the thoracic region was [...] their own power. Complications: no apparent complications ADDITIONAL PROCEDURE COMMENTS PPE use information for [...] applicable for the procedure.: hand hygiene performed Skin preparation: Chlorhexidine SEDATION / ANESTHESIA Anesthesia method: topical application Topical application type: aerosol cold spray Mannie Ashford D.O. PROCEDURE/MINOR SURGICAL ORDERA BLES Edited Result - Final [facility] NA * Cervical Spine Medial Branch Nerve (03/11/2021 10:48 AM CDT) Only the most recent of2 resultswithin the time period is included. Narrative Mannie Wild D.O. - 03/11/2021 10:21 AM CDT Mannie Wild D.O. 03/11/2021 10:40 AM Cervical Spine Medial Branch [...] MEDICATIONS Total volume of injectate (mL): 4 4 mL bupivacaine 0.5 % (5 mg/mL) 2 mL iohexoL 300 mg iodine/mL Other medication: Glycopyrrolate 0.2 mg PROCEDURE DETAILS Medial branch block - cervical: Using fluoroscopy, [...] and report the results of the injection. CONSENT Consent obtained: written (interpreter for the deaf present) UNIVERSAL PROTOCOL All relevant documentation and [...] a procedural pause. PRE-PROCEDURE DETAILS Procedure purpose: Diagnostic Appropriate hand hygiene, gown, cap, mask, protective eyewear, sterile gloves, skin preparation, sterile drape, and strict aseptic technique were utilized as applicable for the procedure: yes Site preparation: Chlorhexidine SEDATION / ANESTHESIA Anesthesia method: none ATTESTATION STATEMENT The teaching physician rule is not applicable. us Mannie P Dauffenbach D.O. FLUORO GUIDED PAIN PROC EDURES Final Result * MR Brain without and with IV Contrast (01/20/2021 8:55 AM CDT) Anatomical Region Laterality Modality Head, Brain, Neuroradiology RST LOS, Neuroradiology ARZ [facility], Neuroradiology FLA [facility] N/A Magnetic Resonance 01/20/2021 9:25 [...] acute infarct, focal parenchymal enhancement or mass. us Eduardo Daley M.D., M.P.H. IMG MRI PROCEDURES F inal Result * MR Cervical Spine without IV Contrast (01/20/2021 8:34 AM CDT) Anatomical Region Laterality Modality Spine, Cervical Spine, Neuro radiology RST LOS, Neuroradiology ARZ LOS, Neuroradiology FLA LOS N/A Magneti c Resonance 01/20/2021 8:37 AM CDT Impressions 01/20/2021 8:55 AM CDT 1. No acute fracture or traumatic listhesis. 2. Unchanged mild reversal of cervical lordosis. 3. Mild cervical spondylosis mostly at C6-C7 level with mild bilateral neural foraminal narrowing. Narrative 01/20/2021 8:55 AM CDT EXAM: MR CERVICAL SPINE WITHOUT IV CONTRAST COMPARISON: Cervical spine radiograph, 01/14/2021 FINDINGS: Craniocervical alignment is normal. Reversed lordosis centered at C4 level, unchanged. Bone marrow signal is age-appropriate. The spinal cord is normal in signal. Skull base-C2: The foraminal magnum is patent. C2-3: Central canal and neural foramina are patent. C3-4: Small disc bulge with mild effacement of the ventral thecal sac. No significant neural foraminal narrowing. C4-5: Small disc bulge with mild-moderate effacement of the ventral thecal sac. No significant neural foraminal narrowing. C5-6: Central canal and neural foramina are patent. C6-7: Mild uncovertebral and facet hypertrophy with mild bilateral neural foraminal narrowing. The central canal is patent. C7-T1: Central canal and neural foramina are patent. The paraspinal soft tissues are unremarkable. Procedure Note Israel Andrew M.B., ChEran, MTisha. - 01/20/2021 EXAM: MR CERVICAL SPINE WITHOUT IV CONTRAST COMPARISON: Cervical spine radiograph, 01/14/2021 FINDINGS: Craniocervical alignment is normal. Reversed lordosis centered at [id number], unchanged. Bone marrow signal is age-appropriate. The [...] C6-C7 level with mild bilateralneural foraminal narrowing. us Eduardo Daley M.D., M.P.H. IMG MRI PROCEDURES F inal Result * DX Cervical Spine 2-3 Views (01/14/2021 [...] soft tissues arenormal. Lung apices are clear. us Eduardo Daley M.D., M.P.H. IMG DIAGNOSTIC IMAGI NG PROCEDURES Final Result * ECHOCARDIOLOGY IMAGE EXAM (03/22/2015 9:22 AM CDT) Anatomical Region Laterality Modality Other 03/22/2015 9:22 AM CDT Addenda Addendum by ProviderEdgar M.D. on 03/22/2015 9:22 AM CDT ECHO^^^MCR Non-Radiology Image 03/22/2015 09:22:00 [facility] Provider IMG NON RAD IMAGING PROCEDUR ES Final Result * Echo Stress (03/22/2015 9:11 AM CDT) Anatomical Region Laterality Modality Echocardiography 03/22/2015 9:11 AM CDT [facility] Provider CV ECHO PROCEDURES Final Res ult * XR Chest 2 Views (06/24/2010 2:27 PM [employer] SAL[employer] BEAUTY ADVISOR) Anatomical Region Laterality Modality Other 06/24/2010 2:27 PM [employer] SALES BEAUTY ADVISOR [facility] Provider IMG NON RAD IMAGING PROCEDUR ES Final Result Visit Diagnoses Diagnosis Start Date Post Traumatic [...] Unspecified Not Intractable 12/06/2023 Occipital Neuralgia 12/24/2023 Occipital Neuralgia 01/21/2024 Post Traumatic Headache Unspecified Not Intractable 01/21/2024 Sinusitis Chronic 01/21/2024 Headache Sinus 01/21/2024 Occipital Neuralgia 04/13/2024 Occipital Neuralgia 04/25/2024 Occipital Neuralgia 08/25/2024 Occipital Neuralgia 09/05/2024 Sinusitis Chronic 10/03/2024 Headache Sinus 10/03/2024 Occipital Neuralgia 12/19/2024 Headache Unspecified 12/19/2024 Care Teams Bander Hand Relationship Specialty Start Date End Date Elsewhere, Pcp PCP - General Family Medicine 02/20/21
--- OUTSIDE RECORDS SUMMARY | 2025-01-05 07:30 | XMS_ITS | Clinical Summary ---
Author Organization [facility] Address [address] [place] [id number] Care Team Providers Care Copy Operator Name Role Phone Suman Hartman MD Primary Care Provider Allergies No known active allergies Medications galcanezumab-gnlm (EMGALITY) 120 MG/ML injection Inject 120 mg Subcutaneous every 28 days Active oxyCODONE (ROXICODONE) 5 MG tablet Take 5 mg by mouth every 6 hours as needed for severe pain Active ibuprofen (ADVIL/MOTRIN) 200 MG capsule Take 200 mg by mouth every 4 hours as needed for fever Active acetaminophen (TYLENOL) 325 MG tabletIndications :Closed fracture of right tibial plateau, initial encounter Take 2 tablets (650 mg) by mouth every 4 hours as needed for mild pain 50 tablet 10/15/19 24 Active oxyCODONE (ROXICODONE) 5 MG tabletIndications :Closed fracture of right tibial plateau, initial encounter Take 1-2 tablets (5-10 mg) by mouth every 4 hours as needed for moderate to severe pain 26 tablet 10/15/19 24 Active senna-docusate (SENOKOT-S/ANDREZ LACE) 8.6-50 MG tabletIndications :Closed fracture of right tibial plateau, initial encounter Take 1-2 tablets by mouth 2 times daily 30 tablet 10/15/19 24 Active rivaroxaban ANTICOAGULANT (XARELTO) 10 MG TABS tabletIndications :Closed fracture of right tibial plateau, initial encounter Take 1 tablet (10 mg) by mouth daily (with dinner) for 30 days 30 tablet 10/15/19 24 Active Active Problems No known active problems [...] Recorded Sex Assigned at Not on file 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 Gender Identity Not on file Sexual Orientation Not on file Last Filed Vital Signs Vital Sign Reading Time Taken Comments Blood Pressure 148/99 10/15/2023 6:47 PM CDT Pulse 99 10/15/2023 6:47 PM CDT Temperature 36.8 C (98.2 F) 10/15/2023 6:47 PM CDT Respiratory Rate 18 10/15/2023 6:47 PM CDT [...] OF HM ORDERS 1970 CT COLONOGRAPHY 1970 DIABETES SCREENING 1970 FIT 1970 FLEX SIG 1970 sDNA (Cologuard) 1970 YEARLY PREVENTIVE VISIT 1973 COLONOSCOPY 1980 COLORECTAL CANCER SCREENING 1980 HIV SCREENING 1985 HEPATITIS C SCREENING 1988 HEPATITIS B VACCINE (1 of 3 - 19+ 3-dose series) 1989 LIPID 2010 PNEUMOCOCCAL VACCINE 50+ YEARS (1 of 1 - PCV) 2020 ZOSTER VACCINE (1 of 2) 2020 COVID-19 VACCINE ( - 2023- season) 2024 05/21/2022, 04/25/2021, 08/29/2020, Additional history exists PHQ-2 (once per calendar year) 2024 INFLUENZA VACCINE (#1) 2025 05/21/2022, 2021 DTAP/TDAP/TD VACCINE (3 - Td or Tdap) 06/06/2031 06/06/2021, 12/24/2005 HPV VACCINE (No Doses Required) Completed MENINGITIS VACCINE Aged Out No longer eligible based on patient's age to complete this topic Medical Devices Implanted Type Area Angular Js Developer Device Identifier Shelf Expiration Date Model / Serial / Lot Drillable Bone Void Filler 5 Cc Implanted:Qty : 1 on 10/15/2023 by Francis Banks MD at [facility] Cement, Bone Right: Knee Depuy 01/01/2026 07.705.00 5S / / [id number] Drillable Bone Void Filler, 3cc Implanted:Qty : 1 on 10/15/2023 by Francis Banks MD at [facility] Cement, Bone Right: Knee SYNTHES 02/01/2026 07.705.00 3S / / [id number] Imp Scr Syn Ang Locking 3.5x80mm 02.127.180 - [id number] Implanted:Qty : 1 on 10/15/2023 by Francis Banks MD at [facility] Metallic Hardware/Anc hor Right: Tibia SYNTHES-STRATEC 02.127.18 0 / / LOAD [id number] SEPTEMBER 30 2023 Imp Scr Syn Cortex 3.5x34mm Self Tap Ss 204.834 - [id number] Implanted:Qty : 1 on 10/15/2023 by Francis Banks MD at [facility] Metallic Hardware/Anc hor Right: Tibia SYNTHES-STRATEC 204.834 / / LOAD [id number] 07 OCT 2023 Plate Proximal Tibia 6h Rt 3.1b577xu - [id number] Implanted:Qty : 1 on 10/15/2023 by Francis Banks MD at [facility] Metallic Hardware/Anc hor Right: Tibia SYNTHES-STRATEC 02.127.22 0 / / LOAD 8102 SEPTEMBER 30 2023 Screw Stardrive W/T15 3.5x32mm - [id number] Implanted:Qty : 1 on 10/15/2023 by Francis Banks MD at [facility] Metallic Hardware/Anc hor Right: Tibia SYNTHES-STRATEC 02.127.13 2 / / LOAD 8102 SEPTEMBER 30 2023 Screw Stardrive W/T15 3.5x34mm - [id number] Implanted:Qty : 1 on 10/15/2023 by Francis Banks MD at [facility] Metallic Hardware/Anc hor Right: Tibia SYNTHES-STRATEC 02.127.13 4 / / LOAD 8102 SEPTEMBER 30 2023 Screw Stardrive W/T15 3.5x50mm - [id number] Implanted:Qty : 2 on 10/15/2023 by Francis Banks MD at [facility] Metallic Hardware/Anc hor Right: Tibia SYNTHES-STRATEC 02.127.15 0 / / LOAD 8102 SEPTEMBER 30 2023 Imp Scr Syn Ang Locking 3.5x70mm 02.127.170 - [id number] Implanted:Qty : 1 on 10/15/2023 by rFancis Banks MD at [facility] Metallic Hardware/Anc hor Right: Tibia SYNTHES-STRATEC 02.127.17 0 / / LOAD 8102 SEPTEMBER 30 2023 Screw Stardrive W/T15 3.5x75mm - [id number] Implanted:Qty : 2 on 10/15/2023 by Francis Banks MD at [facility] Metallic Hardware/Anc hor Right: Tibia SYNTHES-STRATEC 02.127.17 5 / / LOAD 8102 SEPTEMBER 30 2023 Imp Wire Jane 1.7a264hm 292.71 - [id number] Implanted:Qty : 10 on 10/15/2023 by Francis Banks MD at [facility] Right: Knee SYNTHES-STRATEC 292.71 / / LOAD 8006 07 OCT 2023 [place] Care Teams Copy Operator Relationship Specialty Start Date End Date Suman Hartman MD [facility] [address] [place] [address] PCP - General Family Medicine 10/15/23
--- OUTSIDE RECORDS SUMMARY | 2025-01-05 07:30 | XMS_ITS | Clinical Summary ---
Author Organization [facility] Address [address] [place] [id number] Care Team Providers Care Regional Planner Name Role Phone Giacomo Mcclain MD Primary Care Provider [phone] Allergies No known active allergies Medications xsbkimqc-fsk-XK -lycopen-lutein (CENTRUM SILVER MEN) 300-600-300 mcg tab Take 1 tablet by mouth once daily. 0 7 Active Klksr-2-ZNB-EPA -Fish Oil (FISH OIL) 1,000 mg (120 mg-180 mg) cap Take 1 capsule by mouth once daily. 0 7 Active nortriptyline (PAMELOR) 10 mg capsule 2 Active SUMAtriptan (IMITREX) 100 mg tablet 2 Active diclofenac (VOLTAREN) 75 mg delayed-release tablet Take 75 mg by mouth. 1 Active methylPREDNISol one (Medrol, John,) 4 mg tabletIndicatio ns:Subacute maxillary sinusitis Take by mouth as instructed per packaging. 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 Gender Identity Not on file Sexual Orientation Not on file Obstetrics History Last Filed Vital Signs Vital Sign Reading Time Taken Comments Blood Pressure 120/80 04/15/2022 12:48 PM RN CARDIOLOGY Pulse 98 04/15/2022 12:58 PM RN CARDIOLOGY Temperature 36.4 C (97.6 F) 04/15/2022 12:48 PM RN CARDIOLOGY Respiratory Rate 14 04/15/2022 12:48 PM RN CARDIOLOGY Oxygen Saturation 98% 04/15/2022 12:48 PM RN CARDIOLOGY Inhaled Oxygen Concentration - - Weight 68.6 kg (151 lb 4.8 oz) 04/15/2022 12:48 PM RN CARDIOLOGY Height 173.5 cm (5' 8.31) 09/28/2016 8:31 AM CD T Body Mass Index 22.8 09/28/2016 8:31 AM CDT Plan of Treatment Health Maintenance Due Date Last Done Comments Tetanus booster 1981 Depression screening for age 12+ 1982 HIV for age 15-65 1985 Hepatitis C screening for age 18-79 1988 Hepatitis B series for 19+ ( 1 of 3 - 19+ 3-dose series) 1989 Colonoscopy through age 75 2015 Lipids for age 45-75 2015 BMI (ht and wt on same day) for age 18+ 09/28/2017 09/28/2016 Pneumococcal series for age 50+ (1 of 1 - PCV) 2020 Zoster (shingles) series for age 50+ (1 of 2) 2020 COVID-19 vaccine series ( season) 2024 04/25/2021, 08/29/2020, 07/31/2020 Influenza Vaccine (#1) 2025 Procedures Procedure Name Priority Date/Time Associated Diagnosis Comments LAB TRACKING EVENT Routine 11/13/2024 9: 06 AM CDT PATH TISSUE EXAM Routine 11/13/2024 9:06 AM CDT from Last 3 Months Results * LAB TRACKING EVENT (11/13/2024 9:06 AM CDT) Other (Other) Client Collect / Unknown 11/13/2024 9:06 AM CDT 11/14/2024 8:08 AM CDT Karley Javed MD LAB BILL ONLY Final Re sult [facility] [address] [place] [address], [place] * PATH TISSUE EXAM (11/13/2024 9:06 AM CDT) Case Report Pathology Report Case: [id number] Authorizing Provider: Karley Javed MD Collected: 11/13/2024 0906 Ordering Location: [facility] Received: 11/14/2024 1143 Pathologist: Kolby Roblero IV, MD Specimen: Splenic Flexure Polyp 11/15/2024 9:59 AM CDT [facility] Final Diagnosis A) COLON, SPLENIC FLEXURE, POLYPECTOMY: 1. Hyperplastic polyp 11/15/2024 9:59 AM CDT [facility] at 0959 CDT Clinical Information Mr. Schroeder is a 54 y.o. who presents for screening colonoscopy. Colonoscopy findings include: -1, 8 mm splenic flexure polyp 11/15/2024 9:59 AM CDT [facility] Gross Description A) Received in formalin is a rg mucosal fragment measuring 16 mm in greatest dimension, which is bisected and entirely submitted in one cassette. It is labeled with the patient's name and designated splenic flexure polyp. Tana Farias 11/14/2024 3:26 PM 11/15/2024 9:59 AM CDT [facility] Microscopic Description The final diagnosis is based on microscopic examination of appropriate sections of all specimens. 11/15/2024 9:59 AM CDT [facility] Additional Information Interpreted at [facility] - [address], [place] [address] 11/15/2024 9:59 AM CDT [facility] Other (Splenic Flexure Polyp) 11/13/2024 9:06 AM CDT 11/14/2024 11:43 AM CDT us Karley Javed MD PATHOLOGY/CYTOLOGY Final Result [facility] [address] [place] [address], from Last 3 Months Insurance [employer] Care Teams Regional Planner Relationship Specialty Start Date End Date Giacomo Mcclain MD [address] [place] [phone] PCP - General Family Practice 06/28/20
--- NOTE | 2025-01-05 08:14 | ED.GENADULT ---
HPI - General Adult General Chief complaint: Headache/Migraine Stated complaint: headache Time Seen by Provider: 01/05/25 08:13 History of Present Illness HPI narrative: patient has a headache in the front of the forehead and started on Wednesday has not gone away. feeling slightly nauseated no vomiting. denies vision changes. went to x 2 with Toradol injections and no relief of pain. taking imetrex and motrin/Tylenol with no relief of pain. located in the between eyes and c/o a lot of squeezing. 54-year-old man presenting to the emergency department with concern of a frontal headache. Has not had any head cold symptoms but it occurred to him perhaps there might be a sinus problem. Has now had 5 days of a headache. Does have a history of migraine and tension headaches. Headache is not necessarily atypical at least in location but intensity and duration is different. Has tried his Imitrex and ibuprofen and acetaminophen without relief. Intense and does a squeezing gestured indicate quality of pain I think. Has been to Urgent Care now twice with Toradol injections. Actually feels that maybe the Toradol made his frontal headache worse. Was also initiated on a course of antibiotics No discoordination or visual disturbances. Is not particularly light sensitive from this headache although can otherwise be little light intolerant historically. Does have left trapezial muscle tension and pain and left neck pain which is chronic. Has been seeing physical therapy. No fever. No rash. Does get emgality injections which last received yesterday and also took couple of doses of is sumatriptan yesterday. Spouse says that he has maxed out his monthly. Reviewing record looks like has been treated for sinus disease number of times in the past. Does have environmental allergies. Related Data Home Medications ?Medication ?Instructions ?Recorded ?Confirmed sumatriptan succinate 100 mg tablet 100 mg PO Q2-4H PRN migraine 01/22/22 01/05/25 headache galcanezumab-gnlm 120 mg/mL 120 mg subcut MONTHLY 01/19/24 01/05/25 subcutaneous pen injector (Emgality Pen) cetirizine 10 mg tablet (Zyrtec) 10 mg PO QDAY PRN 09/15/24 01/05/25 magnesium 360 mg PO DAILY 10/09/24 01/05/25 melatonin 5 mg PO PRN 10/09/24 10/09/24 amoxicillin 875 mg-potassium 1 tab PO BID 01/04/25 01/04/25 clavulanate 125 mg tablet Previous Rx's ?Medication ?Instructions ?Recorded peg 3350-electrolytes 236 240 ml PO ONCE #4,000 mL 11/09/24 gram-22.74 gram-6.74 gram-5.86 gram solution (Golytely) cyclobenzaprine 10 mg tablet 10 mg PO QHS #90 tabs 12/04/24 Allergies Allergy/AdvReac Type Severity Reaction Status Date / Time No Known Drug Allergies Allergy Verified 01/05/25 07:53 Review of Systems Status of ROS: Reports: 6 or more systems reviewed and unremarkable except as noted in History and below [facility] Medical History Dupuytren's contracture of right hand ?M72.0 - Palmar fascial fibromatosis [Dupuytren] (ICD-10) Chronic neck pain ?M54.2 - Cervicalgia (ICD-10) ?G89.29 - Other chronic pain (ICD-10) Vasovagal syncope ?R55 - Syncope and collapse (ICD-10) Hyperlipidemia ?E78.5 - Hyperlipidemia, unspecified (ICD-10) History of torsion of testis ?Z87.438 - Personal history of other diseases of male genital organs (ICD-10) Fracture of right femur ?S72.91XA - Unspecified fracture of right femur, initial encounter for closed fracture (ICD-10) Environmental allergies ?Z91.09 - Other allergy status, other than to drugs and biological substances (ICD-10) Elevated liver function tests ?R79.89 - Other specified abnormal findings of blood chemistry (ICD-10) Congenital hearing loss ?H90.5 - Unspecified sensorineural hearing loss (ICD-10) Chronic abdominal pain ?R10.9 - Unspecified abdominal pain (ICD-10) ?G89.29 - Other chronic pain (ICD-10) Benign prostatic hyperplasia ?N40.0 - Benign prostatic hyperplasia without lower urinary tract symptoms (ICD-10) 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: , 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, 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, 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, 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 What is your current living situation?: I presently have a place to live Problems where you live: no known problems In the past 12 months, utilities in danger of being shut off: no In past 12 months, lack of transportation kept you from medical appts, meetings, work, or getting things needed for daily living: no In the past 12 mos, have been you worried that your food would run out before you had money to buy more?: never true In the past 12 mos, the food you bought just didn't last and you didn't have money to buy more?: never true Smoking Status: Never smoker Second hand tobacco smoke exposure: No How often do you have a drink containing alcohol: never AUDIT-C Alcohol total score: 0 Non-prescribed substance use: denies use How often does anyone, including family, friends and others, physically hurt you: never How often does anyone, including family, friends and others, insult or talk down to you: never How often does anyone, including family, friends and others, threaten you with harm: never How often does anyone, including family, friends and others, scream or curse at you: never Exam Narrative: Exam Narrative: Looks uncomfortable. Cranial nerves 2-12 intact. Pupils are 3 mm and equal. Head is atraumatic. Is hard of hearing with hearing aids in place. Discomfort to palpation along the left trapezius and the left sternocleidomastoid musculature. Neck appears supple though. Is breathing easily. Heart is in regular rate. Moving all extremities fluidly. No pain to palpation about the maxillary sinuses. Does not sound congested in the nasopharynx. No facial swelling or erythema. Const: Vital Signs, click to edit/add: Vital Signs - 24 hr 01/05/25 07:45 01/05/25 10:48 01/05/25 10:48 Temperature 99.1 F Pulse Rate 96 Pulse Rate [Right Pulse Oximeter] 82 98 Respiratory Rate 16 16 Blood Pressure 138/97 H Blood Pressure [Ri ght Upper Arm] 145/87 H 138/97 H Pulse Oximetry 97 96 98 Oxygen Delivery Me thod Room Air Room Air Oxygen Flow Rate 01/05/25 10:49 01/05/25 11:00 01/05/25 11:01 Temperature Pulse Rate 98 101 H 99 Pulse Rate [Right Pulse Oximeter] Respiratory Rate 16 Blood Pressure 146/102 H Blood Pressure [Ri ght Upper Arm] Pulse Oximetry 96 97 97 Oxygen Delivery Me thod Oxygen Flow Rate 01/05/25 11:02 01/05/25 11:15 01/05/25 11:16 Temperature Pulse Rate 100 99 101 H Pulse Rate [Right Pulse Oximeter] Respiratory Rate 18 Blood Pressure 153/104 H Blood Pressure [Ri ght Upper Arm] Pulse Oximetry 97 97 97 Oxygen Delivery Me thod Oxygen Flow Rate 01/05/25 12:09 Temperature Pulse Rate Pulse Rate [Right Pulse Oximeter] Respiratory Rate Blood Pressure Blood Pressure [Ri ght Upper Arm] Pulse Oximetry 100 Oxygen Delivery Me thod Nasal Cannula Oxygen Flow Rate 4 Documenting provider has reviewed patient's vital signs: yes Course Vital Signs Vital signs: Initial Vital Signs Temperature 99.1 F 01/05/25 07:45 Temperature Source Temporal Artery Scan 01/05/25 07:45 Pulse Rate 82 01/05/25 07:45 Respiratory Rate 16 01/05/25 07:45 Blood Pressure 145/87 H 01/05/25 07:45 Blood Pressure Mean 106 H 01/05/25 07:45 Blood Pressure Position Sitting 01/05/25 07:45 Pulse Oximetry 97 01/05/25 07:45 Oxygen Delivery Method Room Air 01/05/25 07:45 Vital Signs Temperature 99.1 F 01/05/25 07:45 Pulse Rate 82 01/05/25 07:45 Respiratory Rate 16 01/05/25 07:45 Blood Pressure 145/87 H 01/05/25 07:45 Pulse Oximetry 97 01/05/25 07:45 Oxygen Delivery Method Room Air 01/05/25 07:45 Temperature 99.1 F 01/05/25 07:45 Pulse Rate 105 H 01/05/25 14:00 Respiratory Rate 18 01/05/25 11:16 Blood Pressure 153/104 H 01/05/25 11:16 Pulse Oximetry 94 01/05/25 14:00 Oxygen Delivery Method Room Air 01/05/25 13:47 Oxygen Flow Rate 4 01/05/25 12:09 Medications Administered Medications: Discontinued Medications Generic Name Dose Route Start Last Admin Trade Name Freq PRN Reason Stop Dose Admin Bupivacaine HCl 30 ml 01/05/25 13:43 01/05/25 14:13 Bupivacaine 0.25% 30 Ml INJECTION 01/05/25 13:44 30 ml ONCE ONE Administration Dexamethasone 8 mg 01/05/25 08:28 01/05/25 09:01 Dexamethasone 4 Mg/Ml Vial IVP 01/05/25 08:29 8 mg ONCE ONE Administration Diphenhydramine HCl 25 mg 01/05/25 08:28 01/05/25 09:01 Diphenhydramine 50 Mg/Ml Inj IVP 01/05/25 08:29 25 mg ONCE ONE Administration Hydromorphone HCl 0.5 mg 01/05/25 13:05 01/05/25 13:19 Hydromorphone 0.5 Mg/0.5 Ml Inj IVP 01/05/25 13:06 0.5 mg ONCE ONE Administration Sodium Chloride 1,000 mls @ 1,000 mls/hr 01/05/25 08:28 01/05/25 09:50 0.9 % Sodium Chloride 1000 Ml IV 01/05/25 09:27 Infused .Q1H ONE Infusion Ketamine HCl 20 mg/ Sodium 100.2 mls @ 200.4 mls/hr 01/05/25 09:44 01/05/25 11:24 Chloride IVPB 01/05/25 09:45 Infused ONCE ONE Infusion Ketorolac Tromethamine 30 mg 01/05/25 08:28 01/05/25 09:01 Ketorolac 30 Mg/Ml Inj IVP 01/05/25 08:29 30 mg ONCE ONE Administration Lidocaine HCl 2 ml 01/05/25 12:06 01/05/25 12:08 Lidocaine 1% 5 Ml (Pf) 5 Ml Vial INJECTION 01/05/25 12:07 2 ml ONCE ONE Administration Medical Decision Making MDM Narrative Medical decision making narrative: Sounds like not in a typical headache for him other than duration and resistance. Does not have symptoms of encephalopathy or encephalitis otherwise. I would try treatment 1st and then imaging if needed looking for bleed or perhaps sinus disease Ordered for normal saline IV, ketorolac, diphenhydramine. Also ordered for dexamethasone. Without improvement with these symptoms then proceeded with ketamine infusion. Still no improvement in squeezing forehead pain. With no improvement in symptoms and decided to do head and face CT. By my independent review images are unremarkable. Radiology noting microangiopathy suspected INDICATION: Severe frontal headache TECHNIQUE: CT head without contrast. COMPARISON: None. FINDINGS: CSF spaces: Within normal limits for age. Brain parenchyma: The smith-white differentiation is normal. No sign of mass, hemorrhage, or midline shift. Small low-density within the deep white matter. Skull base and calvarium: The visualized paranasal sinuses and mastoid air cells demonstrate no acute or significant findings. The visualized orbits are grossly unremarkable. No skull fractures. IMPRESSION: 1. No intracranial bleed or mass effect. 2. Mild nonspecific white matter disease, likely microangiopathy. Please note that all CT scans at this facility use dose modulation, iterative reconstruction, and/or weight-based dosing when appropriate to reduce radiation dose to as low as reasonably achievable. Dictated by Fabián Thomas MD @ 01/05/2025 11:00:16 AM INDICATION: Severe frontal headache TECHNIQUE: CT maxillofacial without contrast. COMPARISON: Sinus CT 10/06/2022 FINDINGS: Facial bones: No fractures or bone lesions. Specifically the nasal bones, temporomandibular joints, maxilla and mandible appear intact. Orbits and globes: Unremarkable. Globes are intact. No sign of intraorbital hemorrhage or emphysema. Sinuses: Trace mucosal thickening left maxillary sinus. Soft tissues: Unremarkable. IMPRESSION: Trace sinus mucosal thickening, essentially unremarkable maxillofacial CT. Please note that all CT scans at this facility use dose modulation, iterative reconstruction, and/or weight-based dosing when appropriate to reduce radiation dose to as low as reasonably achievable. Dictated by Fabián Thomas MD @ 01/05/2025 11:07:26 AM Trialing intranasal lidocaine and nasal cannula oxygen. This also did not result in relief of pain. I did try to reach out to his neurologist; unfortunately played phone tag but message was to try dexamethasone which had already been done. Finally singular dose of Dilaudid dose with minimal relief. Indicating pain really is right between the eyebrows. I decided to try to simply direct lidocaine injection. It sounds like he has been diagnosed with occipital neuralgia but injection for this had failed before. His symptoms though today are not consistent with that. He then recalls that he did have a lidocaine injection superior to the left eye before of maybe some relief at the time. I did inject supraorbital nerves with 1 mL of bupivacaine bilaterally. This did help his pain but left the center still with some pain. Finally injected directly there. Symptoms finally essentially gone. See patient discharge plan for further discussion I am happy you are feeling better. I hope this continues to improve. Enjoy your time away. I would contact Dr. Powers for further recommendations at this point. He may reach out to you. If he and I happened to connect, I will call you with further recommendations. Otherwise, be seen for marked increase in severe headache, associated fever, repeated vomiting. Medical Records Medical records reviewed: Yes I reviewed the patient's medical records Discharge Plan Discharge Clinical Impression: Frontal headache Patient Disposition: Home w/ Parent or Adult Condition: Improved Instructions: Acute Headache (ED) Additional Instructions: I am happy you are feeling better. I hope this continues to improve. Enjoy your time away. I would contact Dr. Powers for further recommendations at this point. He may reach out to you. If he and I happened to connect, I will call you with further recommendations. Otherwise, be seen for marked increase in severe headache, associated fever, repeated vomiting. Prescriptions: No Action magnesium 360 mg PO DAILY melatonin 5 mg PO PRN Patient Comments: extended release sumatriptan succinate 100 mg tablet 100 mg PO Q2-4H PRN (Reason: migraine headache) Emgality Pen 120 mg/mL pen injector 120 mg subcut MONTHLY cetirizine [Zyrtec] 10 mg tablet 10 mg PO QDAY PRN amoxicillin-pot clavulanate 875-125 mg tablet 1 tab PO BID peg 3350-electrolytes [Golytely] 236-22.74-6.74 -5.86 gram recon soln 240 ml PO ONCE Qty: 4000 0RF Rx Instructions: 4pm day prior to procedure. Drink 8oz glass every 15 minutes until 1/2 of solution is gone. 6 hours prior to your procedure time drink 8oz glass every 15 minutes until remaining solution is gone. cyclobenzaprine 10 mg tablet 10 mg PO QHS Qty: 90 1RF Follow Up/Referrals: Suman Hartman MD [Primary Care Provider, Family Practice] Stand Alone Forms: [employer] Info Instructions
--- NOTE | 2025-01-05 09:43 | CRLHL7_ITS ---
For Patients: As a result of the Century Cures Act, medical imaging exams and procedure reports are released immediately into your electronic medical record. You may view this report before your referring provider. If you have questions, please contact your health care provider. INDICATION: Severe frontal headache TECHNIQUE: CT maxillofacial without contrast. COMPARISON: Sinus CT 10/06/2022 FINDINGS: Facial bones: No fractures or bone lesions. Specifically the nasal bones, temporomandibular joints, maxilla and mandible appear intact. Orbits and globes: Unremarkable. Globes are intact. No sign of intraorbital hemorrhage or emphysema. Sinuses: Trace mucosal thickening left maxillary sinus. Soft tissues: Unremarkable. IMPRESSION: Trace sinus mucosal thickening, essentially unremarkable maxillofacial CT. Please note that all CT scans at this facility use dose modulation, iterative reconstruction, and/or weight-based dosing when appropriate to reduce radiation dose to as low as reasonably achievable. Dictated by Fabián Thomas MD @ 01/05/2025 11:07:26 AM (Electronically Signed)
--- NOTE | 2025-01-05 09:43 | CRLHL7_ITS ---
For Patients: As a result of the Century Cures Act, medical imaging exams and procedure reports are released immediately into your electronic medical record. You may view this report before your referring provider. If you have questions, please contact your health care provider. INDICATION: Severe frontal headache TECHNIQUE: CT head without contrast. COMPARISON: None. FINDINGS: CSF spaces: Within normal limits for age. Brain parenchyma: The smith-white differentiation is normal. No sign of mass, hemorrhage, or midline shift. Small low-density within the deep white matter. Skull base and calvarium: The visualized paranasal sinuses and mastoid air cells demonstrate no acute or significant findings. The visualized orbits are grossly unremarkable. No skull fractures. IMPRESSION: 1. No intracranial bleed or mass effect. 2. Mild nonspecific white matter disease, likely microangiopathy. Please note that all CT scans at this facility use dose modulation, iterative reconstruction, and/or weight-based dosing when appropriate to reduce radiation dose to as low as reasonably achievable. Dictated by Fabián Thomas MD @ 01/05/2025 11:00:16 AM (Electronically Signed)
[2025-01-05] MEDS: KETAMINE 50 MG/0.5 ML 20 MG in 0.9 % SODIUM CHLORIDE 100 ml 100 ML 200.4 MG IVPB (10:46)
[2025-01-05] MEDS: LIDOCAINE 1% 5 ml (pf) 5 ML VIAL 2 ML INJECTION (12:08)
[2025-01-05] MEDS: BUPIVACAINE 0.25% 30 ML INJECTION (14:13)
== END 2025-01-05 14:14 | disposition home or self-care (01) ==
PROVIDERS: Emergency Provider Family Medicine; PCP Family Medicine
DX: R51.9 Headache, unspecified (principal)
CPT/HCPCS: 70450; 70486; 94761; 96365; 96375; 99284; J0665; J1100; J1171; J1200; J1885; J3490; J7030

== ENCOUNTER 2025-01-15 10:24 | Outpatient (CLI) | payer BC, SELFPAY | END 2025-01-15 10:25 | disposition home or self-care (01) | PROVIDERS: PCP Family Medicine; Visit Provider Family Medicine | DX: E78.2 Mixed hyperlipidemia (principal); R79.89 Other specified abnormal findings of blood chemistry; Z12.5 Encounter for screening for malignant neoplasm of prostate; N40.0 Benign prostatic hyperplasia without lower urinary tract symptoms | CPT/HCPCS: 80048; 80061; 84460; 85025; G0103 ==

== ENCOUNTER 2025-04-09 14:14 | Outpatient (CLI) | payer BC, SELFPAY ==
--- NOTE | 2025-04-09 14:30 | CRLHL7_ITS ---
For Patients: As a result of the Cures Act, medical imaging exams and procedure reports are released immediately into your electronic medical record. You may view this report before your referring provider. If you have questions, please contact your health care provider. Indication: Headache, neck pain. Technique: Multisequence multiplanar MRI of the cervical spine without the use of intravenous contrast. Comparison: MRI cervical spine dated 12/28/2022. Findings: Similar straightening of the normal cervical lordosis. Vertebral body heights are maintained. Bone marrow signal intensity is within normal limits. The cervical spinal cord is normal in signal intensity. There is similar multilevel disc desiccation and height loss. The prevertebral soft tissues are unremarkable. C2-C3: Mild facet joint arthrosis. No significant spinal canal or neural foraminal stenosis. C3-C4: Symmetric disc bulge. Slight worsening of mild spinal canal stenosis. Similar mild-moderate left neural foraminal narrowing associated with uncovertebral and facet arthrosis. No significant right neural foraminal narrowing. C4-C5: Shallow symmetric disc bulge. No significant spinal canal stenosis or neural foraminal narrowing. C5-C6: Shallow symmetric disc bulge. No significant spinal canal stenosis. Similar mild-moderate bilateral neural foraminal narrowing associated with uncovertebral arthrosis. C6-C7: Shallow symmetric disc bulge. No significant spinal canal stenosis. Similar mild-moderate bilateral neural foraminal narrowing associated with uncovertebral arthrosis. C7-T1: Mild facet joint arthrosis. No significant spinal canal or neural foraminal stenosis. Impression: 1. Similar straightening of the cervical lordosis and multilevel disc height loss. 2. At C3-C4, slight worsening of mild spinal canal stenosis and similar mild-moderate left neural foraminal narrowing. 3. At C5-C6 and C6-C7, similar mild-moderate bilateral neural foraminal narrowing. Dictated by Matias Ashford MD @ 04/09/2025 4:18:58 PM (Electronically Signed)
== END 2025-04-09 14:15 | disposition home or self-care (01) ==
LOC: MRI 14:15
PROVIDERS: PCP Family Medicine; Visit Provider Family Medicine
DX: R51.9 Headache, unspecified (principal); M50.21 Other cervical disc displacement, high cervical region; M50.222 Other cervical disc displacement at C5-C6 level; M50.223 Other cervical disc displacement at C6-C7 level; M40.50 Lordosis, unspecified, site unspecified
CPT/HCPCS: 72141